=== PATIENT | female | born 1990 | race Caucasian/White ===

== ENCOUNTER 2017-11-30 13:43 | Outpatient (REF) | payer MEDICAID, SELFPAY | END 2017-11-30 14:03 | LOC: LBN 13:43 | PROVIDERS: Visit Provider Nurse Practitioner Family | DX: N76.0 Acute vaginitis (principal) | CPT/HCPCS: 87086 ==

== ENCOUNTER 2017-12-21 07:49 | Emergency (ER) | payer MEDICAID, SELFPAY ==
[2017-12-21 07:58] VITALS: BP 130/82; PULSE 85; RESP 16; TEMP 36.7
[2017-12-21 08:08] LABS: Bilirubin Negative (Negative); Blood Negative (Negative); Clarity Clear; Glucose Negative (Negative); Ketones Negative (Negative); Leukocyte Esterase Negative (Negative); Nitrite Negative (Negative); Urobilinogen 0.2 EU/dL (Up TO 0.2); pH 6.5 (5-8)
--- NOTE | 2017-12-21 08:11 | DI.US_ITS ---
SYMPTOM/DIAGNOSIS: LLQ PAIN, ? OVARIAN CYST, VOMITING PELVIC ULTRASOUND: Pelvic ultrasound was performed transabdominally and transvaginally. Please see the worksheet for measurements of the pelvic structures. Uterus is normal in appearance with a 5 mm. homogeneous endometrial stripe. Ovaries have a normal follicular appearance. Limited scanning of the kidneys is unremarkable. No free fluid identified in the cul-de-sac. CONCLUSION: Unremarkable pelvic ultrasound.
[2017-12-21] MEDS: Ibuprofen 800 MG TAB PO (08:16)
[2017-12-21] MEDS: Acetaminophen 500 MG TAB 1000 MG PO (08:17)
--- NOTE | 2017-12-21 08:51 | W.ED.GENAD ---
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: Pain in joint involving left pelvic region and thigh Primary Care Provider: Daphney Blanco ED Provider: Hasmukh Drake Home Meds and New Rx's Prescriptions: New acetaminophen [Mapap Extra Strength] 500 MG tablet 1,000 mg PO Q6H 5 Days Qty: 60 RF: 0 ibuprofen [Motrin IB] 200 MG tablet 600 mg PO Q6H 5 Days Qty: 60 RF: 0 No Action etonogestrel-ethinyl estradiol [NuvaRing] 1 EACH ring 1 ea VG DIRECTED Qty: 3 RF: 4 sertraline 50 MG tablet 50 mg PO DAILY Qty: 90 RF: 2 albuterol sulfate [Ventolin HFA] 60 PUFF HFA aerosol inhaler 2 puff Inhalation QID PRNRF: 0 Discharge Instructions Instructions: Pelvic Pain in Women (ED) Additional Instructions: Please take Tylenol Motrin for your pain. Please follow-up at your scheduled appointment tomorrow with your woman's clinic. If you notice any worsening of your symptoms, or any new symptoms such as vomiting, diarrhea, fever, chills, shortness of breath, chest pain, numbness, weakness, or fainting , please return immediately to the emergency department for reevaluation. Please follow up with your primary care provider as soon as possible for reassessment and reevaluation. As always, it was a pleasure participating in your medical care today. Referrals: Daphney Blanco, L[employer] HE[employer] ADVOCATE [Primary Care Provider] - Medical Decision Making This is a pleasant 27-year-old female who presents for evaluation of left lower pelvic pain, that is been present for the last month but is worsened in the last few days. She has had associated vaginal discharge which she describes as green. Pain is worse in the night in the morning. Urinary frequency is noted as well. No history of STDs in the past. Physical exam demonstrates left-sided pelvic pain, minimal discharge. And concern for potential ovarian cyst as the source of her symptoms secondary to the duration, however STDs and PID is certainly on the differential. We will get an ultrasound to rule out these acute processes. We will treat prophylactically with Rocephin and azithromycin at this time. 10:46 AM Patient's smears have come back negative for trichomoniasis, yeast, or bacterial vaginosis. No need for additional treatment in regards to these. We are still pending ultrasound evaluation results. 11:19 AM The patient's ultrasound came back and per the radiologist there is no acute process, no signs of torsion, blood flow noted in both ovaries, no free fluid in the pelvis, and small cysts that are presentI did reevaluate the patient and she is feeling much better at this time. Repeat abdominal exam demonstrates no right lower quadrant tenderness. Pain continues to be very mild but localized in the left lower pelvic region. I do not feel that there is any acute abdominal pathology at this point. Her clinical exam would be inconsistent with any acute abdominal process with the current location of her pain. Urinalysis is negative, I feel that her symptoms may be secondary to mittelschmerz, or her periods. We did provide prophylactic Rocephin and azithromycin. She does have follow-up tomorrow morning at her woman's health clinic, we do recommend close follow-up there we discussed red flags which to return the patient understands. I have extensively reviewed the treatment plan and discharge instructions with the patient. I have addressed all patient concerns at this time. The patient was made aware of what symptoms to monitor for that would warrant a return to the emergency department. Discussed the plan with the patient, they demonstrate verbal understanding and agreement with our assessment and plan at this time. HPI General Date/Time Provider Initiated Documentation: 12/21/17 08:11. HPI Narrative: This is a pleasant 27-year-old female with no significant past medical history who presents today for evaluation of left lower quadrant pain for the last month she is notably worsened in the last few days. She states that the pain is gradually been getting worse, she describes it as sharp in nature. It comes and goes in severity. It is worse at night and in the morning. There are no relieving factors. No particular aggravating factors. Associated symptoms include one episode of vomiting that occurred this morning, which to concern her and brought her in. Additionally she has had associated vaginal discharge which she describes as green in color. She denies any history of STDs. She does have increase in urinary frequency but denies any dysuria fever or chills. The patient also states that 1-2 weeks ago she had an episode of intercourse, and had notable dyspareunia and severe pain after this, it is not had intercourse since then. She admits to only having one sexual partner, and denies any other sexual partners or any history of STDs. She denies any hematemesis, hematochezia, melena, or acholic stool. She states the vomiting was secondary to pain rather than nausea. She denies any previous abdominal surgeries. She has no other complaints at this time. She denies any IV or illicit drug use she denies any pertinent family history. Of note she does use the NuvaRing and took this out 2 days ago. Her last menstrual period was 3 weeks ago. Related Data Home Medications Medication Instructions Recorded Confirmed albuterol sulfate [Ventolin HFA] 2 puff INHALATION QID PRN inh 01/01/17 11/30/17 etonogestrel-ethinyl estradiol 1 ea VG DIRECTED #3 vag.ring 03/27/17 11/30/17 [Nuvaring Vaginal Ring] sertraline 50 mg PO DAILY #90 tab-cap 05/23/17 11/30/17 acetaminophen [Mapap Extra 1,000 mg PO Q6H 5 Days #60 tab 12/21/17 Strength] ibuprofen [Motrin Ib] 600 mg PO Q6H 5 Days #60 tab 12/21/17 Previous Rx's Medication Instructions Recorded albuterol sulfate [Ventolin HFA] 2 puff INHALATION QID PRN inh 01/01/17 etonogestrel-ethinyl estradiol 1 ea VG DIRECTED #3 vag.ring 03/27/17 [Nuvaring Vaginal Ring] sertraline 50 mg PO DAILY #90 tab-cap 05/23/17 acetaminophen [Mapap Extra 1,000 mg PO Q6H 5 Days #60 tab 12/21/17 Strength] ibuprofen [Motrin Ib] 600 mg PO Q6H 5 Days #60 tab 12/21/17 Allergies Allergy/AdvReac Type Severity Reaction Status Date / Time gluten Allergy Unverified 12/21/17 08:09 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 Grandfather Essential hypertension Heart disease Grandfather Essential hypertension Neoplasm Grandmother Hyperlipidemia Grandmother Essential hypertension Depression Heart disease Cerebrovascular accident Medical History ADHD (attention deficit hyperactivity disorder), inattentive type Allergic rhinitis Celiac disease GERD (gastroesophageal reflux disease) Migraine Mild obstructive sleep apnea Proteinuria Social History household members: other details: 3 current occupational status: employed current occupation: [employer] pets and animals: Yes pets and animals: cat(s) Smoking/Tobacco Use Status: Former Tobacco Use alcohol intake: never substance use type: does not use special rea needs: No seatbelt use: sometimes helmet use: Yes 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 3.ENT: Atraumatic external nose and ears. Moist MM. Neck: Symmetric, trachea midline, No thyromegaly. 4.CVS: +S1/S2, No murmurs or gallops. Peripheral pulses 2+ and equal in all extremities. Brisk capillary refill in all extremities. 5.RESP: Unlabored respiratory effort. Clear to auscultation bilaterally. No wheezes rales or rhonchi 6.GI: Soft, Nontender/Nondistended, No hepatosplenomegaly. No guarding or rebound. No pain at McBurney's point, negative Munoz sign. Palpation of the pelvis elicited mild left lower pelvic pain. Negative Rovsing sign. No right lower pelvic pain. exam was performed with nurse at bedside, no significant lesions. Minimal whitish discharge was noted. Bimanual demonstrated mild tenderness on left-sided bimanual exam, no cervical motion tenderness. 7.MSK: Normocephalic/Atraumatic, Extremities w/o deformity or ttp No cyanosis or clubbing, Normal movement of all extremities 8.Skin: Warm, Dry. No rashes or lesions. 9.Neuro: orientation & mobility specialist II-XII grossly intact. Sensation grossly intact, no focal neurologic deficits. 10.Psych: (AAO) x3. Appropriate mood and affect Course Vital Signs Temperature 36.7 C 12/21/17 07:58 Pulse 85 12/21/17 07:58 Respiratory Rate 16 10/25/18 07:58 Blood Pressure 130/82 12/21/17 07:58 Temperature 36.7 C 12/21/17 07:58 Temperature Source Temporal Artery Scan 12/21/17 07:58 Pulse 85 12/21/17 07:58 Respiratory Rate 16 12/21/17 07:58 Respiratory Effort Non-Labored 12/21/17 08:07 Blood Pressure 130/82 12/21/17 07:58 Blood Pressure Position Sitting 12/21/17 07:58 Oxygen Delivery Method Room Air 12/21/17 07:58 Oxygen Flow Rate 0 12/21/17 07:58 Pain Level 8 12/21/17 08:17 Lab/Test Results Lab/Test Results: 12/21/17 08:14 Vaginal Vaginitis Screen - Pending Laboratory Tests Range/Units 12/21/17 08:00 Urine Color (Yellow) Yellow Urine Clarity Clear Urine pH (5-8) 6.5 Ur Specific [place] (1.005-1.025) 1.020 Urine Protein (Negative) mg/dL Negative Urine Ketones (Negative) mg/dL Negative Urine Blood (Negative) Negative Urine Nitrite (Negative) Negative Urine Bilirubin (Negative) Negative Urine Urobilinogen (Up TO 0.2) EU/dL 0.2 Ur Leukocyte Esterase (Negative) Negative Urine Glucose (Negative) mg/dL Negative POC- Test(urine) Negative
--- NOTE | 2017-12-21 08:54 | ED.GENADUL_ITS ---
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 Clinical Impression: Pain in joint involving left pelvic region and thigh Primary Care Provider: Daphney Blanco ED Provider: Hasmukh Drake Home Meds and New Rx's Prescriptions: New acetaminophen [Mapap Extra Strength] 500 MG tablet 1,000 mg PO Q6H 5 Days Qty: 60 RF: 0 ibuprofen [Motrin IB] 200 MG tablet 600 mg PO Q6H 5 Days Qty: 60 RF: 0 No Action etonogestrel-ethinyl estradiol [NuvaRing] 1 EACH ring 1 ea VG DIRECTED Qty: 3 RF: 4 sertraline 50 MG tablet 50 mg PO DAILY Qty: 90 RF: 2 albuterol sulfate [Ventolin HFA] 60 PUFF HFA aerosol inhaler 2 puff Inhalation QID PRNRF: 0 Discharge Instructions Instructions: Pelvic Pain in Women (ED) Additional Instructions: Please take Tylenol Motrin for your pain. Please follow-up at your scheduled appointment tomorrow with your woman's clinic. If you notice any worsening of your symptoms, or any new symptoms such as vomiting, diarrhea, fever, chills, shortness of breath, chest pain, numbness, weakness, or fainting , please return immediately to the emergency department for reevaluation. Please follow up with your primary care provider as soon as possible for reassessment and reevaluation. As always, it was a pleasure participating in your medical care today. Referrals: Daphney Blanco, OPEN SOURCE DEVELOPER [Primary Care Provider] - Medical Decision Making This is a pleasant 27-year-old female who presents for evaluation of left lower pelvic pain, that is been present for the last month but is worsened in the last few days. She has had associated vaginal discharge which she describes as green. Pain is worse in the night in the morning. Urinary frequency is noted as well. No history of STDs in the past. Physical exam demonstrates left-sided pelvic pain, minimal discharge. And concern for potential ovarian cyst as the source of her symptoms secondary to the duration, however STDs and PID is certainly on the differential. We will get an ultrasound to rule out these acute processes. We will treat prophylactically with Rocephin and azithromycin at this time. 10:46 AM Patient's smears have come back negative for trichomoniasis, yeast, or bacterial vaginosis. No need for additional treatment in regards to these. We are still pending ultrasound evaluation results. 11:19 AM The patient's ultrasound came back and per the radiologist there is no acute process, no signs of torsion, blood flow noted in both ovaries, no free fluid in the pelvis, and small cysts that are presentI did reevaluate the patient and she is feeling much better at this time. Repeat abdominal exam demonstrates no right lower quadrant tenderness. Pain continues to be very mild but localized in the left lower pelvic region. I do not feel that there is any acute abdominal pathology at this point. Her clinical exam would be inconsistent with any acute abdominal process with the current location of her pain. Urinalysis is negative, I feel that her symptoms may be secondary to mittelschmerz, or her periods. We did provide prophylactic Rocephin and azithromycin. She does have follow-up tomorrow morning at her woman's health clinic, we do recommend close follow-up there we discussed red flags which to return the patient understands. I have extensively reviewed the treatment plan and discharge instructions with the patient. I have addressed all patient concerns at this time. The patient was made aware of what symptoms to monitor for that would warrant a return to the emergency department. Discussed the plan with the patient, they demonstrate verbal understanding and agreement with our assessment and plan at this time. HPI General Date/Time Provider Initiated Documentation: 12/21/17 08:11 . HPI Narrative: This is a pleasant 27-year-old female with no significant past medical history who presents today for evaluation of left lower quadrant pain for the last month she is notably worsened in the last few days. She states that the pain is gradually been getting worse, she describes it as sharp in nature. It comes and goes in severity. It is worse at night and in the morning. There are no relieving factors. No particular aggravating factors. Associated symptoms include one episode of vomiting that occurred this morning, which to concern her and brought her in. Additionally she has had associated vaginal discharge which she describes as green in color. She denies any history of STDs. She does have increase in urinary frequency but denies any dysuria fever or chills. The patient also states that 1-2 weeks ago she had an episode of intercourse, and had notable dyspareunia and severe pain after this, it is not had intercourse since then. She admits to only having one sexual partner, and denies any other sexual partners or any history of STDs. She denies any hematemesis, hematochezia, melena, or acholic stool. She states the vomiting was secondary to pain rather than nausea. She denies any previous abdominal surgeries. She has no other complaints at this time. She denies any IV or illicit drug use she denies any pertinent family history. Of note she does use the NuvaRing and took this out 2 days ago. Her last menstrual period was 3 weeks ago. Related Data Home Medications Medication Instructions Recorded Confirmed albuterol sulfate [Ventolin HFA] 2 puff INHALATION QID PRN inh 01/01/17 etonogestrel-ethinyl estradiol 1 ea VG DIRECTED #3 vag.ring 03/27/17 11/30/17 [Nuvaring Vaginal Ring] sertraline 50 mg PO DAILY #90 tab-cap 05/23/17 11/30/17 acetaminophen [Mapap Extra 1,000 mg PO Q6H 5 Days #60 tab 12/21/17 Strength] ibuprofen [Motrin Ib] 600 mg PO Q6H 5 Days #60 tab 12/21/17 Previous Rx's Medication Instructions Recorded albuterol sulfate [Ventolin HFA] 2 puff INHALATION QID PRN inh 01/01/17 etonogestrel-ethinyl estradiol 1 ea VG DIRECTED #3 vag.ring 03/27/17 [Nuvaring Vaginal Ring] sertraline 50 mg PO DAILY #90 tab-cap 05/23/17 acetaminophen [Mapap Extra 1,000 mg PO Q6H 5 Days #60 tab 12/21/17 Strength] ibuprofen [Motrin Ib] 600 mg PO Q6H 5 Days #60 tab 12/21/17 Allergies Allergy/AdvReac Type Severity Reaction Status Date / Time gluten Allergy Unverified 12/21/17 08:09 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 pets and animals: Yes pets and animals: cat(s) Smoking/Tobacco Use Status: Former Tobacco Use alcohol intake: never substance use type: does not use special rea needs: No seatbelt use: sometimes helmet use: Yes helmet use: always 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 3.ENT: Atraumatic external nose and ears. Moist MM. Neck: Symmetric, trachea midline, No thyromegaly. 4.CVS: +S1/S2, No murmurs or gallops. Peripheral pulses 2+ and equal in all extremities. Brisk capillary refill in all extremities. 5.RESP: Unlabored respiratory effort. Clear to auscultation bilaterally. No wheezes rales or rhonchi 6.GI: Soft, Nontender/Nondistended, No hepatosplenomegaly. No guarding or rebound. No pain at McBurney's point, negative Munoz sign. Palpation of the pelvis elicited mild left lower pelvic pain. Negative Rovsing sign. No right lower pelvic pain. exam was performed with nurse at bedside, no significant lesions. Minimal whitish discharge was noted. Bimanual demonstrated mild tenderness on left-sided bimanual exam, no cervical motion tenderness. 7.MSK: Normocephalic/Atraumatic, Extremities w/o deformity or ttp No cyanosis or clubbing, Normal movement of all extremities 8.Skin: Warm, Dry. No rashes or lesions. 9.Neuro: human intelligence II-XII grossly intact. Sensation grossly intact, no focal neurologic deficits. 10.Psych: (AAO) x3. Appropriate mood and affect Course Vital Signs Temperature 36.7 C 12/21/17 07:58 Pulse 85 12/21/17 07:58 Respiratory Rate 16 10/25/18 07:58 Blood Pressure 130/82 12/21/17 07:58 Temperature 36.7 C 12/21/17 07:58 Temperature Source Temporal Artery Scan 12/21/17 07:58 Pulse 85 12/21/17 07:58 Respiratory Rate 16 12/21/17 07:58 Respiratory Effort Non-Labored 12/21/17 08:07 Blood Pressure 130/82 12/21/17 07:58 Blood Pressure Position Sitting 12/21/17 07:58 Oxygen Delivery Method Room Air 12/21/17 07:58 Oxygen Flow Rate 0 12/21/17 07:58 Pain Level 8 12/21/17 08:17 Lab/Test Results Lab/Test Results: 12/21/17 08:14 Vaginal Vaginitis Screen - Pending Laboratory Tests Range/Units 12/21/17 08:00 Urine Color (Yellow) Yellow Urine Clarity Clear Urine pH (5-8) 6.5 Ur Specific [place] (1.005-1.025) 1.020 Urine Protein (Negative) mg/dL Negative Urine Ketones (Negative) mg/dL Negative Urine Blood (Negative) Negative Urine Nitrite (Negative) Negative Urine Bilirubin (Negative) Negative Urine Urobilinogen (Up TO 0.2) EU/dL 0.2 Ur Leukocyte Esterase (Negative) Negative Urine Glucose (Negative) mg/dL Negative POC- Test(urine) Negative
[2017-12-21] MEDS: cefTRIAXone 250 MG VIAL IM (09:40)
[2017-12-21] MEDS: Azithromycin 250 MG TAB 1000 MG PO (09:40)
[2017-12-21 11:37] VITALS: BP 145/84; PULSE 70; RESP 16; TEMP 36.7; O2SAT 99
[2017-12-22 16:37] LABS: Chlamydia Result Negative; GC Result Negative; Specimen Description CERVIX
== END 2017-12-21 11:34 | disposition home or self-care (01) ==
PROVIDERS: Emergency Provider Student in an Organized Health Care Education/Training Program
DX: R10.2 Pelvic and perineal pain (principal); N89.8 Other specified noninflammatory disorders of vagina
CPT/HCPCS: 81025; 87491; 87591; 96372; 99284; 76830; 76856; 81003; 87480; 87510; 87660; J0696

== ENCOUNTER 2018-05-18 14:29 | Outpatient (REF) | payer MEDICAID, SELFPAY ==
--- NOTE | 2018-05-18 14:15 | PAPFT_PTH ---
PATIENT: Clarissa Yusuf LOC: [facility] U#:[id number] AGE/SX: 28/F ROOM: RE05/18/[address]: CICI Cortez : 1990 BED: DIS: 05/18/2018 SPEC #: [id number] RECD: 05/21/18 17:53 STATUS: ROBINA REDa #: [id number] SEPIDEH: 05/18/18 14:[address]: Erica Mullins DEPT: [facility] Cytology RECD BY: Aleta Thayer ENTERED: 05/21/18 17:54 SP TYPE: PAPFT OTHR DR: Daphney Blanco APRN Tissues: 1 - CX/ENDOCX FOR PAP SMEARS Procedures: PAP THIN PREP/[facility] Screening Comments: [id number] (CHLAMYDIA/GC)
[2018-05-22 14:18] LABS: Chlamydia Result Negative; GC Result Negative; Specimen Description SEE COMMENTS
== END 2018-05-18 14:49 ==
LOC: LBN 14:29
PROVIDERS: Visit Provider Nurse Practitioner Family
DX: Z11.3 Encounter for screening for infections with a predominantly sexual mode of transmission (principal); Z12.4 Encounter for screening for malignant neoplasm of cervix
CPT/HCPCS: 87491; 87591; 88142; 87480; 87510; 87660

== ENCOUNTER 2018-05-24 08:36 | Outpatient (CLI) | payer MEDICAID, SELFPAY ==
[2018-05-25 09:34] LABS: HIV-1/2 Ag & Ab Screen Negative (NEGAT)
[2018-05-25 09:42] LABS: Hepatitis C Ab w Rflx HCV PCR Negative (NEGAT)
[2018-05-25 13:03] LABS: Syphilis Serology (RPR) Negative (Negative)
== END 2018-05-24 08:56 ==
PROVIDERS: Visit Provider Nurse Practitioner Family
DX: Z11.3 Encounter for screening for infections with a predominantly sexual mode of transmission (principal); Z11.4 Encounter for screening for human immunodeficiency virus [HIV]; Z11.59 Encounter for screening for other viral diseases
CPT/HCPCS: 36415; 86803; 87389; 86592

== ENCOUNTER 2018-08-09 19:30 | Outpatient (REF) | payer MEDICAID, SELFPAY ==
[2018-08-09 19:59] LABS: Bilirubin Negative (Negative); Blood Trace-intact (Negative); Glucose Negative (Negative); Ketones Trace mg/dL (Negative); Leukocyte Esterase Small (Negative); Nitrite Negative (Negative); Specific Gravity 1.025 (1.005-1.025); Urobilinogen 0.2 EU/dL (Up TO 0.2)
[2018-08-09 20:20] LABS: Clarity Clear
[2018-08-09 20:32] LABS: Bacteria Moderate HPF (Negative); C & S Indicated? C&S Done As Ordered; Casts Negative LPF (Negative); Crystals Negative HPF (Negative); Epithelial Cells Moderate HPF (Negative); Mucus Negative (Negative); WBC >50 HPF (0-5)
== END 2018-08-09 19:50 ==
LOC: LBN 19:30
PROVIDERS: PCP Nurse Practitioner Family; Visit Provider Family Medicine
DX: R35.0 Frequency of micturition (principal)
CPT/HCPCS: 81003; 81015; 87086

== ENCOUNTER 2018-08-13 17:28 | Emergency (ER) | payer MEDICAID, SELFPAY ==
[2018-08-13 17:31] VITALS: BP 122/81; PULSE 99; RESP 14; TEMP 38.5; O2SAT 97
--- NOTE | 2018-08-13 17:48 | W.ED.GENAD ---
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 Clinical Impression: Pyelonephritis Primary Care Provider: Erica Mullins ED Provider: Pablo Schwartz Home Meds and New Rx's Prescriptions: New ciprofloxacin HCl 500 mg tablet 500 mg PO BID Qty: 14 RF: 0 Continued triamcinolone acetonide 0.05 % ointment 1 applic TP DAILY Qty: 430 RF: 0 metronidazole [MetroCream] 0.75 % cream 1 applic TP BID Qty: 45 RF: 0 nitrofurantoin macrocrystal [Macrodantin] 100 mg capsule 100 mg PO Q12H Qty: 10 RF: 0 triamcinolone acetonide 0.025 % cream 1 applic TP DAILY Qty: 80 RF: 0 NuvaRing 0.12-0.015 mg/24 hr ring 1 vag ring VG DIRECTED Qty: 3 RF: 6 sertraline 50 mg tablet 50 mg PO DAILY Qty: 90 RF: 2 albuterol sulfate [Ventolin HFA] 60 PUFF HFA aerosol inhaler 2 puff Inhalation QID PRNRF: 0 Discontinued doxycycline hyclate 100 mg capsule 100 mg PO BID Qty: 14 RF: 1 Discharge Instructions Instructions: Kidney Infection (ED) Additional Instructions: follow up with your primary care provider within a week if you feel significantly more ill or have severe worsening of pain return to the emergency department for reevaluation Medical Decision Making 28 yo female comes in with burning with urination and lower back pain since starting macrobid for uti last . She contiinues to have these and fevers/body aches so came here from pcp's office. She apparently had a pelvic exam in the office showing copious d/c as she had bleeding on her pad and wasn't sure if it was from her hemorrhoid or vagina. She is speaking in full setntences in no distress and appears well systemically, is noted to havea fever. She has no significant abodminal tenderness on exam. I suspect pyelo, will obtain Ua and also urine gc/chlamydia though she states she has no hx of std's and isn't sexually active. Will also perform pelvic exam ua does have some bacteria in it, culture ordered and will change abx to cipro and have her stop macrobid. her vaginal exam showed a small amount of clearish discharge, no blood, and no cervical motion tenderness so do not feel tx for pid indicated at this time. Will have her f/u with pcp and return precautions given Differential Diagnosis pyelo, pid, Lab Data Lab results reviewed: Yes I reviewed the patient's lab results. HPI General Mode of arrival: ambulatory. Date/Time Provider Initiated Documentation: 08/13/18 17:38. Limitations to Documentation: no limitations. Information obtained by: patient. History of Present Illness 28 year old F presents to the emergency department with the chief complaint of lower back pain, described as moderate, Quality is described as burning, Patient started experiencing this day(s) (3) and it has been constant. No relieving factors improve symptom(s), No exacerbating factors reported . Patient did receive the following treatments prior to arrival, none Related Data Home Medications Medication Instructions Recorded Confirmed albuterol sulfate [Ventolin HFA] 2 puff INHALATION QID PRN inh 01/01/17 08/13/18 triamcinolone acetonide 0.025 % 1 applic TP DAILY #80 gm 05/24/18 08/13/18 topical cream triamcinolone acetonide 0.05 % 1 applic TP DAILY #430 gm 05/24/18 08/13/18 topical ointment etonogestrel-ethinyl estradiol 1 vag ring VG DIRECTED #3 each 06/05/18 08/13/18 0.12 mg -0.015 mg/24 hr vaginal ring sertraline 50 mg tablet 50 mg PO DAILY #90 tab-cap 06/05/18 08/13/18 metronidazole 0.75 % topical cream 1 applic TP BID #45 gm 08/08/18 08/13/18 nitrofurantoin macrocrystal 100 mg 100 mg PO Q12H #10 cap 08/09/18 08/13/18 capsule ciprofloxacin HCl 500 mg PO BID #14 tab 08/13/18 Previous Rx's Medication Instructions Recorded albuterol sulfate [Ventolin HFA] 2 puff INHALATION QID PRN inh 01/01/17 triamcinolone acetonide 0.025 % 1 applic TP DAILY #80 gm 05/24/18 topical cream triamcinolone acetonide 0.05 % 1 applic TP DAILY #430 gm 05/24/18 topical ointment etonogestrel-ethinyl estradiol 1 vag ring VG DIRECTED #3 each 06/05/18 0.12 mg -0.015 mg/24 hr vaginal ring sertraline 50 mg tablet 50 mg PO DAILY #90 tab-cap 06/05/18 metronidazole 0.75 % topical cream 1 applic TP BID #45 gm 08/08/18 nitrofurantoin macrocrystal 100 mg 100 mg PO Q12H #10 cap 08/09/18 capsule ciprofloxacin HCl 500 mg PO BID #14 tab 08/13/18 Allergies Allergy/AdvReac Type Severity Reaction Status Date / Time gluten Allergy Verified 08/13/18 17:38 General Stated Complaint: FOUNDATION COORDINATOR ARIK: 3 Review of Systems Review of Systems All systems reviewed & are unremarkable except as noted in HPI and below Constitutional Denies chills, Denies fever(s) and Denies weakness Cardiovascular Denies chest pain and Denies dyspnea Respiratory Denies dyspnea Gastrointestinal Denies vomiting Musculoskeletal Denies joint swelling Neurologic Denies weakness PFSH Social History Smoking/Tobacco Use Status: Former Tobacco Use Alcohol Intake: never Drug use: Never Substance use type: does not use Household members: other Details: 3 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 Pets and animals: Yes Pets and animals: cat(s) What type of physical activity do you participate in: none Special rea needs: No Seatbelt use: sometimes Helmet use: Yes Helmet use: always Drive intox or ride w/intox bicycle taxi driver: No Water heater temp set <120 deg: No Working smoke detector in home: Yes Fire extinguisher in home: Yes Carbon monox detector in home: Yes Firearms in home: No Do you feel safe at home: Yes Do you feel safe in your relationship?: Yes Victim of physical abuse: No Victim of emotional abuse: No Victim of sexual abuse: No Female Reproductive History Menstrual control method: vaginal ring History History 1 Para 1 Hx # Term Pregnancies Multiple births Hx # Pregnancies Ectopic pregnancies AB induced Hx Number of Living Children AB spontaneous Exam Const General: no acute distress Orientation: alert HENMT Head: normal to inspection Ears: external ears normal General nose exam: external nose normal Mouth: moist mucous membranes Eyes General: appearance normal, both eyes and all related structures Neck Neck: normal visual inspection Resp Effort & Inspection: normal respiratory effort and able to speak in complete sentences Cardio Rate: regular rate Skin General skin exam: no rashes or lesions noted Neuro General: alert and oriented x3 Extrem General: normal to inspection Psych Mental Status: mental status grossly normal Course Vital Signs Temperature 38.5 C H 08/13/18 17:31 Pulse 99 H 08/13/18 17:31 Respiratory Rate 14 08/13/18 17:31 Blood Pressure 122/81 08/13/18 17:31 Pulse Oximetry 97 08/13/18 17:31 Temperature 38.5 C H 08/13/18 17:31 Temperature Source Skin 08/13/18 17:31 Pulse 99 H 08/13/18 17:31 Respiratory Rate 14 08/13/18 17:31 Blood Pressure 122/81 08/13/18 17:31 Blood Pressure Position Sitting 08/13/18 17:31 Pulse Oximetry 97 08/13/18 17:31 Oxygen Delivery Method Room Air 08/13/18 17:31 Oxygen Flow Rate 0 08/13/18 17:31 Pain Level 5 08/13/18 17:31
--- NOTE | 2018-08-13 17:52 | ED.GENADUL_ITS ---
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 Clinical Impression: Pyelonephritis Primary Care Provider: Erica Mullins ED Provider: Pablo Schwartz Home Meds and New Rx's Prescriptions: New ciprofloxacin HCl 500 mg tablet 500 mg PO BID Qty: 14 RF: 0 Continued triamcinolone acetonide 0.05 % ointment 1 applic TP DAILY Qty: 430 RF: 0 metronidazole [MetroCream] 0.75 % cream 1 applic TP BID Qty: 45 RF: 0 nitrofurantoin macrocrystal [Macrodantin] 100 mg capsule 100 mg PO Q12H Qty: 10 RF: 0 triamcinolone acetonide 0.025 % cream 1 applic TP DAILY Qty: 80 RF: 0 NuvaRing 0.12-0.015 mg/24 hr ring 1 vag ring VG DIRECTED Qty: 3 RF: 6 sertraline 50 mg tablet 50 mg PO DAILY Qty: 90 RF: 2 albuterol sulfate [Ventolin HFA] 60 PUFF HFA aerosol inhaler 2 puff Inhalation QID PRNRF: 0 Discontinued doxycycline hyclate 100 mg capsule 100 mg PO BID Qty: 14 RF: 1 Discharge Instructions Instructions: Kidney Infection (ED) Additional Instructions: follow up with your primary care provider within a week if you feel significantly more ill or have severe worsening of pain return to the emergency department for reevaluation Medical Decision Making 28 yo female comes in with burning with urination and lower back pain since starting macrobid for uti last . She contiinues to have these and fevers/body aches so came here from pcp's office. She apparently had a pelvic exam in the office showing copious d/c as she had bleeding on her pad and wasn't sure if it was from her hemorrhoid or vagina. She is speaking in full setntences in no distress and appears well systemically, is noted to havea fever. She has no significant abodminal tenderness on exam. I suspect pyelo, will obtain Ua and also urine gc/chlamydia though she states she has no hx of std's and isn't sexually active. Will also perform pelvic exam ua does have some bacteria in it, culture ordered and will change abx to cipro and have her stop macrobid. her vaginal exam showed a small amount of clearish discharge, no blood, and no cervical motion tenderness so do not feel tx for pid indicated at this time. Will have her f/u with pcp and return precautions given Differential Diagnosis pyelo, pid, Lab Data Lab results reviewed: Yes I reviewed the patient's lab results. HPI General Mode of arrival: ambulatory . Date/Time Provider Initiated Documentation: 08/13/18 17:38 . Limitations to Documentation: no limitations . Information obtained by: patient . History of Present Illness 28 year old F presents to the emergency department with the chief complaint of lower back pain, described as moderate, Quality is described as burning, Patient started experiencing this day(s) (3) and it has been constant. No relieving factors improve symptom(s), No exacerbating factors reported . Patient did receive the following treatments prior to arrival, none Related Data Home Medications Medication Instructions Recorded Confirmed albuterol sulfate [Ventolin HFA] 2 puff INHALATION QID PRN inh 01/01/17 08/13/18 triamcinolone acetonide 0.025 % 1 applic TP DAILY #80 gm 05/24/18 08/13/18 topical cream triamcinolone acetonide 0.05 % 1 applic TP DAILY #430 gm 05/24/18 08/13/18 topical ointment etonogestrel-ethinyl estradiol 1 vag ring VG DIRECTED #3 each 06/05/18 08/13/18 0.12 mg -0.015 mg/24 hr vaginal ring sertraline 50 mg tablet 50 mg PO DAILY #90 tab-cap 06/05/18 08/13/18 metronidazole 0.75 % topical cream 1 applic TP BID #45 gm 08/08/18 08/13/18 nitrofurantoin macrocrystal 100 mg 100 mg PO Q12H #10 cap 08/09/18 08/13/18 capsule ciprofloxacin HCl 500 mg PO BID #14 tab 08/13/18 Previous Rx's Medication Instructions Recorded albuterol sulfate [Ventolin HFA] 2 puff INHALATION QID PRN inh 01/01/17 triamcinolone acetonide 0.025 % 1 applic TP DAILY #80 gm 05/24/18 topical cream triamcinolone acetonide 0.05 % 1 applic TP DAILY #430 gm 05/24/18 topical ointment etonogestrel-ethinyl estradiol 1 vag ring VG DIRECTED #3 each 06/05/18 0.12 mg -0.015 mg/24 hr vaginal ring sertraline 50 mg tablet 50 mg PO DAILY #90 tab-cap 06/05/18 metronidazole 0.75 % topical cream 1 applic TP BID #45 gm 08/08/18 nitrofurantoin macrocrystal 100 mg 100 mg PO Q12H #10 cap 08/09/18 capsule ciprofloxacin HCl 500 mg PO BID #14 tab 08/13/18 Allergies Allergy/AdvReac Type Severity Reaction Status Date / Time gluten Allergy Verified 08/13/18 17:38 General 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 ARIK: 3 Review of Systems Review of Systems All systems reviewed & are unremarkable except as noted in HPI and below Constitutional Denies chills, Denies fever(s) and Denies weakness Cardiovascular Denies chest pain and Denies dyspnea Respiratory Denies dyspnea Gastrointestinal Denies vomiting Musculoskeletal Denies joint swelling Neurologic Denies weakness PFSH Social History Smoking/Tobacco Use Status: Former Tobacco Use Alcohol Intake: never Drug use: Never Substance use type: does not use Household members: other 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: 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 Pets and animals: Yes Pets and animals: cat(s) What type of physical activity do you participate in: none Special rea needs: No Seatbelt use: sometimes Helmet use: Yes Helmet use: always Drive intox or ride w/intox delivery driver/supervisor: No Water heater temp set <120 deg: No Working smoke detector in home: Yes Fire extinguisher in home: Yes Carbon monox detector in home: Yes Firearms in home: No Do you feel safe at home: Yes Do you feel safe in your relationship?: Yes Victim of physical abuse: No Victim of emotional abuse: No Victim of sexual abuse: No Female Reproductive History Menstrual control method: vaginal ring History History 1 Para 1 Hx # Term Pregnancies Multiple births Hx # Pregnancies Ectopic pregnancies AB induced Hx Number of Living Children AB spontaneous Exam Const General: no acute distress Orientation: alert HENMT Head: normal to inspection Ears: external ears normal General nose exam: external nose normal Mouth: moist mucous membranes Eyes General: appearance normal, both eyes and all related structures Neck Neck: normal visual inspection Resp Effort & Inspection: normal respiratory effort and able to speak in complete sentences Cardio Rate: regular rate Skin General skin exam: no rashes or lesions noted Neuro General: alert and oriented x3 Extrem General: normal to inspection Psych Mental Status: mental status grossly normal Course Vital Signs Temperature 38.5 C H 08/13/18 17:31 Pulse 99 H 08/13/18 17:31 Respiratory Rate 14 08/13/18 17:31 Blood Pressure 122/81 08/13/18 17:31 Pulse Oximetry 97 08/13/18 17:31 Temperature 38.5 C H 08/13/18 17:31 Temperature Source Skin 08/13/18 17:31 Pulse 99 H 08/13/18 17:31 Respiratory Rate 14 08/13/18 17:31 Blood Pressure 122/81 08/13/18 17:31 Blood Pressure Position Sitting 08/13/18 17:31 Pulse Oximetry 97 08/13/18 17:31 Oxygen Delivery Method Room Air 08/13/18 17:31 Oxygen Flow Rate 0 08/13/18 17:31 Pain Level 5 08/13/18 17:31
--- NOTE | 2018-08-13 18:16 | NUR.NOTE ---
Nursing Note: Chaperoned Dr. Schwartz during pelvic exam
--- NOTE | 2018-08-13 18:23 | NUR.NOTE ---
urine sample obtained Nursing Note:
[2018-08-13 18:36] LABS: Bilirubin Small (Negative); Blood Trace-intact (Negative); Clarity Clear; Glucose Negative (Negative); Ketones Trace mg/dL (Negative); Leukocyte Esterase Negative (Negative); Nitrite Negative (Negative); Specific Gravity >= 1.030 (1.005-1.025); Urobilinogen 0.2 EU/dL (Up TO 0.2)
[2018-08-13 18:45] LABS: Bacteria Few HPF (Negative); Epithelial Cells Rare HPF (Negative); Other Cells Negative (Negative); WBC 0-2 HPF (0-5)
[2018-08-13 18:46] LABS: C & S Indicated? No; Casts Negative LPF (Negative); Crystals Negative HPF (Negative); Mucus Moderate (Negative)
[2018-08-13] MEDS: Ciprofloxacin 500 MG TAB PO (19:26)
[2018-08-13 19:42] VITALS: BP 124/77; PULSE 92; RESP 18; TEMP 37.9
[2018-08-15 13:59] LABS: Chlamydia Result Negative; GC Result Negative; Specimen Description URINE
== END 2018-08-13 19:48 | disposition home or self-care (01) ==
PROVIDERS: Emergency Provider Emergency Medicine; PCP Nurse Practitioner Family
DX: N10 Acute pyelonephritis (principal)
CPT/HCPCS: 81025; 87491; 87591; 99283; 81003; 81015; 87086; 87480; 87510; 87660

== ENCOUNTER 2018-08-15 12:19 | Emergency (ER) | payer MEDICAID, SELFPAY ==
[2018-08-15 12:26] VITALS: BP 140/83; PULSE 84; RESP 20; TEMP 36.8; O2SAT 98
--- NOTE | 2018-08-15 12:33 | ED.GENADUL_ITS ---
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 Clinical Impression: Abnormal vaginal bleeding Primary Care Provider: Erica Mullins ED Provider: Rima Hughes Home Meds and New Rx's Prescriptions: Continued triamcinolone acetonide 0.05 % ointment 1 applic TP DAILY Qty: 430 RF: 0 metronidazole [MetroCream] 0.75 % cream 1 applic TP BID Qty: 45 RF: 0 triamcinolone acetonide 0.025 % cream 1 applic TP DAILY Qty: 80 RF: 0 NuvaRing 0.12-0.015 mg/24 hr ring 1 vag ring VG DIRECTED Qty: 3 RF: 6 sertraline 50 mg tablet 50 mg PO DAILY Qty: 90 RF: 2 albuterol sulfate [Ventolin HFA] 60 PUFF HFA aerosol inhaler 2 puff Inhalation QID PRNRF: 0 ciprofloxacin HCl 500 mg tablet 500 mg PO BID Qty: 14 RF: 0 Discontinued nitrofurantoin macrocrystal [Macrodantin] 100 mg capsule 100 mg PO Q12H Qty: 10 RF: 0 Discharge Instructions Instructions: Dysfunctional Uterine Bleeding (ED) Additional Instructions: Follow-up with your scheduled appointment with your primary care doctor on Monday. Call your retread mold operator tomorrow to schedule follow-up appointment for reevaluation of your vaginal bleeding. Return immediately to the emergency department if you develop any worsening or concerning symptoms of dizziness, chest pain, shortness of breath or worsening vaginal bleeding. Discharge Data Discharge Date/Time-TO BE ENTERED AT DEPARTURE: 08/15/18 16:37 Discharge Physician: Rima Hughes Medical Decision Making 28-year-old female with history of migraines, obstructive sleep apnea, ADHD who presents with heavy vaginal bleeding since 30 minutes ago. No complaints of fever, nausea, vomiting, abdominal pain, urinary symptoms, chest pain, shortness of breath or dizziness. She is on doxycycline for sinus infection and had been recently treated with Macrobid for UTI which was switched to Cipro in the ER 2 days ago. Her UTI symptoms are near resolved. She is on a nuva ring which was placed 2 weeks ago. She is sexually active denies any known exposure to STDs and recently was tested 2 weeks ago and negative for blood and culture testing for STDs. Patient is hemodynamically stable. She is texting on phone and appears in no acute distress. Differential diagnosis can include dysfunctional uterine bleeding due to hormonal changes, fibroids, will obtain a urinalysis to rule out , check screening labs including CBC, CMP and coagulation studies. 1500 --labs reviewed and unremarkable. test negative. Urinalysis notes large blood but no evidence of infection. Patient reassessed and denies any abdominal pain. She is still admits to some vaginal bleeding but states it is no worse. She is requesting to go home. She is declining pelvic exam. She has a follow-up appointment with her primary care doctor on Monday. She is instructed to discuss with him any further recommendations regarding her NuvaRing. She is also instructed to call her retread mold operator to schedule follow-up appointment for reevaluation and for further discussion of her vaginal bleeding. She is instructed to return here immediately if she has any worsening or new concerning symptoms such as dizziness, chest pain, shortness of breath or any significant worsening of bleeding. Medical Records Medical records reviewed: Yes I reviewed the patient's medical records. Lab Data Lab results reviewed: Yes I reviewed the patient's lab results. Laboratory Tests Range/Units 08/15/18 08/15/18 08/15/18 12:45 12:58 12:58 WBC (4.4-10.8) k/cumm 3.53 L RBC (4.00-5.20) m/cumm 4.54 Hgb (12.0-15.5) g/dL 13.5 Hct (36.0-46.0) % 40.2 MCV (80-95) fL 88.5 MCH (27.0-33.0) pg 29.7 MCHC (32.0-36.0) g/dL 33.6 RDW (11.7-14.6) % 14.6 Plt Count (130-400) x1000/uL 253 MPV (8.0-11.0) fL 9.4 Immature Gran % 0.3 Neutrophils % 40.9 Lymphocytes % 43.9 Monocytes % 11.3 Eosinophils % 2.5 Basophils % 1.1 Absolute Neutrophils (1.2-6.7) k/cumm 1.44 Absolute Lymphocytes (1.2-3.4) k/cumm 1.55 Absolute Monocytes (0.11-0.7) k/cumm 0.40 Absolute Eosinophils (0.0-0.7) k/cumm 0.09 Absolute Basophils (0.0-0.2) k/cumm 0.04 Differential Comment Diff reviewed RBC Morphology Normal PT (9.3-11.0) sec INR (0.9-1.1) APTT (21.0-31.4) sec Sodium (136-145) mmol/L 141 Potassium (3.5-5.1) mmol/L 3.5 Chloride (98-107) mmol/L 106 Carbon Dioxide (21.0-32.0) mmol/L 24.7 Anion Gap (3-11) mmol/L 10.3 BUN (7-18) mg/dL 11 Creatinine (0.55-1.02) mg/dL 0.92 Estimated GFR/1.73 m2 (mL/min/1.73m2) >= 60.00 Glucose (70-100) mg/dL 89 Calcium (8.5-10.1) mg/dL 8.3 L Total Bilirubin (0.2-1.0) mg/dL 0.3 AST (15-37) U/L 25 ALT (12-78) U/L 26 Alkaline Phosphatase (46-116) U/L 76 Total Protein (6.4-8.2) g/dL 7.4 Albumin (3.4-5.0) g/dL 3.1 L Urine Color (Yellow) Brown Urine Clarity Cloudy Urine pH (5-8) 6.0 Ur Specific [place] (1.005-1.025) >= 1.030 H Urine Protein (Negative) mg/dL 100 H Urine Ketones (Negative) mg/dL Negative Urine Blood (Negative) Large H Urine Nitrite (Negative) Negative Urine Bilirubin (Negative) Small H Urine Urobilinogen (Up TO 0.2) EU/dL 0.2 Ur Leukocyte Esterase (Negative) Negative Urine RBC (0-2) >50 H Urine WBC (0-5) HPF 0-2 Ur Epithelial Cells (Negative) HPF Few Urine Crystals (Negative) HPF Negative Urine Bacteria (Negative) HPF Few Urine Mucus (Negative) Negative Ur Culture Indicated? No Urine Glucose (Negative) mg/dL Negative Range/Units 08/15/18 12:58 WBC (4.4-10.8) k/cumm RBC (4.00-5.20) m/cumm Hgb (12.0-15.5) g/dL Hct (36.0-46.0) % MCV (80-95) fL MCH (27.0-33.0) pg MCHC (32.0-36.0) g/dL RDW (11.7-14.6) % Plt Count (130-400) x1000/uL MPV (8.0-11.0) fL Immature Gran % Neutrophils % Lymphocytes % Monocytes % Eosinophils % Basophils % Absolute Neutrophils (1.2-6.7) k/cumm Absolute Lymphocytes (1.2-3.4) k/cumm Absolute Monocytes (0.11-0.7) k/cumm Absolute Eosinophils (0.0-0.7) k/cumm Absolute Basophils (0.0-0.2) k/cumm Differential Comment RBC Morphology PT (9.3-11.0) sec 9.2 L INR (0.9-1.1) 0.9 APTT (21.0-31.4) sec 23.6 Sodium (136-145) mmol/L Potassium (3.5-5.1) mmol/L Chloride (98-107) mmol/L Carbon Dioxide (21.0-32.0) mmol/L Anion Gap (3-11) mmol/L BUN (7-18) mg/dL Creatinine (0.55-1.02) mg/dL Estimated GFR/1.73 m2 (mL/min/1.73m2) Glucose (70-100) mg/dL Calcium (8.5-10.1) mg/dL Total Bilirubin (0.2-1.0) mg/dL AST (15-37) U/L ALT (12-78) U/L Alkaline Phosphatase (46-116) U/L Total Protein (6.4-8.2) g/dL Albumin (3.4-5.0) g/dL Urine Color (Yellow) Urine Clarity Urine pH (5-8) Ur Specific [place] (1.005-1.025) Urine Protein (Negative) mg/dL Urine Ketones (Negative) mg/dL Urine Blood (Negative) Urine Nitrite (Negative) Urine Bilirubin (Negative) Urine Urobilinogen (Up TO 0.2) EU/dL Ur Leukocyte Esterase (Negative) Urine RBC (0-2) Urine WBC (0-5) HPF Ur Epithelial Cells (Negative) HPF Urine Crystals (Negative) HPF Urine Bacteria (Negative) HPF Urine Mucus (Negative) Ur Culture Indicated? Urine Glucose (Negative) mg/dL HPI General Mode of arrival: ambulatory . Date/Time Provider Initiated Documentation: 08/15/18 12:23 . Limitations to Documentation: no limitations . Information obtained by: patient . HPI Narrative: Patient is a 28-year-old female who presents with heavy vaginal bleeding since 30 minutes prior to arrival. Patient states her last menstrual. Was 2 weeks ago and had stopped until bleeding started this morning. She admits to large amount of clots. She states it just started and only changed her pad once. She denies any fever, nausea, vomiting, urinary symptoms or abdominal pain. Patient states she is on doxycycline for a sinus infection since last week. She states that she also saw her primary care doctor for a urinary tract infection last week and was started on Macrobid. She followed up at the PCP office 2 days ago due to urinary symptoms that had not improved and she was sent to the ER for evaluation of pyelonephritis and her antibiotics were switched to Cipro. She states her urinary symptoms are near resolved. Related Data Home Medications Medication Instructions Recorded Confirmed albuterol sulfate [Ventolin HFA] 2 puff INHALATION QID PRN inh 01/01/17 08/16/18 triamcinolone acetonide 0.025 % 1 applic TP DAILY #80 gm 05/24/18 08/16/18 topical cream triamcinolone acetonide 0.05 % 1 applic TP DAILY #430 gm 05/24/18 08/16/18 topical ointment etonogestrel-ethinyl estradiol 1 vag ring VG DIRECTED #3 each 06/05/18 08/16/18 0.12 mg -0.015 mg/24 hr vaginal ring sertraline 50 mg tablet 50 mg PO DAILY #90 tab-cap 06/05/18 08/16/18 metronidazole 0.75 % topical cream 1 applic TP BID #45 gm 08/08/18 08/16/18 ciprofloxacin HCl 500 mg PO BID #14 tab 08/13/18 08/16/18 Previous Rx's Medication Instructions Recorded albuterol sulfate [Ventolin HFA] 2 puff INHALATION QID PRN inh 01/01/17 triamcinolone acetonide 0.025 % 1 applic TP DAILY #80 gm 05/24/18 topical cream triamcinolone acetonide 0.05 % 1 applic TP DAILY #430 gm 05/24/18 topical ointment etonogestrel-ethinyl estradiol 1 vag ring VG DIRECTED #3 each 06/05/18 0.12 mg -0.015 mg/24 hr vaginal ring sertraline 50 mg tablet 50 mg PO DAILY #90 tab-cap 06/05/18 metronidazole 0.75 % topical cream 1 applic TP BID #45 gm 08/08/18 ciprofloxacin HCl 500 mg PO BID #14 tab 08/13/18 Allergies Allergy/AdvReac Type Severity Reaction Status Date / Time gluten Allergy Verified 08/16/18 10:12 General Stated 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 ARIK: 3 Review of Systems Review of Systems All systems reviewed & are unremarkable except as noted in HPI and below Constitutional Reports as per HPI, Denies chills and Denies fever(s) Eyes Denies blurry vision ENT Denies dizziness, Denies sore throat and Denies throat swelling Cardiovascular Denies chest pain and Denies dyspnea Respiratory Denies cough and Denies dyspnea Gastrointestinal Denies abdominal pain, Denies diarrhea and Denies vomiting Genitourinary Denies hematuria, Denies dysuria and Reports other (vaginal bleeding) Musculoskeletal Denies back pain and Denies numbness Integumentary/Breasts Denies lesions and Denies rash Neurologic Denies dizziness, Denies focal weakness and Denies numbness Allergic/Immunologic Denies throat swelling PFSH Surgical History No significant past surgical history (Acute) Family History Mother H/O lumpectomy Asthma Father Essential hypertension Sister No problems noted. Grandfather Essential hypertension Heart disease Grandfather Essential hypertension Neoplasm Grandmother Hyperlipidemia Grandmother Essential hypertension Depression Heart disease Stroke Social History Smoking/Tobacco Use Status: Former Tobacco Use Alcohol Intake: never Drug use: Never Substance use type: does not use Household members: other Details: 3 current occupation: [employer], [employer] Pets and animals: Yes Pets and animals: cat(s) What type of physical activity do you participate in: none Special rea needs: No Seatbelt use: sometimes Helmet use: Yes Helmet use: always Drive intox or ride w/intox wedding transportation driver: No Water heater temp set <120 deg: No Working smoke detector in home: Yes Fire extinguisher in home: Yes Carbon monox detector in home: Yes Firearms in home: No Do you feel safe at home: Yes Do you feel safe in your relationship?: Yes Victim of physical abuse: No Victim of emotional abuse: No Victim of sexual abuse: No Female Reproductive History Menstrual control method: vaginal ring History History 1 Para 1 Hx # Term Pregnancies Multiple births Hx # Pregnancies Ectopic pregnancies AB induced Hx Number of Living Children AB spontaneous Exam Const General: cooperative, healthy appearing and no acute distress HENMT Head: normal to inspection Face and sinus: normal facial exam Eyes General: appearance normal, both eyes and all related structures EOM: EOM intact bilaterally Neck Neck: normal visual inspection and No submandibular swelling Lymphatic: no lymphadenopathy noted Chest Chest: normal inspection of the chest and no tenderness Resp Effort & Inspection: normal respiratory effort and able to speak in complete sentences Auscultation: clear to auscultation bilaterally Cardio Rate: regular rate Rhythm: regular rhythm GI Inspection: normal to inspection Palpation: soft, not firm, not rigid and nontender Auscultation: normal bowel sounds Back/Spine/Pelvis Back: no CVA tenderness Skin General skin exam: no rashes or lesions noted Neuro General: alert, awake and oriented x3 Cognition: normal cognition Speech: speech normal Motor: muscle tone normal throughout Sensory Exam: no sensory deficits noted Extrem General: normal to inspection, full ROM, normal capillary refill, no calf tenderness bilaterally and no edema Psych Appearance: grossly normal Mental Status: mental status grossly normal Speech and Movement: speech and movement normal Affect: normal affect Course Vital Signs Temperature 98.2 F 08/15/18 12:26 Pulse 84 08/15/18 12:26 Respiratory Rate 20 08/15/18 12:26 Blood Pressure 140/83 08/15/18 12:26 Pulse Oximetry 98 08/15/18 12:26 Temperature 98.2 F 08/15/18 12:26 Temperature Source Temporal Artery Scan 08/15/18 12:26 Pulse 84 08/15/18 12:26 Respiratory Rate 20 08/15/18 12:26 Respiratory Effort Non-Labored 08/15/18 12:26 Blood Pressure 140/83 08/15/18 12:26 Pulse Oximetry 98 08/15/18 12:26 Pain Level 0 08/15/18 12:26
[2018-08-15 13:07] LABS: Bilirubin Small (Negative); Blood Large (Negative); Clarity Cloudy; Glucose Negative (Negative); Ketones Negative (Negative); Leukocyte Esterase Negative (Negative); Nitrite Negative (Negative); Specific Gravity >= 1.030 (1.005-1.025); Urobilinogen 0.2 EU/dL (Up TO 0.2)
[2018-08-15 13:09] LABS: Abs Immature Grans 0.01 k/cumm (0.0-0.09); Absolute Basophil Count 0.04 k/cumm (0.0-0.2); Absolute Eosinophil Count 0.09 k/cumm (0.0-0.7); Absolute Lymphocyte Count 1.55 k/cumm (1.2-3.4); Absolute Neutrophil Count 1.44 k/cumm (1.2-6.7); Basophils % 1.1; Eosinophils % 2.5; HCT 40.2 % (36.0-46.0); HGB 13.5 g/dL (12.0-15.5); Immature Grans % 0.3; Lymphocytes % 43.9; Mean Corp. HGB Concentration 33.6 g/dL (32.0-36.0); Mean Corpuscular Hemoglobin 29.7 pg (27.0-33.0); Mean Corpuscular Volume 88.5 fL (80-95); Mean Platelet Volume 9.4 fL (8.0-11.0); Monocytes % 11.3; Neutrophils % 40.9; Platelet Count 253 x1000/uL (130-400); RBC 4.54 m/cumm (4.00-5.20); RBC Distribution Width 14.6 % (11.7-14.6); White Blood Cell Count 3.53 k/cumm (4.4-10.8)
[2018-08-15 13:17] LABS: WBC 0-2 HPF (0-5)
[2018-08-15 13:18] LABS: Bacteria Few HPF (Negative); C & S Indicated? No; Crystals Negative HPF (Negative); Epithelial Cells Few HPF (Negative); Mucus Negative (Negative); RBC >50 (0-2)
[2018-08-15 13:20] LABS: INR 0.9 (0.9-1.1); PTT Activated 23.6 sec (21.0-31.4); Prothrombin Time 9.2 sec (9.3-11.0)
[2018-08-15 13:23] LABS: ALT 26 U/L (12-78); AST 25 U/L (15-37); Albumin 3.1 g/dL (3.4-5.0); Alkaline Phosphatase 76 U/L (46-116); Anion Gap 10.3 mmol/L (3-11); BUN 11 mg/dL (7-18); Bilirubin, Total 0.3 mg/dL (0.2-1.0); CO2 24.7 mmol/L (21.0-32.0); CREATININE 0.92 mg/dL (0.55-1.02); Calcium 8.3 mg/dL (8.5-10.1); Chloride 106 mmol/L (98-107); Glucose 89 mg/dL (70-100); Potassium 3.5 mmol/L (3.5-5.1); Sodium 141 mmol/L (136-145); Total Protein 7.4 g/dL (6.4-8.2)
[2018-08-15 13:24] LABS: Diff Comment Diff Reviewed; RBC Morphology Normal
[2018-08-15 16:36] VITALS: BP 141/82; PULSE 86; RESP 16; TEMP 37; O2SAT 99
== END 2018-08-15 16:37 | disposition home or self-care (01) ==
PROVIDERS: Emergency Provider Physician Assistant; PCP Nurse Practitioner Family
DX: N93.9 Abnormal uterine and vaginal bleeding, unspecified (principal)
CPT/HCPCS: 36415; 80053; 99283; 81003; 81015; 85025; 85610; 85730

== ENCOUNTER 2019-07-08 19:59 | Outpatient (REF) | payer BC, SELFPAY ==
[2019-07-08 21:02] LABS: ALT 29 U/L (14-59); AST 18 U/L (15-37); Albumin 3.8 g/dL (3.4-5.0); Alkaline Phosphatase 79 U/L (46-116); Anion Gap 8.7 mmol/L (3-11); BUN 19 mg/dL (7-18); Bilirubin, Total 0.4 mg/dL (0.2-1.0); CO2 25.3 mmol/L (21.0-32.0); CREATININE 0.93 mg/dL (0.55-1.02); Calcium 8.8 mg/dL (8.5-10.1); Chloride 100 mmol/L (98-107); Glucose 102 mg/dL (74-106); Lipase 115 U/L (73-393); Magnesium 2.1 mg/dL (1.8-2.4); Potassium 4.2 mmol/L (3.5-5.1); Sodium 134 mmol/L (136-145); Total Protein 7.4 g/dL (6.4-8.2)
[2019-07-08 21:05] LABS: Abs Immature Grans 0.03 k/cumm (0.0-0.09); Absolute Basophil Count 0.02 k/cumm (0.0-0.2); Absolute Eosinophil Count 0.21 k/cumm (0.0-0.7); Absolute Lymphocyte Count 1.52 k/cumm (1.2-3.4); Absolute Monocyte Count 0.48 k/cumm (0.11-0.7); Absolute Neutrophil Count 4.72 k/cumm (1.2-6.7); Basophils % 0.3; HCT 41.4 % (36.0-46.0); HGB 13.9 g/dL (12.0-15.5); Immature Grans % 0.4 %; Lymphocytes % 21.8; Mean Corp. HGB Concentration 33.6 g/dL (32.0-36.0); Mean Corpuscular Hemoglobin 31.7 pg (27.0-33.0); Mean Corpuscular Volume 94.5 fL (80-95); Monocytes % 6.9; Neutrophils % 67.6; Platelet Count 336 x1000/uL (130-400); RBC 4.38 m/cumm (4.00-5.20); RBC Distribution Width 15.6 % (11.7-14.6); White Blood Cell Count 6.98 k/cumm (4.4-10.8)
== END 2019-07-08 20:19 ==
LOC: LBN 19:59
PROVIDERS: PCP Nurse Practitioner Family; Visit Provider Nurse Practitioner Family
DX: R10.9 Unspecified abdominal pain (principal)
CPT/HCPCS: 80053; 83690; 83735; 85025

== ENCOUNTER 2019-11-07 22:03 | Outpatient (REF) | payer BC, SELFPAY | END 2019-11-07 22:23 | LOC: LBN 22:03 | PROVIDERS: PCP Nurse Practitioner Family; Visit Provider Nurse Practitioner Family | DX: N76.0 Acute vaginitis (principal); N39.0 Urinary tract infection, site not specified | CPT/HCPCS: 87086; 87480; 87510; 87660 ==

== ENCOUNTER 2019-12-25 22:23 | Outpatient (REF) | payer BC, SELFPAY ==
[2019-12-25 22:31] LABS: Bilirubin Negative (Negative); Blood Negative (Negative); Clarity Cloudy (Clear); Glucose Negative (Negative); Ketones Negative (Negative); Leukocyte Esterase Negative (Negative); Nitrite Negative (Negative); Specific Gravity >= 1.030 (1.005-1.025); Urobilinogen 0.2 EU/dL (Up TO 0.2); pH 6.5 (5-8)
[2019-12-25 22:52] LABS: C & S Indicated? C&S Done As Ordered; Crystals Many Amorphous HPF (Negative)
== END 2019-12-25 22:43 ==
LOC: LBN 22:23
PROVIDERS: PCP Nurse Practitioner Family; Visit Provider Physician Assistant
DX: R30.0 Dysuria (principal)
CPT/HCPCS: 81003; 81015; 87086

== ENCOUNTER 2020-03-13 09:06 | Outpatient (CLI) | payer OTHER, SELFPAY ==
[2020-03-14 16:39] LABS: COVID-19 RT-PCR Result NEGATIVE (Negative)
== END 2020-03-13 09:26 ==
PROVIDERS: PCP Nurse Practitioner Family; Visit Provider Nurse Practitioner Family
DX: R51.9 Headache, unspecified (principal); J34.89 Other specified disorders of nose and nasal sinuses
CPT/HCPCS: U0003

== ENCOUNTER 2020-05-19 10:06 | Outpatient (CLI) | payer OTHER, SELFPAY ==
[2020-05-20 14:01] LABS: COVID-19 RT-PCR UVMMC Result Negative (Negative)
== END 2020-05-19 10:07 | disposition home or self-care (01) ==
LOC: LBO 10:06
PROVIDERS: PCP Nurse Practitioner Family; Visit Provider Nurse Practitioner Family
DX: Z20.822 Contact with and (suspected) exposure to COVID-19 (principal)
CPT/HCPCS: U0003

== ENCOUNTER 2020-06-24 13:16 | Outpatient (REF) | payer OTHER, SELFPAY ==
[2020-06-25 10:59] LABS: Campylobacter PCR Negative (Negative); Salmonella PCR Negative (Negative); Shiga Toxin PCR Negative (Negative); Shigella/Enteroinvasive Ecoli Negative (Negative)
== END 2020-06-24 13:17 | disposition home or self-care (01) ==
LOC: LBN 13:16
PROVIDERS: Physician Assistant; PCP Nurse Practitioner Family; Visit Provider Family Medicine
DX: R19.7 Diarrhea, unspecified (principal)
CPT/HCPCS: 87505

== ENCOUNTER 2020-09-24 16:03 | Outpatient (REF) | payer OTHER, SELFPAY ==
[2020-09-24 17:00] LABS: Hemoglobin A1C 5.4 % (<5.7)
[2020-09-24 17:02] LABS: Anion Gap 12.3 mmol/L (3-11); BUN 10 mg/dL (7-18); CO2 23.7 mmol/L (21.0-32.0); CREATININE 0.9 mg/dL (0.55-1.02); Calcium 8.7 mg/dL (8.5-10.1); Calculated LDL 95 mg/dL (<100); Chloride 105 mmol/L (98-107); Cholesterol 166 mg/dL (<200); Glucose 92 mg/dL (74-106); HDL Cholesterol 52 mg/dL (40-60); Potassium 4.2 mmol/L (3.5-5.1); Sodium 141 mmol/L (136-145); Triglyceride 99 mg/dL (<150)
== END 2020-09-24 16:04 | disposition home or self-care (01) ==
LOC: LBN 16:03
PROVIDERS: PCP Nurse Practitioner Family; Visit Provider Nurse Practitioner Family
DX: Z00.00 Encounter for general adult medical examination without abnormal findings (principal); Z13.220 Encounter for screening for lipoid disorders; Z13.228 Encounter for screening for other metabolic disorders; Z13.1 Encounter for screening for diabetes mellitus
CPT/HCPCS: 80048; 80061; 83036

== ENCOUNTER 2021-01-05 08:03 | Emergency (ER) | payer OTHER, SELFPAY ==
[2021-01-05 08:08] VITALS: BP 157/99; PULSE 102; RESP 16; TEMP 36.7; O2SAT 98
--- NOTE | 2021-01-05 08:10 | ED.GENADUL_ITS ---
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 Details Clinical Impression: Pruritus, Edema Primary Care Provider: Erica Mullins ED Provider: Ady Calvin Home Meds and New Rx's Prescriptions: New hydroxyzine HCl 25 mg tablet 25 mg PO QID PRN (Reason: itching) Qty: 14 RF: 0 Continued omeprazole 20 mg capsule,delayed release(DR/EC) 20 mg PO DAILY PRN (Reason: heartburn) Qty: 90 RF: 4 albuterol sulfate [Ventolin HFA] 90 mcg/actuation HFA aerosol inhaler 2 puff Inhalation Q6H PRN (Reason: shortness of breath or wheezing) Qty: 18 RF: 4 sertraline 50 mg tablet 50 mg PO DAILY Qty: 90 RF: 4 levonorgestrel-ethinyl estrad [[place]] 0.15-0.03 mg tablet 1 tab PO DAILY Qty: 84 RF: 4 Discontinued minocycline 100 mg capsule 100 mg PO DAILY RF: 0 Discharge Instructions Instructions: Itchy Skin (ED), Edema (ED) Additional Instructions: Your laboratory values reveal elevated inflammatory markers but otherwise unremarkable for obvious emergent process. Both your RINKU and tick panel are pending. Discontinue minocycline and add on hydroxyzine for symptomatic control as directed. [id number] Tylenol and/or Motrin as directed for discomfort as well. Please watch for new or worsening symptoms and return to the ER for any concerns. I have spoken with your primary care office, they are aware of your ER visit today and work-up including pending lab. They should be reaching out to you in the next 36 hours up an outpatient appointment but if you do not hear from them and please call them. As we discussed, I do have some concern this could be an autoimmune disorder you may need further evaluation and/or testing for more definitive answers. Medical Decision Making This is a 30-year-old female who reports itching, swelling, rash that began yesterday, rash has resolved completely although the itching and swelling seem to be worse. She feels swollen and tight and body wide. Denies recent illness, fell yesterday but denies any obvious trauma. Patient has never had any symptoms like this prior. Has not had any medication for her symptoms. Clinically I cannot appreciate any mild swelling to bilateral hands but otherwise her exam is quite unremarkable, I cannot appreciate any other obvious subtle edema or rash. After looking up the side effects of minocycline, it certainly sounds as though her symptoms could be secondary to this. However, question infectious process, inflammatory process, lupus, autoimmune, etc. Given her swelling, I will obtain a BNP although clinically low suspicion for CHF. No signs of angioedema Laboratory values reveal an ESR of 38, CRP of 2.37, BNP 48, otherwise unremarkable. Both tick and Lyme panel as well as RINKU are pending. I was able to discuss the case with the patient's primary care office, Dr. Todd, covering for her PCP. Plan is to discontinue the minocycline, they will follow the tickborne panel as well as the RINKU, and reach out to her in the next couple of days of her outpatient appointment. Patient understands that she may need further assessment through rheumatology, hematology, etc. if her symptoms were to persist. In the meantime she will continue her minocycline. I will also give her a short-term prescription of Atarax. Standard discharge and return precautions provided. Patient comfortable this plan and has no additional questions or concerns This documentation was generated using [employer] system, please disregard any oddities of phrase or misspellings. Medical Records Medical records reviewed: Yes I reviewed the patient's medical records. Lab Data Lab results reviewed: Yes I reviewed the patient's lab results. Labs: Laboratory Tests Range/Units 01/05/21 01/05/21 01/05/21 09:00 09:00 09:00 WBC (4.4-10.8) 10^3/uL 7.13 RBC (3.93-5.22) 10^6/uL 4.75 Hgb (11.2-15.7) g/dL 14.3 Hct (36.0-46.0) % 42.6 MCV (80-95) fL 89.7 MCH (27.0-33.0) pg 30.1 MCHC (32.0-36.0) % 33.6 RDW (11.7-14.6) % 13.7 Plt Count (130-400) 10^3/uL 319 MPV (8.0-11.0) fL 9.5 Immature Gran % 0.3 Neutrophils % 78.5 Lymphocytes % 11.4 Monocytes % 5.9 Eosinophils % 3.2 Basophils % 0.7 Nucleated RBC % % 0 Absolute Neutrophils (1.2-6.7) 10^3/uL 5.60 Absolute Lymphocytes (1.2-3.4) 10^3/uL 0.81 L Absolute Monocytes (0.1-0.8) 10^3/uL 0.42 Absolute Eosinophils (0.0-0.7) 10^3/uL 0.23 Absolute Basophils (0.0-0.2) 10^3/uL 0.05 ESR (0-20) mm/hr 38 H PT (9.3-11.0) sec INR (0.9-1.1) APTT (21.0-27.5) sec Sodium (136-145) mmol/L 140 Potassium (3.5-5.1) mmol/L 3.9 Chloride (98-107) mmol/L 106 Carbon Dioxide (21.0-32.0) mmol/L 22.9 Anion Gap (3-11) mmol/L 11.1 H BUN (7-18) mg/dL 12 Creatinine (0.55-1.02) mg/dL 0.8 Estimated GFR/1.73 m2 (mL/min/1.73m2) >= 60.00 Glucose (74-106) mg/dL 92 Calcium (8.5-10.1) mg/dL 8.6 Total Bilirubin (0.2-1.0) mg/dL 0.6 AST (15-37) U/L 22 ALT (14-59) U/L 26 Alkaline Phosphatase (46-116) U/L 67 C-Reactive Protein (0.0-0.3) mg/dL 2.37 H NT-Pro-B Natriuret Pep (<300) pg/mL 48 Total Protein (6.4-8.2) g/dL 7.9 Albumin (3.4-5.0) g/dL 3.6 Lipase (73-393) U/L 87 Urine Color (Yellow) Urine Clarity (Clear) Urine pH (5-8) Ur Specific [place] (1.005-1.025) Urine Protein (Negative) mg/dL Urine Ketones (Negative) mg/dL Urine Blood (Negative) Urine Nitrite (Negative) Urine Bilirubin (Negative) Urine Urobilinogen (Up TO 0.2) EU/dL Ur Leukocyte Esterase (Negative) Urine RBC (0-2) HPF Urine WBC (0-5) HPF Ur Epithelial Cells (Negative) HPF Urine Crystals (Negative) HPF Urine Bacteria (Negative) HPF Urine Casts (Negative) LPF Urine Mucus (Negative) Ur Culture Indicated? Urine Glucose (Negative) mg/dL Range/Units 01/05/21 01/05/21 09:00 09:15 WBC (4.4-10.8) 10^3/uL RBC (3.93-5.22) 10^6/uL Hgb (11.2-15.7) g/dL Hct (36.0-46.0) % MCV (80-95) fL MCH (27.0-33.0) pg MCHC (32.0-36.0) % RDW (11.7-14.6) % Plt Count (130-400) 10^3/uL MPV (8.0-11.0) fL Immature Gran % Neutrophils % Lymphocytes % Monocytes % Eosinophils % Basophils % Nucleated RBC % % Absolute Neutrophils (1.2-6.7) 10^3/uL Absolute Lymphocytes (1.2-3.4) 10^3/uL Absolute Monocytes (0.1-0.8) 10^3/uL Absolute Eosinophils (0.0-0.7) 10^3/uL Absolute Basophils (0.0-0.2) 10^3/uL ESR (0-20) mm/hr PT (9.3-11.0) sec 10.1 INR (0.9-1.1) 1.0 APTT (21.0-27.5) sec 23.5 Sodium (136-145) mmol/L Potassium (3.5-5.1) mmol/L Chloride (98-107) mmol/L Carbon Dioxide (21.0-32.0) mmol/L Anion Gap (3-11) mmol/L BUN (7-18) mg/dL Creatinine (0.55-1.02) mg/dL Estimated GFR/1.73 m2 (mL/min/1.73m2) Glucose (74-106) mg/dL Calcium (8.5-10.1) mg/dL Total Bilirubin (0.2-1.0) mg/dL AST (15-37) U/L ALT (14-59) U/L Alkaline Phosphatase (46-116) U/L C-Reactive Protein (0.0-0.3) mg/dL NT-Pro-B Natriuret Pep (<300) pg/mL Total Protein (6.4-8.2) g/dL Albumin (3.4-5.0) g/dL Lipase (73-393) U/L Urine Color (Yellow) Yellow Urine Clarity (Clear) Clear Urine pH (5-8) 6.0 Ur Specific [place] (1.005-1.025) >= 1.030 H Urine Protein (Negative) mg/dL Negative Urine Ketones (Negative) mg/dL Negative Urine Blood (Negative) Trace-intact H Urine Nitrite (Negative) Negative Urine Bilirubin (Negative) Negative Urine Urobilinogen (Up TO 0.2) EU/dL 0.2 Ur Leukocyte Esterase (Negative) Negative Urine RBC (0-2) HPF 0-2 Urine WBC (0-5) HPF Negative Ur Epithelial Cells (Negative) HPF Moderate Urine Crystals (Negative) HPF Negative Urine Bacteria (Negative) HPF Few Urine Casts (Negative) LPF Negative Urine Mucus (Negative) Negative Ur Culture Indicated? No/Sq. Contamination Urine Glucose (Negative) mg/dL Negative HPI General Mode of arrival: ambulatory . Date/Time Provider Initiated Documentation: 01/05/21 08:08 . Limitations to Documentation: no limitations . Information obtained by: patient . HPI Narrative: This is a 30-year-old female, past medical history that includes ADHD, depression, anxiety, GERD, migraines, presenting to the ER today for evaluation of body wide itching and feeling as though her body is swollen and tight. Patient states that the symptoms began primarily yesterday, but she did trip over her cat and thought that her finger swelling was secondary to an injury, seen by her primary care office and the ring was removed. She states that yesterday her arms looked more red but today she does not notice any rash whatsoever. Today upon awaking she felt as though her entire body felt swollen, all of her fingers were noticeably swollen but she was able to remove her other ring. She reports all of her joints feel tight, especially her knees. Patient denies recent illness or trauma. No recent sick exposures. Denies headache, fever, visual changes, sore throat, chest pain, shortness of breath abdominal pain, nausea or vomiting, change in bowel or brian dder function, numbness, tingling, weakness. Patient states that she began minocycline 1 month ago and this is the only change that she is aware of. She has not taken any medication [id number] for her symptoms. Patient denies any presentation of this prior. She denies any known autoimmune disorders that run in her family. Related Data Home Medications Medication Instructions Recorded Confirmed omeprazole 20 mg capsule,delayed 20 mg PO DAILY PRN #90 cap 10/16/19 01/05/21 release albuterol sulfate 90 mcg/actuation 2 puff INHALATION Q6H PRN #18 g 01/13/20 01/05/21 aerosol inhaler sertraline 50 mg tablet 50 mg PO DAILY #90 tab-cap 06/09/20 01/05/21 levonorgestrel 0.15 mg-ethinyl 1 tab PO DAILY #84 tab 12/09/20 01/05/21 estradiol 0.03 mg tablet hydroxyzine HCl 25 mg PO QID PRN #14 tab 01/05/21 Previous Rx's Medication Instructions Recorded omeprazole 20 mg capsule,delayed 20 mg PO DAILY PRN #90 cap 10/16/19 release albuterol sulfate 90 mcg/actuation 2 puff INHALATION Q6H PRN #18 g 01/13/20 aerosol inhaler sertraline 50 mg tablet 50 mg PO DAILY #90 tab-cap 06/09/20 levonorgestrel 0.15 mg-ethinyl 1 tab PO DAILY #84 tab 12/09/20 estradiol 0.03 mg tablet hydroxyzine HCl 25 mg PO QID PRN #14 tab 01/05/21 Allergies Allergy/AdvReac Type Severity Reaction Status Date / Time gluten Allergy Verified 01/05/21 08:13 oxybutynin AdvReac Verified 01/05/21 08:13 General ARIK: 3 Review of Systems Constitutional Constitutional: Denies fever(s), Denies headache(s) and Denies weakness ENT Ears, Nose, Mouth, and Throat: Denies headache(s), Denies neck pain and Denies throat swelling Cardiovascular Cardiovascular: Denies chest pain and Denies dyspnea Respiratory Respiratory: Denies cough and Denies dyspnea Gastrointestinal Gastrointestinal: Denies abdominal pain, Denies nausea and Denies vomiting Musculoskeletal Musculoskeletal: Reports myalgias, Denies neck pain, Denies numbness and Denies tingling Integumentary/Breasts Skin/Breast: Reports rash (Yesterday, resolved now) Neurologic Neurologic: Denies headache(s), Denies numbness, Denies tingling and Denies weakness Allergic/Immunologic Allergic/Immunologic: Denies urticaria and Denies throat swelling FOR[facility]LY [facility] Medical History ADHD (attention deficit hyperactivity disorder), inattentive type Allergic rhinitis Axillary hidradenitis suppurativa Celiac disease Depressive disorder External hemorrhoids Generalized anxiety disorder GERD (gastroesophageal reflux disease) Interstitial cystitis Migraine headache without aura Mild obstructive sleep apnea PSG 10/07/14. Managing with position changes and wt loss Swollen finger (~01/04/21) Surgical History Hx of esophagogastroduodenoscopy (08/09/11) S/P colonoscopy (08/09/11) Family History Mother Asthma Father Hypertension Sister No problems noted. Daughter No problems noted. Maternal Grandfather Heart disease Hypertension Maternal Grandmother Hyperlipidemia Paternal Grandfather , at 85 Prostate cancer Paternal Grandmother Heart disease Hypertension Stroke Depression Social History Smoking/Tobacco Use Status: Former Tobacco Use Quit Date: 02/26/17 Quit status: has quit before Smoking risk assessment performed?: Yes Alcohol Intake: current Alcohol Intake frequency: a few times a month Alcohol type: beer Drug use: Never Substance use type: does not use Caregiver/Support person: No Household members: children Housing: house Communication Needs: None Do you need help understanding health information?: Always current occupation: [employer] Pets and animals: Yes Pets and animals: cat(s) Sexually active: Yes Do you think of yourself as: straight/heterosexual Current gender identity: female What is your relationship status?: never How often do you talk on the phone with friends or family?: three or more times per week How often do you get together with friends or relatives?: three or more times per week How often do you attend lutheran or spiritism services?: decline to answer Do you belong to any clubs or organized social groups?: no Panel score (0-1 are the most socially isolated patients): 1 Duration: < 15 minutes/day Frequency: 3-4 times per week Katie/Baptist: No preference Special katie needs: No Seatbelt use: always Helmet use: Yes Helmet use: always Drive intox or ride w/intox furniture mover driver: No Water heater temp set <120 deg: No Working smoke detector in home: Yes Fire extinguisher in home: Yes Carbon monox detector in home: Yes Firearms in home: No Do you feel safe at home: Yes Do you feel safe in your relationship?: Yes Victim of physical abuse: No Victim of emotional abuse: No Victim of sexual abuse: No Female Reproductive History Menstrual control method: pills History History 1 Para 1 Hx # Term Pregnancies Multiple births Hx # Pregnancies Ectopic pregnancies AB induced Hx Number of Living Children AB spontaneous Exam Const General: cooperative, healthy appearing, comfortable and no acute distress Orientation: alert, awake and oriented x3 HENMT Head: normal to inspection, normocephalic and atraumatic Face and sinus: normal facial exam Mouth: moist mucous membranes Throat: posterior oropharynx normal Eyes General: appearance normal, both eyes and all related structures Conjunctivae: conjunctivae normal Neck Neck: normal visual inspection, full ROM, trachea midline and supple Chest Chest: normal inspection of the chest and normal palpation of entire chest wall Resp Effort & Inspection: normal respiratory effort and able to speak in complete sentences Auscultation: clear to auscultation bilaterally Cardio Rate: regular rate Rhythm: regular rhythm GI Inspection: normal to inspection and obesity Palpation: soft, not firm, no guarding, no pulsatile masses and nontender Back/Spine/Pelvis Back: No back tenderness Skin General skin exam: no rashes or lesions noted Neuro General: patient alert, patient awake, moves all extremities and no focal motor deficits Cognition: normal cognition Speech: speech normal Gait: normal gait Motor: muscle tone normal throughout Sensory Exam: no sensory deficits noted Extrem General: full ROM, capillary refill normal and no calf tenderness Other: Patient has subtle edema over her hands and 10 digits. There is no erythema or warmth. Full range of motion. No evidence of trismus. Patient specifically states that her knees are bothering her the most although on exam they are unremarkable, no obvious swelling, erythema, warmth, point tenderness. Patient is able to bear weight. Neuro, vascular, tendon intact. Normal pedal pulse and capillary refill. Psych Appearance: grossly normal Mental Status: mental status grossly normal
[2021-01-05 09:20] LABS: Abs Immature Grans 0.02 10^3/uL (0.0-0.06); Absolute Basophil Count 0.05 10^3/uL (0.0-0.2); Absolute Eosinophil Count 0.23 10^3/uL (0.0-0.7); Absolute Lymphocyte Count 0.81 10^3/uL (1.2-3.4); Absolute Monocyte Count 0.42 10^3/uL (0.1-0.8); Basophils % 0.7; Eosinophils % 3.2; HCT 42.6 % (36.0-46.0); HGB 14.3 g/dL (11.2-15.7); Immature Grans % 0.3; Lymphocytes % 11.4; MCH 30.1 pg (27.0-33.0); MCHC 33.6 % (32.0-36.0); MCV 89.7 fL (80-95); MPV 9.5 fL (8.0-11.0); Monocytes % 5.9; Neutrophils % 78.5; Nucleated RBC 0 %; Platelet Count 319 10^3/uL (130-400); RBC 4.75 10^6/uL (3.93-5.22); RDW 13.7 % (11.7-14.6); RDW-SD 45.1 fL; WBC 7.13 10^3/uL (4.4-10.8)
[2021-01-05 09:23] VITALS: RESP 16
[2021-01-05 09:31] LABS: Clarity Clear (Clear); Specific Gravity >= 1.030 (1.005-1.025)
[2021-01-05 09:32] LABS: Bilirubin Negative (Negative); Blood Trace-intact (Negative); Glucose Negative (Negative); Ketones Negative (Negative); Leukocyte Esterase Negative (Negative); Nitrite Negative (Negative); Urobilinogen 0.2 EU/dL (Up TO 0.2)
[2021-01-05 09:37] LABS: Bacteria Few HPF (Negative); C & S Indicated? No/Sq. Contamination; Casts Negative LPF (Negative); Crystals Negative HPF (Negative); Epithelial Cells Moderate HPF (Negative); Mucus Negative (Negative); RBC 0-2 HPF (0-2); WBC Negative HPF (0-5)
[2021-01-05 09:41] LABS: PTT Activated 23.5 sec (21.0-27.5); Prothrombin Time 10.1 sec (9.3-11.0)
[2021-01-05 09:42] LABS: BUN 12 mg/dL (7-18); CREATININE 0.8 mg/dL (0.55-1.02); Calcium 8.6 mg/dL (8.5-10.1); Glucose 92 mg/dL (74-106)
[2021-01-05 09:43] LABS: ALT 26 U/L (14-59); AST 22 U/L (15-37); Albumin 3.6 g/dL (3.4-5.0); Alkaline Phosphatase 67 U/L (46-116); Anion Gap 11.1 mmol/L (3-11); Bilirubin, Total 0.6 mg/dL (0.2-1.0); C-Reactive Protein 2.37 mg/dL (0.0-0.3); CO2 22.9 mmol/L (21.0-32.0); Chloride 106 mmol/L (98-107); Potassium 3.9 mmol/L (3.5-5.1); Sodium 140 mmol/L (136-145); Total Protein 7.9 g/dL (6.4-8.2)
[2021-01-05 09:44] LABS: Lipase 87 U/L (73-393); NT-proBNP 48 pg/mL (<300)
[2021-01-05 10:08] LABS: ESR 38 mm/hr (0-20)
[2021-01-05 10:12] VITALS: BP 161/93; PULSE 79; RESP 14; TEMP 36.7; O2SAT 98
[2021-01-06 11:08] LABS: Lyme Ab w Rflx to Lyme Confirm Negative (Negative)
[2021-01-06 14:53] LABS: ANA Interpretation Positive (Negative); ANA Titer Pattern 1:640 Nucleolar
[2021-01-07 14:25] LABS: Anaplasma phagocytophilum Negative (Negative); B. miyamotoi PCR Negative (Negative); Babesia divergens/MO-1 Negative (Negative); Babesia duncani Negative (Negative); Babesia microti Negative (Negative); Ehrlichia chaffeensis Negative (Negative); Ehrlichia ewingii/canis Negative (Negative); Ehrlichia muris eauclairensis Negative (Negative)
== END 2021-01-05 10:53 | disposition home or self-care (01) ==
PROVIDERS: Emergency Provider Physician Assistant; PCP Nurse Practitioner Family
DX: L29.9 Pruritus, unspecified (principal); R60.9 Edema, unspecified
CPT/HCPCS: 36415; 80053; 81025; 83690; 85652; 87798; 99283; 81003; 81015; 83880; 85025; 85610; 85730; 86038; 86140; 86618

== ENCOUNTER 2021-01-07 17:46 | Outpatient (REF) | payer OTHER, SELFPAY ==
[2021-01-08 17:23] LABS: Rheumatoid Factor <8.6 IU/mL (<12.0)
== END 2021-01-07 17:47 | disposition home or self-care (01) ==
LOC: LBN 17:46
PROVIDERS: PCP Nurse Practitioner Family; Visit Provider Nurse Practitioner Family
DX: M25.562 Pain in left knee (principal); M25.511 Pain in right shoulder; M25.59 Pain in other specified joint; F41.1 Generalized anxiety disorder
CPT/HCPCS: 84443; 86431

== ENCOUNTER 2021-02-15 21:40 | Outpatient (REF) | payer OTHER, SELFPAY ==
[2021-02-15 22:14] LABS: ESR 46 mm/hr (0-20)
[2021-02-16 20:03] LABS: CRP, High Sensitivity >15.00 mg/L (See Note)
[2021-02-18 13:13] LABS: dsDNA Ab, IgG <12.3 IU/mL (<30.0)
== END 2021-02-15 21:41 | disposition home or self-care (01) ==
LOC: NCHCN 21:40
PROVIDERS: PCP Nurse Practitioner Family; Visit Provider Nurse Practitioner Family
DX: M25.512 Pain in left shoulder (principal); M25.542 Pain in joints of left hand
CPT/HCPCS: 85652; 86141; 86225

== ENCOUNTER 2021-10-08 11:15 | Outpatient (REF) | payer OTHER, SELFPAY ==
--- NOTE | 2021-10-08 09:45 | PAPFT_PTH ---
PATIENT: Clarissa Yusuf LOC: [facility] U#:[id number] AGE/SX: 31/F ROOM: RE10/08/[address]: Rancho Barry DNP : 1990 BED: DIS: 10/08/2021 SPEC #: [id number] RECD: 10/08/21 13:01 STATUS: ROBINA REDa #: [id number] SEPIDEH: 10/08/21 09:[address]: Rancho Fischer DEPT: [facility] Cytology RECD BY: Aleta Thayer ENTERED: 10/08/21 13:01 SP TYPE: PAPFT BERNARD DR: Erica Mullins, ASSISTANT TO THE VICE PRESIDENT Tissues: 1 - CX/ENDOCX FOR PAP SMEARS Procedures: PAP THIN PREP/UVM Screening HPV DNA PROBE Comments: [id number]
== END 2021-10-08 11:16 | disposition home or self-care (01) ==
LOC: LBN 11:15
PROVIDERS: PCP Nurse Practitioner Family; Visit Provider Nurse Practitioner Family
DX: Z12.4 Encounter for screening for malignant neoplasm of cervix (principal); Z11.51 Encounter for screening for human papillomavirus (HPV)
CPT/HCPCS: 88142; 87624

== ENCOUNTER 2022-01-03 11:59 | Outpatient (CLI) | payer OTHER, SELFPAY ==
--- NOTE | 2022-01-03 11:45 | RT.EKG_ITS ---
APPROVED REPORT Exam: Resting ECG Reason for Exam: chest discomfort Patient Location: O HR:86 bpm ECG Measurements Heart Rate 86 AXIS CA 141 P 62 QRSd 88 QRS 45 QT 367 T 22 QTc 439 Conclusion Sinus rhythm...normal P axis, V-rate 50- 99 Right atrial abnormality
== END 2022-01-03 12:00 | disposition home or self-care (01) ==
LOC: DI.CM 12:00
PROVIDERS: PCP Nurse Practitioner Family; Visit Provider Physician Assistant
DX: R07.89 Other chest pain (principal)
CPT/HCPCS: 93010

== ENCOUNTER → 2022-01-03 13:33 | Outpatient (CLI) | payer OTHER, SELFPAY ==
--- NOTE | 2022-01-03 13:15 | DI.RAD_ITS ---
Exam(s) XR CHEST 2V PA LATERAL EXAM: XR CHEST 2V PA LATERAL CLINICAL HISTORY: CHEST PRESSURE OTHER CHEST PAIN--R07.89 TECHNIQUE: 2D digital imaging was performed of the chest. Two images were obtained. PA and lateral views were obtained. COMPARISON: No priors for comparison. FINDINGS: MEDIASTINUM: Normal. HEART: Normal. PULMONARY VASCULATURE: Normal. LUNGS: Clear. PLEURAL SPACE: No pleural effusion or pneumothorax. BONE:Within normal limits for the patient's age. OTHER FINDINGS:Normal. IMPRESSION: No acute pulmonary findings. DATA REPOSITORY: RADIATION DOSE DELIVERED:
== END ==
PROVIDERS: PCP Nurse Practitioner Family; Visit Provider Physician Assistant
DX: R07.89 Other chest pain (principal)
CPT/HCPCS: 71046

== ENCOUNTER 2022-01-03 14:48 | Outpatient (CLI) | payer OTHER, SELFPAY ==
[2022-01-03 13:39] LABS: Abs Immature Grans 0.01 10^3/uL (0.0-0.06); Absolute Basophil Count 0.05 10^3/uL (0.0-0.2); Absolute Eosinophil Count 0.18 10^3/uL (0.0-0.7); Absolute Lymphocyte Count 1.75 10^3/uL (1.2-3.4); Absolute Monocyte Count 0.42 10^3/uL (0.1-0.8); Absolute Neutrophil Count 5.66 10^3/uL (1.2-6.7); Basophils % 0.6; Eosinophils % 2.2; HGB 14.3 g/dL (11.2-15.7); Immature Grans % 0.1; Lymphocytes % 21.7; MCH 30.2 pg (27.0-33.0); MCHC 33.3 % (32.0-36.0); MCV 91 fL (80-95); MPV 9.2 fL (8.0-11.0); Monocytes % 5.2; Neutrophils % 70.2; Platelet Count 361 10^3/uL (130-400); RBC 4.73 10^6/uL (3.93-5.22); RDW 14.6 % (11.7-14.6); RDW-SD 49.1 fL; WBC 8.07 10^3/uL (4.4-10.8)
[2022-01-03 14:15] LABS: ALT 29 U/L (14-59); AST 24 U/L (15-37); Albumin 3.8 g/dL (3.4-5.0); Alkaline Phosphatase 65 U/L (46-116); Anion Gap 11.9 mmol/L (3-11); BUN 17 mg/dL (7-18); Bilirubin, Total 0.4 mg/dL (0.2-1.0); CO2 23.1 mmol/L (21.0-32.0); CREATININE 0.9 mg/dL (0.55-1.02); Calcium 8.9 mg/dL (8.5-10.1); Chloride 104 mmol/L (98-107); Estimated GFR 87.11 (mL/min/1.73m2); Glucose 84 mg/dL (74-106); Potassium 3.7 mmol/L (3.5-5.1); Sodium 139 mmol/L (136-145); TSH (W/Ref FT4) 2.14 uIU/mL (0.36-3.74); Total Protein 8.2 g/dL (6.4-8.2)
[2022-01-03 14:41] LABS: D-Dimer 431 ng/mlFEU (<500)
== END 2022-01-03 14:49 | disposition home or self-care (01) ==
LOC: LBO 14:49
PROVIDERS: PCP Nurse Practitioner Family; Visit Provider Physician Assistant
DX: R07.89 Other chest pain (principal)
CPT/HCPCS: 36415; 80053; 84443; 85025; 85379

== ENCOUNTER 2022-02-14 14:48 | Outpatient (REF) | payer OTHER, SELFPAY | END 2022-02-14 14:49 | disposition home or self-care (01) | LOC: LBN 14:48 | PROVIDERS: PCP Nurse Practitioner Family; Visit Provider Nurse Practitioner Family | DX: J02.9 Acute pharyngitis, unspecified (principal) | CPT/HCPCS: 87077; 87070 ==

== ENCOUNTER 2022-03-31 01:14 | Outpatient (CLI) | payer OTHER, SELFPAY ==
--- NOTE | 2022-03-31 13:50 | DI.US_ITS ---
APPROVED REPORT EXAM: Comprehensive 2D, Doppler, and color-flow Echocardiogram Patient Location: Out-Patient Audiologist: Shania Smalls RDCS (AE) Indications: EKG abnormality, Fatigue Other Information Study Quality: Adequate Conclusion Normal left ventricular wall thickness and chamber size. Estimated ejection fraction is 60%. Wall m otion is normal Normal right ventricular size and systolic function Both atria are normal in size There is no structural or hemodynamically significant valvular disease Mildly dilated ascending aorta measuring 3.44 cm Wall motion Left Ventricle The left ventricle is normal size. The left ventricular systolic function is normal. The left ventric ular ejection fraction is within the normal range. There is normal left ventricular wall thickness. T here is normal LV segmental wall motion. There is no ventricular septal defect visualized. LVEF is 60 %. Right Ventricle The right ventricle is normal size. The right ventricular systolic function is normal. Atria The left atrium size is normal. The right atrium size is normal. The interatrial septum is intact wit h no evidence for an atrial septal defect. Aortic Valve The aortic valve is normal in structure. Aortic valve is probably trileaflet. There is no aortic valv ular stenosis. No aortic regurgitation is present. Mitral Valve The mitral valve is normal in structure. No evidence of mitral valve stenosis. Trace mitral regurgita tion. Tricuspid Valve The tricuspid valve is normal in structure. There is no tricuspid valve stenosis. Trace tricuspid reg urgitation. Unable to assess PA pressure. Pulmonic Valve The pulmonary valve is normal in structure. There is no pulmonic valvular stenosis. Trace pulmonic re gurgitation. Great Vessels The aortic root is normal in size. The ascending aorta is mildly dilated. Aortic arch is normal in ca liber. IVC is normal in size and collapses >50% with inspiration. Pericardium There is no pericardial effusion. 2D Dimensions IVSD d PLAX 0.81 cm F: 0.6-1.0 LV Vol A2C d MOD 121.2 mL LVPW d PLAX 0.81 cm F: 0.6 - 1.0 LV Vol A4C d MOD 115.0 mL LVID d PLAX 4.90 cm F: 3.8 - 5.2 LA vol/ BSA A2C s A-L 31.1 mL/m2 LVDs 3.05 cm F: 2.2 - 3.5 LA vol/ BSA A4C s A-L 24.6 mL/m2 Ao Root d 2.80 cm F: 2.7 - 3.3 LA Vol/ BSA Biplane s A-L 27.8 mL/m2 RA Area A4C 11.02 cm2 LA Area A4C s MOD 18.96 cm2 RA Vol/ BSA A4C s A-L 11.2 mL/m2 LA Area A2C s MOD 21.18 cm2 Ao Asc Diam d 3.44 cm F: 2.3 - 3.1 LV EF A4C MOD 60.6 % LV EF Teichholz 66.8 % LV EF A2C MOD 59.1 % LVEF (Marte's) 58.82 % F: 54 - 74 LV EF Biplane MOD 58.8 % LV Volume 85.91 mL F: 46 - 106 SV 69.70 mL LV Volume Index 38.69 mL/m2 F: 29 - 61 SV Index 31.37 mL/m2 LV Vol Biplane MOD 118.5 mL FS 37.00 % M-Mode TAPSE 2.98 cm (M/F) >1.7 LV Diastology MV E' medial 0.117 (>0.07 m/s) E/A Ratio 1.2 LV E/e MED 8.25 (<14) MV E Vmax 0.97 (0.4-1.3 m/s) MV E' lateral 0.155 (>0.1 m/s) MV A Vmax 0.80 (0.4-1.3 m/s) LV E/e LAT 6.20 (<14) MV E/A Ratio 1.19 MV E/E' medial 8.26 MV E/E' lateral 6.24 Aortic Valve LVOT Area 3.18 cm2 AoV Area Vmax 2.63 cm2 LVOT Vmax 1.36 m/s AoV Area/ BSA (Vmax) 1.18 cm2/m2 LVOT Mean Vahid. 0.89 m/s ALEYDA Mean Vahid. 2.61 cm2 LVOT Peak Grad 7.4 mmHg ALEYDA Mean Vahid. Index 1.18 cm2/m2 LVOT Mean Grad 3.8 mmHg LVOT VTI 0.291 m LVOT Diam s 2.00 cm AoV Vmax 1.65 m/s Velocity Ratio 0.82 AoV Mean Vahid. 1.09 m/s AoV Peak Grad 10.9 mmHg LVOT SV 92.66 mL AoV Mean Grad 5.5 mmHg AoV VTI 0.329 m AoV Area VTI 2.81 cm2 AoV Area/ BSA (VTI) 1.27 cm/m2 Mitral Valve MV DT 218 (160-240 msec) MV PHT 63 msec MV Area PHT 3.48 cm2 MV VTI 0.250 m MV Area VTI 3.70 (4.0-6.0 cm2) Pulmonary Valve PV Vmax 1.21 (0.5-1.5 m/s) RVOT Peak Gr. 3.21 mmHg PV Peak Grad 5.9 mmHg RVOT Mean Gr. 1.50 mmHg PV Mean Grad 3.2 mmHg RVOT VTI 0.198 m PV VTI 0.265 m RVOT Vmax 0.90 m/s
== END 2022-03-31 01:34 ==
LOC: DI 01:16
PROVIDERS: PCP Nurse Practitioner Family; Visit Provider Nurse Practitioner Family
DX: R94.31 Abnormal electrocardiogram [ECG] [EKG] (principal)
CPT/HCPCS: 93306

== ENCOUNTER 2022-05-02 15:14 | Outpatient (REF) | payer OTHER, SELFPAY | END 2022-05-02 15:15 | disposition home or self-care (01) | LOC: LBN 15:14 | PROVIDERS: PCP Nurse Practitioner Family; Visit Provider Nurse Practitioner Family | DX: J02.9 Acute pharyngitis, unspecified (principal) | CPT/HCPCS: 87070 ==

== ENCOUNTER 2022-07-21 16:16 | Emergency (ER) | payer OTHER, SELFPAY ==
[2022-07-21 16:28] VITALS: BP 118/94; PULSE 109; RESP 18; TEMP 36.7; O2SAT 99
[2022-07-21] MEDS: Normal Saline 1,000 ML 1000 ML IV (18:25)
[2022-07-21 18:26] LABS: Abs Immature Grans 0.02 10^3/uL (0.0-0.06); Absolute Basophil Count 0.03 10^3/uL (0.0-0.2); Absolute Eosinophil Count 0.07 10^3/uL (0.0-0.7); Absolute Lymphocyte Count 1.34 10^3/uL (1.2-3.4); Absolute Monocyte Count 0.48 10^3/uL (0.1-0.8); Basophils % 0.5; Eosinophils % 1.1; HCT 46.2 % (36.0-46.0); HGB 15.6 g/dL (11.2-15.7); Immature Grans % 0.3; Lymphocytes % 20.5; MCHC 33.8 % (32.0-36.0); MCV 89 fL (80-95); MPV 8.8 fL (8.0-11.0); Monocytes % 7.3; Neutrophils % 70.3; Platelet Count 377 10^3/uL (130-400); RDW 14.7 % (11.7-14.6); RDW-SD 48.1 fL; WBC 6.54 10^3/uL (4.4-10.8)
[2022-07-21] MEDS: Pantoprazole 40 MG VIAL IVP (18:33)
[2022-07-21 18:34] LABS: Bilirubin Moderate (Negative); Blood Large (Negative); Clarity Sl Cloudy (Clear); Glucose Negative (Negative); Ketones Trace mg/dL (Negative); Leukocyte Esterase Negative (Negative); Nitrite Negative (Negative); Specific Gravity 1.025 (1.005-1.025); Urobilinogen 0.2 mg/dL (Up to 0.2)
[2022-07-21] MEDS: Ondansetron 4 MG/2 ML VIAL IVP (18:35)
[2022-07-21 18:41] LABS: Bacteria Moderate HPF (Negative); C & S Indicated? Yes; Casts Negative LPF (Negative); Crystals Negative HPF (Negative); Epithelial Cells Few HPF (Negative); Mucus Moderate (Negative)
[2022-07-21 18:53] LABS: Lactate 0.8 mmol/L (0.6-1.4)
[2022-07-21 19:10] LABS: ALT 36 U/L (14-59); AST 29 U/L (15-37); Albumin 3.6 g/dL (3.4-5.0); Alkaline Phosphatase 73 U/L (46-116); Anion Gap 9.5 mmol/L (3-11); BUN 12 mg/dL (7-18); Bilirubin, Total 0.6 mg/dL (0.2-1.0); CO2 24.5 mmol/L (21.0-32.0); Calcium 8.8 mg/dL (8.5-10.1); Chloride 104 mmol/L (98-107); Estimated GFR 76.29 (mL/min/1.73m2); Glucose 89 mg/dL (74-106); Lipase 29 U/L (16-77); Magnesium 2.1 mg/dL (1.8-2.4); Potassium 3.4 mmol/L (3.5-5.1); Sodium 138 mmol/L (136-145); Total Protein 8.1 g/dL (6.4-8.2)
--- NOTE | 2022-07-21 19:23 | ED.GENADUL_ITS ---
Discharge Plan Disposition Patient Disposition: Home Condition: Stable Discharge Details Clinical Impression: Right upper quadrant abdominal mass Primary Care Provider: Erica Mullins ED Provider: Noa Rooney Home Meds and New Rx's Prescriptions: Continued amlodipine 10 mg tablet 10 mg PO DAILY Qty: 90 3RF ondansetron 4 mg tablet,disintegrating 4 mg PO Q6H PRN (Reason: nausea and vomiting) Qty: 7 0RF albuterol sulfate [Ventolin HFA] 90 mcg/actuation HFA aerosol inhaler 2 puff Inhalation Q6H PRN (Reason: shortness of breath or wheezing) Qty: 18 4RF sertraline 50 mg tablet 50 mg PO DAILY Qty: 90 3RF omeprazole 20 mg capsule,delayed release(DR/EC) 20 mg PO DAILY PRN (Reason: heartburn) Qty: 90 3RF levonorgestrel-ethinyl estrad [Saira 28] 0.15-0.03 mg tablet 1 tab PO DAILY Qty: 84 3RF No Action ondansetron 4 mg tablet,disintegrating 4 mg PO DAILY 30 Days Qty: 20 0RF Discharge Instructions Instructions: Abdominal Pain (ED) Additional Instructions: Clear liquids, advance as tolerated to a low fat diet The radiology department will call you for your appointment to have an abdominal ultrasound tomorrow. Referrals: Erica Mullins NP [Primary Care Provider] - Discharge Data Discharge Date/Time-TO BE ENTERED AT DEPARTURE: 07/21/22 19:47 Medical Decision Making <Noa Rooney NP - Last Filed: 07/22/22 11:59> This is a 32-year-old female with no past medical history presents with right upper quadrant pain worse after eating most consistent with biliary colic. Will check routine labs including CMP CBC lipase. Give a liter of normal saline give Zofran for nausea. symptoms improved and labs reviewed and unremarkable. abdominal exam remains unremarkable and vitals stable. no ultrasound available tonight, is stable to discharge to home and schedule abdominal ultrasound for tomorrow morning. Medical Records Medical records reviewed: Yes I reviewed the patient's medical records. Lab Data Lab results reviewed: Yes I reviewed the patient's lab results. Lab results narrative: 07/21/22 18:12 Urine - Reflex from Ua Urine Culture - Pending Laboratory Tests Range/Units 05/07/21/22 07/21/22 18:12 18:20 18:20 WBC (4.4-10.8) 10^3/uL 6.54 RBC (3.93-5.22) 10^6/uL 5.20 Hgb (11.2-15.7) g/dL 15.6 Hct (36.0-46.0) % 46.2 H MCV (80-95) fL 89 MCH (27.0-33.0) pg 30.0 MCHC (32.0-36.0) % 33.8 RDW (11.7-14.6) % 14.7 H Plt Count (130-400) 10^3/uL 377 MPV (8.0-11.0) fL 8.8 Immature Gran % 0.3 Neutrophils % 70.3 Lymphocytes % 20.5 Monocytes % 7.3 Eosinophils % 1.1 Basophils % 0.5 Nucleated RBC % (0.0-0.3) % 0.0 Absolute Neutrophils (1.2-6.7) 10^3/uL 4.60 Absolute Lymphocytes (1.2-3.4) 10^3/uL 1.34 Absolute Monocytes (0.1-0.8) 10^3/uL 0.48 Absolute Eosinophils (0.0-0.7) 10^3/uL 0.07 Absolute Basophils (0.0-0.2) 10^3/uL 0.03 VBG Lactate (0.6-1.4) mmol/L Sodium (136-145) mmol/L 138 Potassium (3.5-5.1) mmol/L 3.4 L Chloride (98-107) mmol/L 104 Carbon Dioxide (21.0-32.0) mmol/L 24.5 Anion Gap (3-11) mmol/L 9.5 BUN (7-18) mg/dL 12 Creatinine (0.55-1.02) mg/dL 1.0 Est GFR (CKD-EPI 2020) (mL/min/1.73m2) 76.29 Glucose (74-106) mg/dL 89 Calcium (8.5-10.1) mg/dL 8.8 Magnesium (1.8-2.4) mg/dL 2.1 Total Bilirubin (0.2-1.0) mg/dL 0.6 AST (15-37) U/L 29 ALT (14-59) U/L 36 Alkaline Phosphatase (46-116) U/L 73 Total Protein (6.4-8.2) g/dL 8.1 Albumin (3.4-5.0) g/dL 3.6 Lipase (16-77) U/L 29 Urine Color (Yellow) Yellow Urine Clarity (Clear) Sl Cloudy Urine pH (5-8) 6.0 Ur Specific [place] (1.005-1.025) 1.025 Urine Protein (Negative) mg/dL 100 H Urine Ketones (Negative) mg/dL Trace H Urine Blood (Negative) Large H Urine Nitrite (Negative) Negative Urine Bilirubin (Negative) Moderate H Urine Urobilinogen (Up to 0.2) mg/dL 0.2 Ur Leukocyte Esterase (Negative) Negative Urine RBC (0-2) HPF 10-20 H Urine WBC (0-5) HPF 5-10 Ur Epithelial Cells (Negative) HPF Few Urine Crystals (Negative) HPF Negative Urine Bacteria (Negative) HPF Moderate Urine Casts (Negative) LPF Negative Urine Mucus (Negative) Moderate Ur Culture Indicated? Yes Urine Glucose (Negative) mg/dL Negative Range/Units 07/21/22 18:48 WBC (4.4-10.8) 10^3/uL RBC (3.93-5.22) 10^6/uL Hgb (11.2-15.7) g/dL Hct (36.0-46.0) % MCV (80-95) fL MCH (27.0-33.0) pg MCHC (32.0-36.0) % RDW (11.7-14.6) % Plt Count (130-400) 10^3/uL MPV (8.0-11.0) fL Immature Gran % Neutrophils % Lymphocytes % Monocytes % Eosinophils % Basophils % Nucleated RBC % (0.0-0.3) % Absolute Neutrophils (1.2-6.7) 10^3/uL Absolute Lymphocytes (1.2-3.4) 10^3/uL Absolute Monocytes (0.1-0.8) 10^3/uL Absolute Eosinophils (0.0-0.7) 10^3/uL Absolute Basophils (0.0-0.2) 10^3/uL VBG Lactate (0.6-1.4) mmol/L 0.8 Sodium (136-145) mmol/L Potassium (3.5-5.1) mmol/L Chloride (98-107) mmol/L Carbon Dioxide (21.0-32.0) mmol/L Anion Gap (3-11) mmol/L BUN (7-18) mg/dL Creatinine (0.55-1.02) mg/dL Est GFR (CKD-EPI 2020) (mL/min/1.73m2) Glucose (74-106) mg/dL Calcium (8.5-10.1) mg/dL Magnesium (1.8-2.4) mg/dL Total Bilirubin (0.2-1.0) mg/dL AST (15-37) U/L ALT (14-59) U/L Alkaline Phosphatase (46-116) U/L Total Protein (6.4-8.2) g/dL Albumin (3.4-5.0) g/dL Lipase (16-77) U/L Urine Color (Yellow) Urine Clarity (Clear) Urine pH (5-8) Ur Specific [place] (1.005-1.025) Urine Protein (Negative) mg/dL Urine Ketones (Negative) mg/dL Urine Blood (Negative) Urine Nitrite (Negative) Urine Bilirubin (Negative) Urine Urobilinogen (Up to 0.2) mg/dL Ur Leukocyte Esterase (Negative) Urine RBC (0-2) HPF Urine WBC (0-5) HPF Ur Epithelial Cells (Negative) HPF Urine Crystals (Negative) HPF Urine Bacteria (Negative) HPF Urine Casts (Negative) LPF Urine Mucus (Negative) Ur Culture Indicated? Urine Glucose (Negative) mg/dL <Alpesh Leyva MD - Last Filed: 08/03/22 17:28> Note: I did not evaluate this patient. The patient was seen, evaluated, treated and dispositioned independently by CALLIE Rooney. HPI <Noa Rooney NP - Last Filed: 07/22/22 11:59> General Mode of arrival: ambulatory . Date/Time Provider Initiated Documentation: 07/21/22 17:48 . Limitations to Documentation: no limitations . Information obtained by: patient . HPI Narrative: This is a 32-year-old female patient with history of right upper quadrant pain nausea vomiting. She reports her symptoms are worse after eating. She presented to her primary care provider's office and was referred here for further evaluation. She has had no fevers no chills she has had no diarrhea or bloody stool or vomitus. Related Data Home Medications Medication Instructions Recorded Confirmed albuterol sulfate 90 mcg/actuation 2 puff inhalation Q6H PRN 01/13/20 08/03/22 aerosol inhaler (Ventolin HFA) shortness of breath or wheezing #18 grams amlodipine 10 mg tablet 10 mg PO DAILY #90 tabs 01/05/22 08/03/22 ondansetron 4 mg disintegrating 4 mg PO Q6H PRN nausea and 05/02/22 08/03/22 tablet vomiting #7 tabs omeprazole 20 mg capsule,delayed 20 mg PO DAILY PRN heartburn #90 05/25/22 08/03/22 release caps sertraline 50 mg tablet 50 mg PO DAILY #90 tab-caps 05/25/22 08/03/22 levonorgestrel 0.15 mg-ethinyl 1 tab PO DAILY #84 tabs 06/27/22 08/03/22 estradiol 0.03 mg tablet ([place] 28) ondansetron 4 mg disintegrating 4 mg PO DAILY 30 days #20 tabs 07/22/22 08/03/22 tablet Previous Rx's Medication Instructions Recorded albuterol sulfate 90 mcg/actuation 2 puff inhalation Q6H PRN 01/13/20 aerosol inhaler (Ventolin HFA) shortness of breath or wheezing #18 grams amlodipine 10 mg tablet 10 mg PO DAILY #90 tabs 01/05/22 ondansetron 4 mg disintegrating 4 mg PO Q6H PRN nausea and 05/02/22 tablet vomiting #7 tabs omeprazole 20 mg capsule,delayed 20 mg PO DAILY PRN heartburn #90 05/25/22 release caps sertraline 50 mg tablet 50 mg PO DAILY #90 tab-caps 05/25/22 levonorgestrel 0.15 mg-ethinyl 1 tab PO DAILY #84 tabs 06/27/22 estradiol 0.03 mg tablet (Saira 28) ondansetron 4 mg disintegrating 4 mg PO DAILY 30 days #20 tabs 07/22/22 tablet Allergies Allergy/AdvReac Type Severity Reaction Status Date / Time gluten Allergy Verified 08/03/22 08:38 oxybutynin AdvReac Verified 08/03/22 08:38 General Stated Complaint: Abd Prob ARIK: 3 Review of Systems <Noa Rooney NP - Last Filed: 07/22/22 11:59> All systems reviewed & are unremarkable except as noted in HPI and below Constitutional Constitutional: Reports system reviewed and no additional complaints, except as documented PFSH <Noa Rooney NP - Last Filed: 07/22/22 11:59> All Active Problems (Updated 07/22/22 @ 12:10 by SAROJ Stone) Right upper quadrant abdominal mass (Acute) Nausea vomiting and diarrhea (Acute) Pharyngitis (Acute) EKG abnormality (Acute) Essential hypertension (Chronic) BMI 45.0-49.9, adult (Chronic) Depressive disorder (Chronic) Generalized anxiety disorder (Chronic) Interstitial cystitis (Chronic) Mild obstructive sleep apnea (Chronic) PSG 10/07/14. Managing with position changes and wt loss Contraceptive surveillance (Chronic) Celiac disease (Chronic) External hemorrhoids (Chronic) Axillary hidradenitis suppurativa (Chronic) Medical History ADHD (attention deficit hyperactivity disorder), inattentive type Allergic rhinitis Arthralgia [facility] [place] consulted 2021, secondary to minocycline they suspect. GERD (gastroesophageal reflux disease) Migraine headache without aura Surgical History Hx of esophagogastroduodenoscopy (08/09/11) S/P colonoscopy (08/09/11) Family History Mother Asthma Father Hypertension Sister No problems noted. Daughter No problems noted. Maternal Grandfather Heart disease Hypertension Maternal Grandmother Hyperlipidemia Paternal Grandfather , at 85 Prostate cancer Paternal Grandmother Heart disease Hypertension Stroke Depression Social History Smoking/Tobacco Use Status: Former Tobacco Use tobacco type: cigarettes Quit Date: 10/28/20 Second Hand Exposure: Yes Smoking risk assessment performed?: Yes Alcohol Intake: current Alcohol Intake frequency: a few times a month Alcohol type: beer and wine Drug use: Never Substance use type: does not use Caregiver/Support person: No Household members: children Housing: house Communication Needs: None Do you need help understanding health information?: Rarely current occupation: [employer] Pets and animals: Yes Pets and animals: cat(s) Sexually active: Yes Do you think of yourself as: straight/heterosexual Current gender identity: female What is your relationship status?: never How often do you talk on the phone with friends or family?: twice per week How often do you get together with friends or relatives?: once per week Do you belong to any clubs or organized social groups?: no Panel score (0-1 are the most socially isolated patients): 1 What type of physical activity do you participate in: yoga Duration: < 15 minutes/day Frequency: 1-2 times per week Katie/Uatsdin: No preference Special katie needs: No Seatbelt use: always Helmet use: Yes Helmet use: always 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 Water heater temp set <120 deg: No Working smoke detector in home: Yes Fire extinguisher in home: Yes Carbon monox detector in home: Yes Firearms in home: No Do you feel safe at home: Yes Do you feel safe in your relationship?: Yes Victim of physical abuse: No Victim of emotional abuse: No Victim of sexual abuse: No Female Reproductive History Menstrual control method: pills History History 1 Para 1 Hx # Term Pregnancies Multiple births Hx # Pregnancies Ectopic pregnancies AB induced Hx Number of Living Children AB spontaneous Exam <Noa Rooney NP - Last Filed: 07/22/22 11:59> Const General: cooperative, comfortable and no acute distress Nutritional Appearance: obese Orientation: alert, awake and oriented x3 HENMT Head: normal to inspection, normocephalic and atraumatic Mouth: oral mucosae normal Chest Chest: normal inspection of the chest Resp Effort & Inspection: normal respiratory effort Auscultation: clear to auscultation bilaterally Cardio Rate: regular rate Rhythm: regular rhythm GI Inspection: normal to inspection Palpation: soft, not firm, no guarding and not rigid Auscultation: normal bowel sounds Skin General skin exam: no rashes or lesions noted Neuro General: patient alert, patient awake and patient oriented x3 Cranial Nerves: CN's II-XI intact bilaterally Cognition: normal cognition Speech: speech normal Extrem General: normal to inspection and full ROM Course <Noa Rooney, TONE REGULATOR - Last Filed: 07/22/22 11:59> Vital Signs Vital signs: Vital Signs Temperature 36.7 C 07/21/22 16:28 Pulse 109 H 07/21/22 16:28 Respiratory Rate 18 07/21/22 16:28 Blood Pressure 118/94 H 07/21/22 16:28 Pulse Oximetry 99 07/21/22 16:28 Temperature 36.7 C 07/21/22 16:28 Pulse 109 H 07/21/22 16:28 Respiratory Rate 18 07/21/22 16:28 Respiratory Effort Normal 07/21/22 18:38 Blood Pressure 118/94 H 07/21/22 16:28 Blood Pressure Position Sitting 07/21/22 16:28 Pulse Oximetry 99 07/21/22 16:28 Oxygen Delivery Method Room Air 07/21/22 16:28 Oxygen Flow Rate 0 07/21/22 16:28 Pain Level 4 07/21/22 16:28 Lab/Test Results Lab/Test Results: 07/21/22 18:12 Urine - Reflex from Ua Urine Culture - Pending Laboratory Tests Range/Units 07/21/22 07/21/22 07/21/22 18:12 18:20 18:20 WBC (4.4-10.8) 10^3/uL 6.54 RBC (3.93-5.22) 10^6/uL 5.20 Hgb (11.2-15.7) g/dL 15.6 Hct (36.0-46.0) % 46.2 H MCV (80-95) fL 89 MCH (27.0-33.0) pg 30.0 MCHC (32.0-36.0) % 33.8 RDW (11.7-14.6) % 14.7 H Plt Count (130-400) 10^3/uL 377 MPV (8.0-11.0) fL 8.8 Immature Gran % 0.3 Neutrophils % 70.3 Lymphocytes % 20.5 Monocytes % 7.3 Eosinophils % 1.1 Basophils % 0.5 Nucleated RBC % (0.0-0.3) % 0.0 Absolute Neutrophils (1.2-6.7) 10^3/uL 4.60 Absolute Lymphocytes (1.2-3.4) 10^3/uL 1.34 Absolute Monocytes (0.1-0.8) 10^3/uL 0.48 Absolute Eosinophils (0.0-0.7) 10^3/uL 0.07 Absolute Basophils (0.0-0.2) 10^3/uL 0.03 VBG Lactate (0.6-1.4) mmol/L Sodium (136-145) mmol/L 138 Potassium (3.5-5.1) mmol/L 3.4 L Chloride (98-107) mmol/L 104 Carbon Dioxide (21.0-32.0) mmol/L 24.5 Anion Gap (3-11) mmol/L 9.5 BUN (7-18) mg/dL 12 Creatinine (0.55-1.02) mg/dL 1.0 Est GFR (CKD-EPI 2020) (mL/min/1.73m2) 76.29 Glucose (74-106) mg/dL 89 Calcium (8.5-10.1) mg/dL 8.8 Magnesium (1.8-2.4) mg/dL 2.1 Total Bilirubin (0.2-1.0) mg/dL 0.6 AST (15-37) U/L 29 ALT (14-59) U/L 36 Alkaline Phosphatase (46-116) U/L 73 Total Protein (6.4-8.2) g/dL 8.1 Albumin (3.4-5.0) g/dL 3.6 Lipase (16-77) U/L 29 Urine Color (Yellow) Yellow Urine Clarity (Clear) Sl Cloudy Urine pH (5-8) 6.0 Ur Specific [place] (1.005-1.025) 1.025 Urine Protein (Negative) mg/dL 100 H Urine Ketones (Negative) mg/dL Trace H Urine Blood (Negative) Large H Urine Nitrite (Negative) Negative Urine Bilirubin (Negative) Moderate H Urine Urobilinogen (Up to 0.2) mg/dL 0.2 Ur Leukocyte Esterase (Negative) Negative Urine RBC (0-2) HPF 10-20 H Urine WBC (0-5) HPF 5-10 Ur Epithelial Cells (Negative) HPF Few Urine Crystals (Negative) HPF Negative Urine Bacteria (Negative) HPF Moderate Urine Casts (Negative) LPF Negative Urine Mucus (Negative) Moderate Ur Culture Indicated? Yes Urine Glucose (Negative) mg/dL Negative Range/Units 07/21/22 18:48 WBC (4.4-10.8) 10^3/uL RBC (3.93-5.22) 10^6/uL Hgb (11.2-15.7) g/dL Hct (36.0-46.0) % MCV (80-95) fL MCH (27.0-33.0) pg MCHC (32.0-36.0) % RDW (11.7-14.6) % Plt Count (130-400) 10^3/uL MPV (8.0-11.0) fL Immature Gran % Neutrophils % Lymphocytes % Monocytes % Eosinophils % Basophils % Nucleated RBC % (0.0-0.3) % Absolute Neutrophils (1.2-6.7) 10^3/uL Absolute Lymphocytes (1.2-3.4) 10^3/uL Absolute Monocytes (0.1-0.8) 10^3/uL Absolute Eosinophils (0.0-0.7) 10^3/uL Absolute Basophils (0.0-0.2) 10^3/uL VBG Lactate (0.6-1.4) mmol/L 0.8 Sodium (136-145) mmol/L Potassium (3.5-5.1) mmol/L Chloride (98-107) mmol/L Carbon Dioxide (21.0-32.0) mmol/L Anion Gap (3-11) mmol/L BUN (7-18) mg/dL Creatinine (0.55-1.02) mg/dL Est GFR (CKD-EPI 2020) (mL/min/1.73m2) Glucose (74-106) mg/dL Calcium (8.5-10.1) mg/dL Magnesium (1.8-2.4) mg/dL Total Bilirubin (0.2-1.0) mg/dL AST (15-37) U/L ALT (14-59) U/L Alkaline Phosphatase (46-116) U/L Total Protein (6.4-8.2) g/dL Albumin (3.4-5.0) g/dL Lipase (16-77) U/L Urine Color (Yellow) Urine Clarity (Clear) Urine pH (5-8) Ur Specific [place] (1.005-1.025) Urine Protein (Negative) mg/dL Urine Ketones (Negative) mg/dL Urine Blood (Negative) Urine Nitrite (Negative) Urine Bilirubin (Negative) Urine Urobilinogen (Up to 0.2) mg/dL Ur Leukocyte Esterase (Negative) Urine RBC (0-2) HPF Urine WBC (0-5) HPF Ur Epithelial Cells (Negative) HPF Urine Crystals (Negative) HPF Urine Bacteria (Negative) HPF Urine Casts (Negative) LPF Urine Mucus (Negative) Ur Culture Indicated? Urine Glucose (Negative) mg/dL POC- Test(urine) Negative PAWSS <Noa Rooney NP - Last Filed: 07/22/22 11:59> Have you Been Recently Intoxicated or Drunk Within the Last 30 days?: No Have you Ever Experienced Previous Episodes of Alcohol Withdrawal?: No Have you ever Experienced Withdrawal Seizures?: No Have you ever Experienced Delirium Tremens(DT)s?: No Have you ever undergone Alcohol Rehabilitation Treatment (i.e, inpt ot outpatient treatment programs)?: No Have you ever Experienced Blackouts?: No Have you ever Combined Alcohol with other Downers within the last 90 days?: No Have you ever Combined Alcohol with any other Substance of Abuse during the last 90 days?: No Positive Blood Alcohol level on Presentation? [PCS.BAL]: No Evidence of Increased Autonomic Activity (i.e. HR>120, tremor, sweating, agitation, nausea)?: No Result: 0 <Alpesh Leyva MD - Last Filed: 08/03/22 17:28> Result: 0
[2022-07-21 19:46] VITALS: BP 120/72; PULSE 92; RESP 16; TEMP 36.6; O2SAT 99
--- NOTE | 2022-07-21 19:53 | NUR.NOTE ---
Requisition faxed to [facility] for RUQ ultrasound for 07/22/22.Nursing Note:
== END 2022-07-21 19:47 | disposition home or self-care (01) ==
PROVIDERS: Emergency Provider Nurse Practitioner Acute Care; PCP Nurse Practitioner Family
DX: R10.11 Right upper quadrant pain (principal); R19.7 Diarrhea, unspecified; R11.2 Nausea with vomiting, unspecified; R19.01 Right upper quadrant abdominal swelling, mass and lump
CPT/HCPCS: 36415; 80053; 81025; 83690; 96361; 96374; 96375; 99284; 81003; 81015; 83605; 83735; 85025; 87086; J2405

== ENCOUNTER 2022-07-22 11:39 | Emergency (ER) | payer OTHER, SELFPAY ==
[2022-07-22 11:43] VITALS: BP 126/93; PULSE 78; RESP 15; TEMP 37.2; O2SAT 99
--- NOTE | 2022-07-22 12:04 | ED.GENADUL_ITS ---
Discharge Plan Disposition Patient Disposition: Home Discharge Details Clinical Impression: Nausea vomiting and diarrhea Primary Care Provider: Erica Mullins ED Provider: Aleta Cuadra Home Meds and New Rx's Prescriptions: New ondansetron 4 mg tablet,disintegrating 4 mg PO DAILY 30 Days Qty: 20 0RF Continued amlodipine 10 mg tablet 10 mg PO DAILY Qty: 90 3RF ondansetron 4 mg tablet,disintegrating 4 mg PO Q6H PRN (Reason: nausea and vomiting) Qty: 7 0RF albuterol sulfate [Ventolin HFA] 90 mcg/actuation HFA aerosol inhaler 2 puff Inhalation Q6H PRN (Reason: shortness of breath or wheezing) Qty: 18 4RF sertraline 50 mg tablet 50 mg PO DAILY Qty: 90 3RF omeprazole 20 mg capsule,delayed release(DR/EC) 20 mg PO DAILY PRN (Reason: heartburn) Qty: 90 3RF levonorgestrel-ethinyl estrad [Eldred 28] 0.15-0.03 mg tablet 1 tab PO DAILY Qty: 84 3RF Discharge Instructions Instructions: Acute Nausea and Vomiting (ED) Additional Instructions: take zofran as needed for nausea and vomiting follow-up with your pcp take a multivitamin daily return earlier with new or worsening complaints Stand Alone Forms: Work Release Discharge Data Discharge Date/Time-TO BE ENTERED AT DEPARTURE: 07/22/22 12:14 Medical Decision Making This 32-year-old female presents with report of abdominal pain and nausea I reviewed patient's labs and discharge summary from yesterday's visit Denies any new symptoms and feels improved currently. Ultrasound report was negative for acute abnormality per radiology interpretation my review, given antiemetics for home Encouraged to follow-up with primary care physician this week HPI General Date/Time Provider Initiated Documentation: 07/22/22 11:47 . HPI Narrative: This 32-year-old female presents with report of nausea and vomiting had ultrasound this morning, here for interpretation, states she feels slightly better than yesterday's presentation. Denies any chance of . Related Data Home Medications Medication Instructions Recorded Confirmed albuterol sulfate 90 mcg/actuation 2 puff inhalation Q6H PRN 01/13/20 07/21/22 aerosol inhaler (Ventolin HFA) shortness of breath or wheezing #18 grams amlodipine 10 mg tablet 10 mg PO DAILY #90 tabs 01/05/22 07/21/22 ondansetron 4 mg disintegrating 4 mg PO Q6H PRN nausea and 05/02/22 07/21/22 tablet vomiting #7 tabs omeprazole 20 mg capsule,delayed 20 mg PO DAILY PRN heartburn #90 05/25/22 07/21/22 release caps sertraline 50 mg tablet 50 mg PO DAILY #90 tab-caps 05/25/22 07/21/22 levonorgestrel 0.15 mg-ethinyl 1 tab PO DAILY #84 tabs 06/27/22 07/21/22 estradiol 0.03 mg tablet (Saira 28) ondansetron 4 mg disintegrating 4 mg PO DAILY 30 days #20 tabs 07/22/22 tablet Previous Rx's Medication Instructions Recorded albuterol sulfate 90 mcg/actuation 2 puff inhalation Q6H PRN 01/13/20 aerosol inhaler (Ventolin HFA) shortness of breath or wheezing #18 grams amlodipine 10 mg tablet 10 mg PO DAILY #90 tabs 01/05/22 ondansetron 4 mg disintegrating 4 mg PO Q6H PRN nausea and 05/02/22 tablet vomiting #7 tabs omeprazole 20 mg capsule,delayed 20 mg PO DAILY PRN heartburn #90 05/25/22 release caps sertraline 50 mg tablet 50 mg PO DAILY #90 tab-caps 05/25/22 levonorgestrel 0.15 mg-ethinyl 1 tab PO DAILY #84 tabs 06/27/22 estradiol 0.03 mg tablet (Eldred 28) ondansetron 4 mg disintegrating 4 mg PO DAILY 30 days #20 tabs 07/22/22 tablet Allergies Allergy/AdvReac Type Severity Reaction Status Date / Time gluten Allergy Verified 07/21/22 15:26 oxybutynin AdvReac Verified 07/21/22 15:26 General Stated Complaint: Recheck ARIK: 4 PFSH All Active Problems (Updated 07/22/22 @ 12:10 by SAROJ Stone) Right upper quadrant abdominal mass (Acute) Nausea vomiting and diarrhea (Acute) Pharyngitis (Acute) EKG abnormality (Acute) Essential hypertension (Chronic) BMI 45.0-49.9, adult (Chronic) Depressive disorder (Chronic) Generalized anxiety disorder (Chronic) Interstitial cystitis (Chronic) Mild obstructive sleep apnea (Chronic) PSG 10/07/14. Managing with position changes and wt loss Contraceptive surveillance (Chronic) Celiac disease (Chronic) External hemorrhoids (Chronic) Axillary hidradenitis suppurativa (Chronic) Medical History ADHD (attention deficit hyperactivity disorder), inattentive type Allergic rhinitis Arthralgia [facility] [place] Rheumatology consulted 2021, secondary to minocycline they suspect. GERD (gastroesophageal reflux disease) Migraine headache without aura Surgical History Hx of esophagogastroduodenoscopy (08/09/11) S/P colonoscopy (08/09/11) Family History Mother Asthma Father Hypertension Sister No problems noted. Daughter No problems noted. Maternal Grandfather Heart disease Hypertension Maternal Grandmother Hyperlipidemia Paternal Grandfather , at 85 Prostate cancer Paternal Grandmother Heart disease Hypertension Stroke Depression Social History Smoking/Tobacco Use Status: Former Tobacco Use tobacco type: cigarettes Quit Date: 10/28/20 Second Hand Exposure: Yes Smoking risk assessment performed?: Yes Alcohol Intake: current Alcohol Intake frequency: a few times a month Alcohol type: beer and wine Drug use: Never Substance use type: does not use Caregiver/Support person: No Household members: children Housing: house Communication Needs: None Do you need help understanding health information?: Rarely current occupation: [employer] Pets and animals: Yes Pets and animals: cat(s) Sexually active: Yes Do you think of yourself as: straight/heterosexual Current gender identity: female What is your relationship status?: never How often do you talk on the phone with friends or family?: twice per week How often do you get together with friends or relatives?: once per week Do you belong to any clubs or organized social groups?: no Panel score (0-1 are the most socially isolated patients): 1 What type of physical activity do you participate in: yoga Duration: < 15 minutes/day Frequency: 1-2 times per week Katie/Restorationist: No preference Special katie needs: No Seatbelt use: always Helmet use: Yes Helmet use: always Drive intox or ride w/intox recycling collections driver: No Water heater temp set <120 deg: No Working smoke detector in home: Yes Fire extinguisher in home: Yes Carbon monox detector in home: Yes Firearms in home: No Do you feel safe at home: Yes Do you feel safe in your relationship?: Yes Victim of physical abuse: No Victim of emotional abuse: No Victim of sexual abuse: No Female Reproductive History Menstrual control method: pills History History 1 Para 1 Hx # Term Pregnancies Multiple births Hx # Pregnancies Ectopic pregnancies AB induced Hx Number of Living Children AB spontaneous Exam Narrative Exam Narrative: Patient is calm and cooperative, no acute distress, no active vomiting, no significant abdominal tenderness Course Vital Signs Vital signs: Vital Signs Temperature 37.2 C 07/22/22 11:43 Pulse 78 07/22/22 11:43 Respiratory Rate 15 07/22/22 11:43 Blood Pressure 126/93 H 07/22/22 11:43 Pulse Oximetry 99 07/22/22 11:43 Temperature 37.2 C 07/22/22 11:43 Temperature Source Temporal Artery Scan 07/22/22 11:43 Pulse 78 07/22/22 11:43 Respiratory Rate 15 07/22/22 11:43 Respiratory Effort Normal 07/22/22 11:46 Blood Pressure 126/93 H 07/22/22 11:43 Blood Pressure Position Sitting 07/22/22 11:43 Pulse Oximetry 99 07/22/22 11:43 Oxygen Delivery Method Room Air 07/22/22 11:43 Oxygen Flow Rate 0 07/22/22 11:43 Pain Level 0 07/22/22 11:43 PAWSS Have you Been Recently Intoxicated or Drunk Within the Last 30 days?: No Have you Ever Experienced Previous Episodes of Alcohol Withdrawal?: No Have you ever Experienced Withdrawal Seizures?: No Have you ever Experienced Delirium Tremens(DT)s?: No Have you ever undergone Alcohol Rehabilitation Treatment (i.e, inpt ot outpatient treatment programs)?: No Have you ever Experienced Blackouts?: No Have you ever Combined Alcohol with other Downers within the last 90 days?: No Have you ever Combined Alcohol with any other Substance of Abuse during the last 90 days?: No Result: 0
== END 2022-07-22 12:14 | disposition home or self-care (01) ==
PROVIDERS: Emergency Provider Physician Assistant; PCP Nurse Practitioner Family
DX: R11.2 Nausea with vomiting, unspecified (principal); Z71.2 Person consulting for explanation of examination or test findings; I10 Essential (primary) hypertension; R19.7 Diarrhea, unspecified
CPT/HCPCS: 99283

== ENCOUNTER 2022-08-12 01:13 | Outpatient (CLI) | payer OTHER, SELFPAY ==
--- NOTE | 2022-08-12 07:00 | DI.NM_ITS ---
Exam(s) NM HEPATOBILIARY CCK GRP EXAM: MD HEPATOBILIARY CCK GRP CLINICAL HISTORY: recurrent pain,NAUSEA,VOMITING,RUQ ABD MASS,R19.01,R19.7,R11.2. TECHNIQUE: Injected dose: 5 mCi Tc-99 mebrofenin Initial dynamic images: 60 minutes Post-Gallbladder fillin.02 mcg/kg CCK intravenously over a 15min infusion. Addition images: 20 minute dynamic during CCK administration. COMPARISON: MD GB Fill from 07/29/2011 FINDINGS: There is normal uptake and excretion of radiopharmaceutical by the liver and activity seen within the gallbladder lumen approximately 6 minute post injection. In response to CCK infusion there is a normal gallbladder ejection fraction of 91 percent demonstrate d. IMPRESSION: Normal study. There is no obstruction of the cystic duct to suggest acute cholecystitis. Also no ev idence of gallbladder dysfunction. The gallbladder ejection fraction is 91 percent which is well wit hin normal limits.
[2022-08-12] MEDS: Sincalide 5 MCG VIAL 2 MCG IJ (11:19)
== END 2022-08-12 01:33 ==
LOC: DI 01:13
PROVIDERS: PCP Nurse Practitioner Family; Visit Provider Nurse Practitioner Family
DX: R11.2 Nausea with vomiting, unspecified (principal); R19.01 Right upper quadrant abdominal swelling, mass and lump; R19.7 Diarrhea, unspecified
CPT/HCPCS: 78227; J2805

== ENCOUNTER 2024-01-24 09:36 | Outpatient (CLI) | payer OTHER, SELFPAY ==
[2024-01-24 12:36] LABS: Hemoglobin A1C 5.2 % (<5.7)
[2024-01-24 12:52] LABS: Anion Gap 9.3 mmol/L (3-11); BUN 10 mg/dL (7-18); CO2 23.7 mmol/L (21.0-32.0); Calcium 8.7 mg/dL (8.5-10.1); Chloride 104 mmol/L (98-107); Estimated GFR 75.81 (mL/min/1.73m2); Glucose 114 mg/dL (74-106); Potassium 3.8 mmol/L (3.5-5.1); Sodium 137 mmol/L (136-145)
[2024-01-24 13:18] LABS: Calculated LDL 116 mg/dL (<100); Cholesterol 203 mg/dL (<200); HDL Cholesterol 59 mg/dL (40-60); Triglyceride 143 mg/dL (<150)
== END 2024-01-24 09:37 | disposition home or self-care (01) ==
LOC: LOS 09:36
PROVIDERS: Nurse Practitioner Family; PCP Nurse Practitioner Family; Referring Provider Nurse Practitioner Family; Visit Provider Nurse Practitioner Family
DX: I10 Essential (primary) hypertension (principal); Z00.00 Encounter for general adult medical examination without abnormal findings; E66.01 Morbid (severe) obesity due to excess calories
CPT/HCPCS: 36415; 80048; 80061; 83036

== ENCOUNTER 2024-04-16 08:17 | Emergency (ER) | payer OTHER, SELFPAY ==
[2024-04-16] VITALS (30 sets, daily range): BP systolic 106–142; BP diastolic 70–104; PULSE 66–100; RESP 15–22; TEMP 37.3; O2SAT 94–100
--- NOTE | 2024-04-16 08:31 | W.ED.GENAD ---
Discharge Plan Disposition Patient Disposition: Home Condition: Stable Discharge Details Clinical Impression: Gastroenteritis Primary Care Provider: Erica Mullins ED Provider: Hasmukh Iverson Home Meds and New Rx's Prescriptions: New ondansetron 4 mg tablet,disintegrating 4 mg PO Q8H PRNQty: 30 0RF Continued Liletta 20.4 mcg/24 hr (8 yrs) 52 mg intrauterine device 1 device intrauterine ONCE Rx Instructions: as a single dose sertraline 50 mg tablet 75 mg PO DAILY Qty: 135 3RF omeprazole 20 mg capsule,delayed release(DR/EC) 20 mg PO DAILY PRN (Reason: heartburn) Qty: 90 3RF albuterol sulfate [Ventolin HFA] 90 mcg/actuation HFA aerosol inhaler 2 puff Inhalation Q6H PRN (Reason: shortness of breath or wheezing) Qty: 18 4RF tirzepatide (weight loss) 5 mg/0.5 mL pen injector 5 mg subcut QWEEK Qty: 2 0RF Discharge Instructions Instructions: Viral gastroenteritis in adults, Ondansetron, Diarrhea, Adult ED Additional Instructions: You were seen in the emergency department for your likely gastroenteritis. Please use the provided Zofran for nausea vomiting as needed, take [id number] Imodium for diarrhea, please use therapeutic dosing of Tylenol (acetamenophen) & Advil (ibuprofen) in an alternating fashion as follows: Take 1000mg of Tylenol every 6 hours without missing doses- that is 4 times per day. Holden in between the Tylenol dosings, take 400-600mg of Advil also on a 6 hour schedule, that is also 4 times per day. The daily maximum dosing of Tylenol is 4000mg, and the daily maximum dosing of Advil is 2400mg. This is safe to do for weeks. Please note that some common cold medications & prescription pain medications may contain acetamenophen and you need to read OTC drug labels and factor that in to maximum daily dosings. Your labs show no significant worrying signs of severe infection and your CT scan is negative for any severe infection it does show an isolated pulmonary nodule which needs a repeat image in 6 to 12 months via your primary care provider is a low risk pulmonary nodule. Please return for any acute emergent concerns including intractable nausea or vomiting, severe increase in right lower quadrant abdominal pain, intractable fevers Stand Alone Forms: Work Release Referrals: Adjovu,Erica, STAIN DIPPER [Primary Care Provider] - Discharge Data Discharge Date/Time-TO BE ENTERED AT DEPARTURE: 04/16/24 11:57 HPI General Date/Time Provider Initiated Documentation: 04/16/24 08:31. HPI Narrative: 33 year-old female presents to ED today by POV/ambulating with a chief complaint of nausea/vomiting, diarrhea with onset for the past few days, she states it was more nausea/vomiting, now more focal diarrhea. Quality described as chills, body aches, RLQ abdominal pain, no radiation to fever, chest pain, shortness of breath, black/bloody diarrhea. Severity is described as moderate. Palliating factors include nothing attempted. Provoking factors include nothing specific. Events leading up to the incident/Associated Symptoms: Patient is able to keep some things down today. Patient not anticoagulated. Related Data Home Medications ?Medication ?Instructions ?Recorded ?Confirmed omeprazole 20 mg capsule,delayed 20 mg PO DAILY PRN heartburn #90 03/09/23 04/16/24 release caps albuterol sulfate 90 mcg/actuation 2 puff inhalation Q6H PRN 06/15/23 04/16/24 aerosol inhaler (Ventolin HFA) shortness of breath or wheezing #18 grams sertraline 50 mg tablet 75 mg (1.5 x 50 mg) PO DAILY #135 01/24/24 04/16/24 tabs levonorgestrel 20.4 mcg/24 hr (up 1 device intrauterine ONCE 02/22/24 04/16/24 to 8 yrs) 52 mg intrauterine device (Liletta) tirzepatide (weight loss) 5 mg/0.5 5 mg (0.5 mL) subcut QWEEK #2 mL 02/26/24 04/16/24 mL subcutaneous pen injector ondansetron 4 mg disintegrating 4 mg PO Q8H PRN #30 tabs 04/16/24 tablet Previous Rx's ?Medication ?Instructions ?Recorded omeprazole 20 mg capsule,delayed 20 mg PO DAILY PRN heartburn #90 03/09/23 release caps albuterol sulfate 90 mcg/actuation 2 puff inhalation Q6H PRN 06/15/23 aerosol inhaler (Ventolin HFA) shortness of breath or wheezing #18 grams sertraline 50 mg tablet 75 mg (1.5 x 50 mg) PO DAILY #135 01/24/24 tabs tirzepatide (weight loss) 5 mg/0.5 5 mg (0.5 mL) subcut QWEEK #2 mL 02/25/ mL subcutaneous pen injector ondansetron 4 mg disintegrating 4 mg PO Q8H PRN #30 tabs 04/16/24 tablet Allergies Allergy/AdvReac Type Severity Reaction Status Date / Time gluten Allergy Nausea Verified 04/16/24 08:29 lactose AdvReac GI Verified 04/16/24 08:29 oxybutynin AdvReac Other (See Verified 04/16/24 08:29 Comment) General Stated Complaint: Abd Prob ARIK: 3 Review of Systems All systems reviewed & are unremarkable except as noted in HPI and below Exam Narrative Exam Narrative: GENERAL APPEARANCE: Well-nourished, non-toxic, awake and alert, atraumatic, no acute distress. SKIN: Warm, pink, dry, intact, without rashes/lesions/ulcerations. HEAD: Normocephalic, atraumatic, normal hair distribution for gender/age. EYES: Normal conjunctiva, no exudates on lids/lashes. ENT: Nares patent, no circumoral cyanosis, no facial swelling NECK: Supple, trachea midline, painless cervical ROM. LUNGS/CHEST: Lungs CTA bilaterally, non-labored respirations, normal A/P diameter, symmetrical expansion, no chest wall deformity HEART (CV/PV): Regular rate and rhythm without murmur, no peripheral edema, no JVD. ABDOMEN: Soft, non-distended, no guarding, RLQ tenderness without Rovsing's, rebound tenderness. MSK: Normal ROM, no swelling/deformity to bilateral UEs or LEs, moving all extremities without weakness, no cyanosis, spine midline without tenderness, normal curvature. NEURO: Mental Status AAOx4 - alert to person, place, time, events No facial droop, no forehead involvement. Motor: No focal weakness - strength 5/5 in bilateral UEs and LEs, proximal and distal, symmetric. Sensory: sensation intact to light touch globally. Gait normal: patient ambulated without ataxia into ED room. PSYCH: euthymic, cooperative, pleasant, appropriate speech Course Vital Signs Vital signs: Vital Signs Temperature 37.3 C 04/16/24 08:24 Pulse 93 H 04/16/24 08:24 Respiratory Rate 22 04/16/24 08:24 Blood Pressure 142/92 H 04/16/24 08:24 Pulse Oximetry 99 04/16/24 08:24 Temperature 37.3 C 04/16/24 08:30 Temperature Source Tympanic 04/16/24 08:30 Pulse 93 H 04/16/24 08:30 Respiratory Rate 22 04/16/24 08:30 Blood Pressure 142/92 H 04/16/24 08:30 Pulse Oximetry 99 04/16/24 08:30 Pain Level 8 04/16/24 08:30 Medical Decision Making This dictation utilizes [id number] dictation software and may contain unedited grammatical errors. 33 year-old female presents to ED today by POV/ambulating with a chief complaint of nausea/vomiting, diarrhea with onset for the past few days, she states it was more nausea/vomiting, now more focal diarrhea. Quality described as chills, body aches, RLQ abdominal pain, no radiation to fever, chest pain, shortness of breath, black/bloody diarrhea. Severity is described as moderate. Palliating factors include nothing attempted. Provoking factors include nothing specific. Events leading up to the incident/Associated Symptoms: Patient is able to keep some things down today. Patients' medical history: GERD, celiac disease, obesity. Family and social history: Noncontributory. Pertinent exam findings / vital signs include right lower quadrant abdominal tenderness without rebound tenderness, negative Munoz sign, benign cardiopulmonary exam, tolerating p.o. intake. Differential / pathologies of concern include gastroenteritis, less likely appendicitis, unlikely sepsis, possible renal colic, UTI. Diagnostic studies of: -CBC, CMP, lactate, magnesium, CRP, lipase, CT ABD/pelvis with contrast. -CBC shows no leukocytosis, no left shift -CMP shows no actionable abnormality, mildly low potassium which would replete with normal intake -CRP mildly elevated -Lipase negative -Magnesium within normal limits -Lactate negative -UA not provided -CT shows no acute process, informed patient of incidental finding of pulmonary nodule Interventions of: -IV ketorolac, Zofran, Tylenol. ED Course/Assessment/Plan: 33-year-old female presents with right lower quadrant abdominal pain and syndrome of likely gastroenteritis, workup is negative for any acute processes, do not suspect sepsis or acute emergent abdominal surgical pathology, do not suspect renal colic, normal appendix visualized. Symptomatic improvement with antiemetic & OTC analgesics, counseled the patient on continuing Zofran at home with likely resolution, strict return criteria for intractable nausea vomiting, severe worsening of abdominal pain, high fever with abdominal pain Findings not consistent with appendicitis, renal stone, ureteral stone, abdominal surgical pathology. Disposition of gastroenteritis. Patient verbalized understanding of the plan and return to ED criteria and engaged in shared decision making. Medical Records Medical records reviewed: Yes I reviewed the patient's medical records. Imaging Data Radiologic Study: Attestation: I personally reviewed and interpreted this imaging study as follows: Imaging: CT Scan Radiologist's impression: EXAM: CT ABDOMEN PELVIS W CLINICAL HISTORY: RLQ tenderness TECHNIQUE: Imaging Protocol: Axial computed tomography images with coronal and sagittal reformatted images were created and reviewed. CONTRAST MATERIAL: Intravenous: Omnipaque 350 Contrast volume:100 mL Oral: No COMPARISON: US US ABDOMEN LIMITED from 07/22/2022 FINDINGS: ABDOMEN: Lung Bases: There is a 6 mm nodule in the right lower lobe. The lungs are otherwise clear. Liver: Normal density. No measurable mass. Portal, Superior Mesenteric, and Splenic Veins: Unremarkable. Gallbladder and Biliary Tract: There are few tiny density seen in the dependent portion of the gallbladder suspicious for cholelithiasis. No biliary ductal dilatation. Pancreas: Normal density, no abnormal calcifications or inflammatory process. Spleen: Normal. Adrenals: No masses seen. Kidneys: Normal size, contour and axis. No radiodense stones or obstructive uropathy. No masses seen. Abdominal Aorta: Abdominal portion non-dilated. Bowel: No obstruction or bowel wall thickening. The proximal appendix measures 7 mm in diameter. The appendix is fluid-filled and tapers to 4 mm distally. No Alice appendiceal inflammation or appendicoliths is present. Peritoneal Cavity: No ascites, collection or mesenteric inflammatory response. No free air. Lymph Nodes: Within normal limits. Bones: Within normal limits for the patient's age. Soft Tissues: Unremarkable. PELVIS: Bladder: Symmetric distention, no gross wall thickening. Reproductive Organs: There is an IUD which appears in good position. There is a 2.1 cm right ovarian follicular cyst. Lymph Nodes: Within normal limits. Bones: Within normal limits for the patient's age. IMPRESSION: 1. The appendix measures 7 mm proximally. No Alice appendiceal inflammation, appendicolith or abscess is seen. No definite evidence to suggest acute appendicitis is seen at this time. Follow-up as clinically appropriate. 2. 6 mm right lower lobe pulmonary nodule. For solitary solid noncalcified nodules measuring 6???8 mm in patients at high risk, an initial follow-up examination is recommended at 6???12 months and again at 18???24 months (grade 1B: strong recommendation, moderate quality evidence). Lab Data Lab results reviewed: Yes I reviewed the patient's lab results. Labs: Laboratory Tests Range/Units 04/16/24 10:10 WBC (4.4-10.8) 10^3/uL 3.29 L RBC (3.93-5.22) 10^6/uL 4.72 Hgb (11.2-15.7) g/dL 14.1 Hct (36.0-46.0) % 42.6 MCV (80-95) fL 90 MCH (27.0-33.0) pg 29.9 MCHC (32.0-36.0) % 33.1 RDW (11.7-14.6) % 15.9 H Plt Count (130-400) 10^3/uL 319 MPV (8.0-11.0) fL 9.0 Immature Gran % % 0.3 Neutrophils % % 68.4 Lymphocytes % % 21.3 Monocytes % % 7.3 Eosinophils % % 2.1 Basophils % % 0.6 Nucleated RBC % (0.0-0.3) % 0.0 Absolute Neutrophils (1.2-6.7) 10^3/uL 2.25 Absolute Lymphocytes (1.2-3.4) 10^3/uL 0.70 L Absolute Monocytes (0.1-0.8) 10^3/uL 0.24 Absolute Eosinophils (0.0-0.7) 10^3/uL 0.07 Absolute Basophils (0.0-0.2) 10^3/uL 0.02 VBG Lactate (<or=2.0) mmol/L 0.7 Sodium (136-145) mmol/L 139 Potassium (3.5-5.1) mmol/L 3.4 L Chloride (98-107) mmol/L 106 Carbon Dioxide (21.0-32.0) mmol/L 23.9 Anion Gap (3-11) mmol/L 9.1 BUN (7-18) mg/dL 6 L Creatinine (0.55-1.02) mg/dL 0.9 Est GFR (CKD-EPI 2020) (mL/min/1.73m2) 86.03 Glucose (74-106) mg/dL 88 Calcium (8.5-10.1) mg/dL 8.5 Magnesium (1.8-2.4) mg/dL 1.9 Total Bilirubin (0.2-1.0) mg/dL 0.70 AST (15-37) U/L 27 ALT (14-59) U/L 37 Alkaline Phosphatase (46-116) U/L 85 C-Reactive Protein (<or=0.5) mg/dL 5.09 H Total Protein (6.4-8.2) g/dL 7.7 Albumin (3.4-5.0) g/dL 3.7 Lipase (<78) U/L 28 Quality:SDOH Health Related Social Needs: No Data to Display PFSH All Active Problems (Updated 04/16/24 @ 11:35 by SAROJ Aquino) Gastroenteritis (Acute) Essential hypertension (Chronic) Depressive disorder (Chronic) Generalized anxiety disorder (Chronic) Interstitial cystitis (Chronic) Mild obstructive sleep apnea (Chronic) PSG 10/07/14. Managing with position changes and wt loss Celiac disease (Chronic) External hemorrhoids (Chronic) Axillary hidradenitis suppurativa (Chronic) Severe obesity (BMI >= 40) (Chronic) Rosacea (Chronic) Allergic rhinitis (Chronic) Medical History (Updated 04/16/24 @ 11:35 by SAROJ Aquino) Presence of Liletta IUD Liletta IUD placed 02/22/24 Arthralgia [facility] [place] consulted 2021, secondary to minocycline they suspect. Migraine headache without aura GERD (gastroesophageal reflux disease) ADHD (attention deficit hyperactivity disorder), inattentive type Surgical History S/P colonoscopy (08/09/11) Hx of esophagogastroduodenoscopy (08/09/11) Family History Mother Asthma Father Hypertension Sister No problems noted. Daughter No problems noted. Maternal Grandfather Heart disease Hypertension Maternal Grandmother Hyperlipidemia Paternal Grandfather , at 85 Prostate cancer Paternal Grandmother Heart disease Hypertension Stroke Depression Social History Smoking/Tobacco Use Status: Former Tobacco Use tobacco type: cigarettes Quit Date: 11/27/20 Tobacco: How many years used: 16 Quit status: has quit before Second Hand Exposure: Yes Smoking risk assessment performed?: Yes Alcohol Intake: current Alcohol Intake frequency: a few times a month Alcohol type: beer Drug use: Never Substance use type: does not use Caregiver/Support person: No Household members: children Housing: house Communication Needs: None Do you need help understanding health information?: Rarely current occupation: [employer], [employer] Pets and animals: Yes Pets and animals: cat(s) Sexually active: Yes Do you think of yourself as: straight/heterosexual Current gender identity: female What is your relationship status?: never How often do you talk on the phone with friends or family?: twice per week How often do you get together with friends or relatives?: once per week Do you belong to any clubs or organized social groups?: no Panel score (0-1 are the most socially isolated patients): 1 What type of physical activity do you participate in: yoga Duration: < 15 minutes/day Frequency: 1-2 times per week Katie/Denominational: No preference Special katie needs: No Seatbelt use: always Helmet use: Yes Helmet use: always Drive intox or ride w/intox package delivery driver: No Water heater temp set <120 deg: No Working smoke detector in home: Yes Fire extinguisher in home: Yes Carbon monox detector in home: Yes Firearms in home: No Do you feel safe at home: Yes Do you feel safe in your relationship?: Yes Victim of physical abuse: No Victim of emotional abuse: No Victim of sexual abuse: No Female Reproductive History Menstrual control method: pills History History 1 Para 1 Hx # Term Pregnancies Multiple births Hx # Pregnancies Ectopic pregnancies AB induced Hx Number of Living Children AB spontaneous
[2024-04-16] MEDS: ACETAMINOPHEN 1,000 MG/100 ML BAG 400 MG IVPB (10:03)
[2024-04-16] MEDS: Ketorolac 15 MG/ML VIAL IVP (10:03)
[2024-04-16] MEDS: Ondansetron 4 MG/2 ML VIAL IVP (10:03)
[2024-04-16 10:15] LABS: Abs Immature Grans 0.01 10^3/uL (0.0-0.06); Absolute Basophil Count 0.02 10^3/uL (0.0-0.2); Absolute Eosinophil Count 0.07 10^3/uL (0.0-0.7); Absolute Monocyte Count 0.24 10^3/uL (0.1-0.8); Absolute Neutrophil Count 2.25 10^3/uL (1.2-6.7); Basophils % 0.6 %; Eosinophils % 2.1 %; HCT 42.6 % (36.0-46.0); HGB 14.1 g/dL (11.2-15.7); Immature Grans % 0.3 %; Lactate 0.7 mmol/L (<or=2.0); Lymphocytes % 21.3 %; MCH 29.9 pg (27.0-33.0); MCHC 33.1 % (32.0-36.0); MCV 90 fL (80-95); Monocytes % 7.3 %; Neutrophils % 68.4 %; Platelet Count 319 10^3/uL (130-400); RBC 4.72 10^6/uL (3.93-5.22); RDW 15.9 % (11.7-14.6); RDW-SD 52.9 fL; WBC 3.29 10^3/uL (4.4-10.8)
--- NOTE | 2024-04-16 10:30 | DI.CT_ITS ---
Exam(s) CT ABDOMEN PELVIS W EXAM: CT ABDOMEN PELVIS W CLINICAL HISTORY: RLQ tenderness TECHNIQUE: Imaging Protocol: Axial computed tomography images with coronal and sagittal reformatted images were created and reviewed. CONTRAST MATERIAL: Intravenous: Omnipaque 350 Contrast volume:100 mL Oral: No COMPARISON: US US ABDOMEN LIMITED from 07/22/2022 FINDINGS: ABDOMEN: Lung Bases: There is a 6 mm nodule in the right lower lobe. The lungs are otherwise clear. Liver: Normal density. No measurable mass. Portal, Superior Mesenteric, and Splenic Veins: Unremarkable. Gallbladder and Biliary Tract: There are few tiny density seen in the dependent portion of the gallbl adder suspicious for cholelithiasis. No biliary ductal dilatation. Pancreas: Normal density, no abnormal calcifications or inflammatory process. Spleen: Normal. Adrenals: No masses seen. Kidneys: Normal size, contour and axis. No radiodense stones or obstructive uropathy. No masses seen. Abdominal Aorta: Abdominal portion non-dilated. Bowel: No obstruction or bowel wall thickening. The proximal appendix measures 7 mm in diameter. The appendix is fluid-filled and tapers to 4 mm distally. No Alice appendiceal inflammation or appendico liths is present. Peritoneal Cavity: No ascites, collection or mesenteric inflammatory response. No free air. Lymph Nodes: Within normal limits. Bones: Within normal limits for the patient's age. Soft Tissues: Unremarkable. PELVIS: Bladder: Symmetric distention, no gross wall thickening. Reproductive Organs: There is an IUD which appears in good position. There is a 2.1 cm right ovarian follicular cyst. Lymph Nodes: Within normal limits. Bones: Within normal limits for the patient's age. IMPRESSION: 1. The appendix measures 7 mm proximally. No Alice appendiceal inflammation, appendicolith or abscess is seen. No definite evidence to suggest acute appendicitis is seen at this time. Follow-up as cli nically appropriate. 2. 6 mm right lower lobe pulmonary nodule. For solitary solid noncalcified nodules measuring 6???8 mm in patients at high risk, an initial follo w-up examination is recommended at 6???12 months and again at 18???24 months (grade 1B: strong recomm endation, moderate quality evidence). (Enrique et al., 2017) Solitary noncalcified solid nodules measuring 6???8 mm in patients with low clinical risk are recomme nded to undergo initial follow-up at 6???12 months depending on size, morphology, and patient prefere nce (grade 1C: strong recommendation, low- or [id number] evidence). (Enrique et al., 2017) RADIATION DOSE DELIVERED: 870.07mGy.cm Total DLP DATA REPOSITORY: All CT scans at this facility are submitted to the National Radiology Data Registry (NRDR) Dose Index Registry (DIR) with the [employer] (A[employer]). RADIATION OPTIMIZATION: All CT scans at this facility use at least one of these dose optimization te chniques: automated exposure control; mA and/or kV adjustment per patient size (includes targeted exa ms where dose is matched to clinical indication); or iterative reconstruction.
[2024-04-16 10:36] LABS: ALT 37 U/L (14-59); AST 27 U/L (15-37); Albumin 3.7 g/dL (3.4-5.0); Alkaline Phosphatase 85 U/L (46-116); Anion Gap 9.1 mmol/L (3-11); BUN 6 mg/dL (7-18); C-Reactive Protein 5.09 mg/dL (<or=0.5); CO2 23.9 mmol/L (21.0-32.0); CREATININE 0.9 mg/dL (0.55-1.02); Calcium 8.5 mg/dL (8.5-10.1); Chloride 106 mmol/L (98-107); Estimated GFR 86.03 (mL/min/1.73m2); Glucose 88 mg/dL (74-106); Lipase 28 U/L (<78); Magnesium 1.9 mg/dL (1.8-2.4); Potassium 3.4 mmol/L (3.5-5.1); Sodium 139 mmol/L (136-145); Total Protein 7.7 g/dL (6.4-8.2)
[2024-04-16] MEDS: Omnipaque 350 MG/ML 100 ML BTL IJ (10:57)
[2024-04-16] MEDS: Normal Saline - Diluent 50 ML VIAL IJ (10:58)
== END 2024-04-16 11:57 | disposition home or self-care (01) ==
PROVIDERS: Emergency Provider Physician Assistant; PCP Nurse Practitioner Family
DX: K52.9 Noninfective gastroenteritis and colitis, unspecified (principal)
CPT/HCPCS: 80053; 83690; 96374; 96375; 99285; 74177; 83605; 83735; 85025; 86140; 99284; J0131; J1885; J2405; J3490

== ENCOUNTER 2024-09-11 09:33 | Observation (INO) | payer OTHER, SELFPAY ==
[2024-09-11] VITALS (7 sets, daily range): BP systolic 108–136; BP diastolic 74–92; PULSE 65–96; RESP 12–18; TEMP 36.2–37; O2SAT 97–100
--- NOTE | 2024-09-11 09:55 | ED.GENADUL_ITS ---
Discharge Plan Disposition Patient Disposition: Admit to [facility] Condition: Good Discharge Details Clinical Impression: Cholelithiasis Admit Date/Time: 09/11/24 13:00 Admit Provider: Eduarda Akers Attending Provider: Eduarda Akers Primary Care Provider: Erica Mullins ED Provider: Lena Jennings Discharge Data Discharge Date/Time-TO BE ENTERED AT DEPARTURE: 09/11/24 17:44 HPI <Lena Alston - Last Filed: 09/11/24 15:34> General Date/Time Provider Initiated Documentation: 09/11/24 09:35 . HPI Narrative: Clarissa is a 34-year-old female who presents to the emergency department today for evaluation of severe intermittent right upper quadrant pain since last night. She was sent over by [facility] for further evaluation. Patient reports abrupt onset of upper abdominal pain that woke her up at 2130 hours last night, initially thought to be related to diarrhea but persisted for 3 hours. Describes pain as aching and stabbing, preventing lying down, bending over, or breathing comfortably. Pain subsided but returned the following morning while taking her daughter to daycare. Pain is intermittent, with periods of relief followed by full-blown episodes (at worst 10/10). Currently rates pain as 6-7/10, is accompanied by constant right flank pain. States that episodes of pain are accompanied by nausea and vomiting, as well as shortness of breath; the symptoms resolved when pain has subsided. She has not had anything to eat or drink since onset of symptoms. Denies associated fever/chills, recent illness such as congestion/sore throat/cough, chest pain, difficulty breathing, change in bowel or bladder function, dysuria. Did not take any medication for pain last night. Past medical history significant for: HTN. She does report a history of gastrointestinal problems, no abdominal surgical history Related Data Home Medications ?Medication ?Instructions ?Recorded ?Confirmed omeprazole 20 mg capsule,delayed 20 mg PO DAILY PRN he artburn #90 03/09/23 09/11/24 release caps albuterol sulfate 90 mcg/actuation 2 puff inhalation Q 6H PRN 06/15/23 09/11/24 aerosol inhaler (Ventolin HFA) shortness of breath or wheezing #18 grams sertraline 50 mg tablet 75 mg (1.5 x 50 mg) PO DAILY #135 01/24/24 09/11/24 tabs levonorgestrel 20.4 mcg/24 hr (up 1 device intrauterin e ONCE 02/22/24 09/11/24 to 8 yrs) 52 mg intrauterine device (Liletta) ondansetron 4 mg disintegrating 4 mg PO Q8H PRN #30 ta bs 04/16/24 09/11/24 tablet tirzepatide (weight loss) 12.5 12.5 mg (0.5 mL) subcut QWEEK #2 mL 08/16/24 09/11/24 mg/0.5 mL subcutaneous pen injector hydrocodone 5 mg-acetaminophen 325 1 tab PO Q6H PRN #1 0 tabs 17/25 mg tablet Previous Rx's ?Medication ?Instructions ?Recorded omeprazole 20 mg capsule,delayed 20 mg PO DAILY PRN he artburn #90 03/09/23 release caps albuterol sulfate 90 mcg/actuation 2 puff inhalation Q 6H PRN 06/15/23 aerosol inhaler (Ventolin HFA) shortness of breath or wheezing #18 grams sertraline 50 mg tablet 75 mg (1.5 x 50 mg) PO DAILY #135 01/24/24 tabs ondansetron 4 mg disintegrating 4 mg PO Q8H PRN #30 ta bs 04/16/24 tablet tirzepatide (weight loss) 12.5 12.5 mg (0.5 mL) subcut QWEEK #2 mL 08/16/24 mg/0.5 mL subcutaneous pen injector hydrocodone 5 mg-acetaminophen 325 1 tab PO Q6H PRN #1 0 tabs 17/25 mg tablet Allergies Allergy/AdvReac Type Severity Reaction Status Date / Time gluten Allergy Nausea Verified 09/11/24 09:39 lactose AdvReac GI Verified 09/11/24 09:39 oxybutynin AdvReac Other (See Verified 09/11/24 09:39 Comment) semaglutide (From Barbara) AdvReac Suicidal Verified 09/11/24 09:39 thoughts General Stated Complaint: Abd Prob ARIK: 3 Exam <Lena Alston - Last Filed: 09/11/24 15:34> Narrative Exam Narrative: General Appearance: Alert and oriented, in no acute distress. Vital signs: Within normal limits. HEENT: Moist mucous membranes. Respiratory: Easy work of breathing, clear lung sounds bilaterally. Cardiovascular: Normal heart sounds. Gastrointestinal: Abdomen soft, nondistended, nontender to palpation, normoactive bowel sounds, no CVA tenderness. No rigidity or guarding. No abdominal or flank ecchymosis. Skin: No rashes or skin lesions. Psychiatric: Normal. Course <Lena Feliz [facility] Filed: 09/11/24 15:34> Vital Signs Vital signs: Vital Signs Temperature 37.0 C 09/11/24 09:37 Pulse 91 H 09/11/24 09:37 Respiratory Rate 18 09/11/24 09:37 Blood Pressure 136/86 09/11/24 09:37 Pulse Oximetry 98 09/11/24 09:37 Temperature 37.0 C 09/11/24 09:37 Temperature Source Oral 09/11/24 09:37 Pulse 91 H 09/11/24 09:37 Respiratory Rate 18 09/11/24 09:37 Blood Pressure 136/86 09/11/24 09:37 Blood Pressure Position Sitting 09/11/24 09:37 Pulse Oximetry 98 09/11/24 09:37 Oxygen Delivery Method Room Air 09/11/24 09:37 Oxygen Flow Rate 0 09/11/24 09:37 Pain Level 7 09/11/24 09:37 Medical Decision Making <Lena Feliz [facility] Filed: 09/11/24 15:34> Initial Assessment: Upper abdominal pain with nausea and vomiting, pain wrapping around to the back, current pain level 6-7/10, escalating to 10/10 at its worst. Physical exam and vital signs reassuring. Differential Diagnosis includes but is not limited to: Cholecystitis, nephr olithiasis, gastritis, pancreatitis, hepatitis. No red flags in history or physical exam concerning for acute surgical abdomen at this time. I independently interpreted the following tests: CBC reassuring. CMP notable for very elevated LFTs, including bilirubin 2.9, AST 612, ALT 451, and alk phos 157. Lipase negative. UA not consistent with UTI. Bedside POCUS ultrasound performed, +gallstones noted, no obvious GB wall thickening, + sonographic Olivas's sign. These findings were confirmed by formal US. Discussed case with Dr. Akers, general surgeon. Patient to be admitted for overnight monitoring, as she may have already passed obstructing stone. Plan for likely OR in morning. ED Course: - Labs ordered. - Toradol and Zofran administered intravenously. - Consult general surgery While in the ED patient remained n.p.o. Clinical Impression: - Cholelithiasis without cholecystitis or complications Disposition: - Admit to [facility] under surgical service Patient consented to the use of JAYESH Imaging Data Radiologic Study: Radiologist's impression: Exam(s) US ABDOMEN LIMITED EXAM: US ABDOMEN LIMITED CLINICAL HISTORY: RUQ pain, + sonographic murphys on pocus TECHNIQUE: Ultrasound abdomen performed using standard protocol. COMPARISON: US US ABDOMEN LIMITED from 07/22/[address] ABDOMEN PELVIS W from 04/16/2024 FINDINGS: PANCREAS: Normal where visualized. LIVER: There is mild fatty infiltration of the liver. Hepatopetal flow in the Portal Vein. The liver measures in 19.0 cm length. No evidence of a hepatic mass. GALLBLADDER:There are multiple small gallstones present. No evidence of wall thickening. No pericholecystic fluid identified. BILIARY SYSTEM: Common bile duct measures < 7 mm. No intrahepatic biliary ductal dilation. OLIVAS'S SIGN: Positive RIGHT KIDNEY: Kidney is normal in size. No evidence of renal calculi. No evidence of hydronephrosis. No renal mass or cyst identified. ASCITES: None seen. IMPRESSION: Cholelithiasis and a positive sonographic Olivas sign suspicious for acute cholecystitis. Quality:SDOH Health Related Social Needs: Health related social needs risk of homeless <Alpesh Leyva MD - Last Filed: 09/12/24 16:22> Date: 09/11/24 Time: 11:36 Note: Patient was seen with PMO PROJECT MANAGER Aanm Alston. I agree with assessment and treatment plan as discussed and documented. POCUS exam was performed with nurse practitioner. POCUS consistent with cholelithiasis, positive sonographic Olivas sign. PFSH <Lena Alston - Last Filed: 09/11/24 15:34> All Active Problems Elevated liver enzymes (Acute) Acute cholecystitis due to biliary calculus (Acute) Cholelithiasis (Acute) Pulmonary nodule (Acute) Essential hypertension (Chronic) Depressive disorder (Chronic) Generalized anxiety disorder (Chronic) Interstitial cystitis (Chronic) Mild obstructive sleep apnea (Chronic) PSG 10/07/14. Managing with position changes and wt loss Presence of Liletta IUD (Chronic) Liletta IUD placed 02/22/24 Celiac disease (Chronic) External hemorrhoids (Chronic) Axillary hidradenitis suppurativa (Chronic) Rosacea (Chronic) Allergic rhinitis (Chronic) Obesity (Chronic) Medical History Arthralgia [facility] [place] [facility] consulted 2021, secondary to minocycline they suspect. Migraine headache without aura GERD (gastroesophageal reflux disease) ADHD (attention deficit hyperactivity disorder), inattentive type Surgical History S/P colonoscopy (08/09/11) Hx of esophagogastroduodenoscopy (08/09/11) Family History Mother Asthma Father Hypertension Sister No problems noted. Daughter No problems noted. Maternal Grandfather Heart disease Hypertension Maternal Grandmother Hyperlipidemia Paternal Grandfather , at 85 Prostate cancer Paternal Grandmother Heart disease Hypertension Stroke Depression Social History Smoking/Tobacco Use Status: Former Tobacco Use tobacco type: cigarettes Quit Date: 11/27/20 Tobacco: How many years used: 16 Quit status: has quit before Second Hand Exposure: Yes Smoking risk assessment performed?: Yes Alcohol Intake: current Alcohol Intake frequency: a few times a month Alcohol type: beer Drug use: Never Substance use type: does not use Caregiver/Support person: No Household members: children Housing: house Communication Needs: None Do you need help understanding health information?: Rarely current occupation: [employer] Pets and animals: Yes Pets and animals: cat(s) Sexually active: Yes Do you think of yourself as: straight/heterosexual Current gender identity: female What is your relationship status?: never How often do you talk on the phone with friends or family?: twice per week How often do you get together with friends or relatives?: once per week Do you belong to any clubs or organized social groups?: no Panel score (0-1 are the most socially isolated patients): 1 What type of physical activity do you participate in: yoga Duration: < 15 minutes/day Frequency: 1-2 times per week Katie/Sabianist: No preference Special katie needs: No Seatbelt use: always Helmet use: Yes Helmet use: always Drive intox or ride w/intox milk tanker driver: No Water heater temp set <120 deg: No Working smoke detector in home: Yes Fire extinguisher in home: Yes Carbon monox detector in home: Yes Firearms in home: No Do you feel safe at home: Yes Do you feel safe in your relationship?: Yes Victim of physical abuse: No Victim of emotional abuse: No Victim of sexual abuse: No Female Reproductive History Menstrual control method: progestin IUCD History History 1 Para 1 Hx # Term Pregnancies Multiple births Hx # Pregnancies Ectopic pregnancies AB induced Hx Number of Living Children AB spontaneous POCUS Exam (ED) <Alpesh Leyva MD - Last Filed: 09/12/24 16:22> Limited Gallbladder Exam DATE OF EXAM: 09/11/24 TIME OF EXAM: 11:37 PROVIDER THAT PERFORMED THE STUDY: Alpesh Leyva IS THIS A REPEAT EXAM DURING THIS ENCOUNTER: No REASON FOR VISIT: Abdominal pain VISUALIZED STRUCTURES: Gallbladder PERTINENT FINDINGS/IMPRESSION: Cholecystitis and Cholelithiasis; No Pericholecystic fluid DIFFERENTIAL DIAGNOSIS: Cholelithiasis versus cholecystitis Exam complete
[2024-09-11 10:15] LABS: Abs Immature Grans 0.02 10^3/uL (0.0-0.06); HCT 41.4 % (36.0-46.0); HGB 14.2 g/dL (11.2-15.7); Immature Grans % 0.3 %; MCH 31.1 pg (27.0-33.0); MCHC 34.3 % (32.0-36.0); MCV 91 fL (80-95); MPV 9.4 fL (8.0-11.0); Platelet Count 334 10^3/uL (130-400); RBC 4.57 10^6/uL (3.93-5.22); RDW 13.9 % (11.7-14.6); RDW-SD 45.5 fL; WBC 7.04 10^3/uL (4.4-10.8)
[2024-09-11] MEDS: Ondansetron 4 MG/2 ML VIAL IVP (10:15)
[2024-09-11] MEDS: Ketorolac 15 MG/ML VIAL IVP (10:15)
[2024-09-11 10:18] LABS: Glucose Negative (Negative)
[2024-09-11 10:39] LABS: ALT 451 U/L (14-59); AST 612 U/L (15-37); Albumin 4.0 g/dL (3.4-5.0); Alkaline Phosphatase 157 U/L (46-116); Anion Gap 13.2 mmol/L (3-11); BUN 10 mg/dL (7-18); Bilirubin, Total 2.9 mg/dL (0.2-1.0); CO2 23.8 mmol/L (21.0-32.0); Calcium 9.3 mg/dL (8.5-10.1); Chloride 102 mmol/L (98-107); Estimated GFR 115.59 (mL/min/1.73m2); Glucose 86 mg/dL (74-106); Lipase 35 U/L (<78); Magnesium 1.9 mg/dL (1.8-2.4); Potassium 3.4 mmol/L (3.5-5.1); Sodium 139 mmol/L (136-145); Total Protein 7.8 g/dL (6.4-8.2)
[2024-09-11 10:41] LABS: C & S Indicated? No; RBC 0-2 HPF (0-2); WBC 0-2 HPF (0-5)
--- NOTE | 2024-09-11 11:15 | DI.US_ITS ---
Exam(s) US ABDOMEN LIMITED EXAM: US ABDOMEN LIMITED CLINICAL HISTORY: RUQ pain, + sonographic murphys on pocus TECHNIQUE: Ultrasound abdomen performed using standard protocol. COMPARISON: US US ABDOMEN LIMITED from 07/22/[address] ABDOMEN PELVIS W from 04/16/2024 FINDINGS: PANCREAS: Normal where visualized. LIVER: There is mild fatty infiltration of the liver. Hepatopetal flow in the Portal Vein. The liver measures in 19.0 cm length. No evidence of a hepatic mass. GALLBLADDER:There are multiple small gallstones present. No evidence of wall thickening. No pericholecystic fluid identified. BILIARY SYSTEM: Common bile duct measures < 7 mm. No intrahepatic biliary ductal dilation. MUNOZ'S SIGN: Positive RIGHT KIDNEY: Kidney is normal in size. No evidence of renal calculi. No evidence of hydronephrosis. No renal mass or cyst identified. ASCITES: None seen. IMPRESSION: Cholelithiasis and a positive sonographic Munoz sign suspicious for acute cholecystitis. DATA REPOSITORY:
[2024-09-11] MEDS: Lactated Ringers 1,000 ML 125 ML IV ×2 (12:11→23:06)
--- NOTE | 2024-09-11 19:14 | W.PC.ACHO ---
Registration Status: ADM IN Primary Language: Preferred Language: Hungarian ED Information & Data Chief Complaint Abd Prob 09/11/24 10:02 Triage Note sent from urgent care for 09/11/24 09:37 work up for RUQ pain that started suddenly last night around 11pm. Unable to move/ sleep/bend- has never felt this pain before. Pain radiating into back. Tenderness in abdomen, nausea and vomited last night. Has not taken anything for pain today. Medical / Surgical History (Last Reviewed 04/19/24 @ 08:48 by Erica Mullins NP) Arthralgia Migraine headache without aura GERD (gastroesophageal reflux disease) ADHD (attention deficit hyperactivity disorder), inattentive type (Last Reviewed 04/19/24 @ 08:48 by Erica Mullins NP) S/P colonoscopy (08/09/11) Hx of esophagogastroduodenoscopy (08/09/11) Most Recent Vital Signs Temperature 36.7 C 09/11/24 18:43 Temperature Source Temporal Artery Scan 09/11/24 18:43 Pulse 72 09/11/24 18:43 Respiratory Rate 16 09/11/24 18:43 Blood Pressure 108/92 H 09/11/24 18:43 Blood Pressure Mean 97 09/11/24 18:43 Blood Pressure Position Supine 09/11/24 17:57 Pulse Oximetry 100 09/11/24 18:43 Oxygen Delivery Method Room Air 09/11/24 18:43 Oxygen Flow Rate 0 09/11/24 18:43 Pain Level 2 09/11/24 16:16 Allergies gluten Allergy (Verified 09/11/24 09:39) Nausea lactose Adverse Reaction (Verified 09/11/24 09:39) GI oxybutynin Adverse Reaction (Verified 09/11/24 09:39) Other (See Comment) GI upset semaglutide (From [employer]) Adverse Reaction (Verified 09/11/24 09:39) Suicidal thoughts Precautions Isolation Standard precaution 09/11/24 09:40 Active Medications Generic Name Dose Route Start Last Admin Trade Name Freq PRN Reason Stop Dose Admin Ringer's Solution 1,000 mls @ 125 mls/hr 09/11/24 11:30 09/11/24 12:11 IV 09/11/24 19:29 125 mls/hr INFUSION STA Administration IV IV Catheter Type [Right Saline Lock Antecubital] IV Catheter Gauge [Right 18 Antecubital] Diet Orders Category Date Time Status DIET [Regular/Normal] [DIET] Nutrition 09/11/24 Dinner Active Diagnostics 09/11/24 09/11/24 Range/Units 10:09 09:45 WBC 7.04 (4.4-10.8) 10^3/uL RBC 4.57 (3.93-5.22) 10^6/uL Hgb 14.2 (11.2-15.7) g/dL Hct 41.4 (36.0-46.0) % MCV 91 (80-95) fL MCH 31.1 (27.0-33.0) pg MCHC 34.3 (32.0-36.0) % RDW 13.9 (11.7-14.6) % Plt Count 334 (130-400) 10^3/uL MPV 9.4 (8.0-11.0) fL Immature Gran % 0.3 % Neutrophils % 79.8 % Lymphocytes % 12.2 % Monocytes % 5.8 % Eosinophils % 1.3 % Basophils % 0.6 % Nucleated RBC % 0.0 (0.0-0.3) % Absolute Neutrophils 5.62 (1.2-6.7) 10^3/uL Absolute Lymphocytes 0.86 L (1.2-3.4) 10^3/uL Absolute Monocytes 0.41 (0.1-0.8) 10^3/uL Absolute Eosinophils 0.09 (0.0-0.7) 10^3/uL Absolute Basophils 0.04 (0.0-0.2) 10^3/uL Sodium 139 (136-145) mmol/L Potassium 3.4 L (3.5-5.1) mmol/L Chloride 102 (98-107) mmol/L Carbon Dioxide 23.8 (21.0-32.0) mmol/L Anion Gap 13.2 H (3-11) mmol/L BUN 10 (7-18) mg/dL Creatinine 0.7 (0.55-1.02) mg/dL Est GFR (CKD-EPI 2020) 115.59 (mL/min/1.73m2) Glucose 86 (74-106) mg/dL Calcium 9.3 (8.5-10.1) mg/dL Magnesium 1.9 (1.8-2.4) mg/dL Total Bilirubin 2.9 H (0.2-1.0) mg/dL AST 612 H (15-37) U/L ALT 451 H (14-59) U/L Alkaline Phosphatase 157 H (46-116) U/L Total Protein 7.8 (6.4-8.2) g/dL Albumin 4.0 (3.4-5.0) g/dL Lipase 35 (<78) U/L Urine Color Norma (Yellow) Urine Clarity Clear (Clear) Urine pH 7.0 (5-8) Ur Specific [place] 1.015 (1.005-1.025) Urine Protein Negative (Neg-Trace) mg/dL Urine Ketones Negative (Negative) mg/dL Urine Blood Trace-intact H (Negative) Urine Nitrite Negative (Negative) Urine Bilirubin Small H (Negative) Urine Urobilinogen 1.0 H (Up to 0.2) mg/dL Ur Leukocyte Esterase Negative (Negative) Urine RBC 0-2 (0-2) HPF Urine WBC 0-2 (0-5) HPF Ur Epithelial Cells Few (Negative) HPF Urine Crystals Negative (Negative) HPF Urine Bacteria Few (Negative) HPF Urine Casts Negative (Negative) LPF Urine Mucus Negative (Negative) Ur Culture Indicated? No Urine Glucose Negative (Negative) mg/dL [id number] Documentation POC Urine Test Start: 09/11/24 09:36 Freq: .Urine Test Status: Active Protocol: Activity Type Activity Date Activity User E-sign Co-sign Detail Recorded Client Recorded Date Recorded By Document 09/11/24 11:44 ARINA [id number] 09/11/24 11:44 ARINA Intake and Output - 24 Hour Total 09/11/24 09:33 thru 09/11/24 09:37 Weight 125.645 kg Falls Risk Assessment History of Falls No History 09/11/24 10:13 Contributing Factors No Factors 09/11/24 10:13 Ambulatory Aids Independent 09/11/24 10:13 Tubes/Lines W/no contributing factors 09/11/24 10:13 Fall Total Score 10 09/11/24 10:13 Level of Risk Standard/Low Risk 09/11/24 10:13 Problems (Last Reviewed 04/19/24 @ 08:48 by Erica Mullins NP) Cholelithiasis (Acute) v v v v v v v v v Sending and/or Receiving Nurses: Please use comment section below to note any information pertinent to the patient hand-off not included above. Information / Comments: Report called at 18:18. Pt reported as walky-talky, pending OR Report received from: Lena Arteaga ED RN
--- NOTE | 2024-09-11 20:32 | HPE_ITS ---
Date of service: 09/11/24 Time of Service: 12:30 Assessment and Plan Assessment and plan (1) Acute cholecystitis due to biliary calculus: Status: Acute Assessment and plan: acute cholecystitis with possible choledocholithiasis vs a passed stone. US images reviewed, CBD is >5mm in 34yo F, which counts as dilated to me. No clear stones in duct, and dilation appears diffuse rather than acutely or abrptly tapering. Will treat chlecystitis w abx while awaiting rest of evaluation of the elevated liver enzymes and dilated common bile duct as noted below. Zosyn ordered. GB rest with clear and NPO at midnight for lap darci or possbly ercp tomorrow if choledocholithiasis is found. (2) Elevated liver enzymes: Status: Acute Assessment and plan: suggestive of a passed stone. will plan recheck in AM. If worsening, will plan MRCP vs ERCP depending on severity of change. CBD is nildly dilated at greater than 5mm without visualized stone. Decreasing labs on recheck suggest passed stone and cholecystectomy can be done. recheck ordered for AM labs. History of Present Illness History of Present Illness Chief Complaint: stomach hurts Narrative: 34yo F with acute cholecystitis and elevated liver enzymes. she developed severe RUQ pain last night at 1145pm. Has never had pain like this before. It started suddenly and increased to become severe very quickly. She had nausea and emesis of nonbloody material multiple times since onset. Pain radiates to her right flank/back. has not gone away, is constant. Review of Systems All systems reviewed & are unremarkable except as noted in HPI and below PFSH All Active Problems (Updated 09/11/24 @ 21:14 by Eduarda Akers MD) Elevated liver enzymes (Acute) Acute cholecystitis due to biliary calculus (Acute) Cholelithiasis (Acute) Pulmonary nodule (Acute) Essential hypertension (Chronic) Depressive disorder (Chronic) Generalized anxiety disorder (Chronic) Interstitial cystitis (Chronic) Mild obstructive sleep apnea (Chronic) PSG 10/07/14. Managing with position changes and wt loss Presence of Liletta IUD (Chronic) Liletta IUD placed 02/22/24 Celiac disease (Chronic) External hemorrhoids (Chronic) Axillary hidradenitis suppurativa (Chronic) Rosacea (Chronic) Allergic rhinitis (Chronic) Obesity (Chronic) Medical History Arthralgia [facility] [place] Rheumatology consulted 2021, secondary to minocycline they suspect. Migraine headache without aura GERD (gastroesophageal reflux disease) ADHD (attention deficit hyperactivity disorder), inattentive type Surgical History S/P colonoscopy (08/09/11) Hx of esophagogastroduodenoscopy (08/09/11) Family History Mother Asthma Father Hypertension Sister No problems noted. Daughter No problems noted. Maternal Grandfather Heart disease Hypertension Maternal Grandmother Hyperlipidemia Paternal Grandfather , at 85 Prostate cancer Paternal Grandmother Heart disease Hypertension Stroke Depression Social History Smoking/Tobacco Use Status: Former Tobacco Use tobacco type: cigarettes Quit Date: 11/27/20 Tobacco: How many years used: 16 Quit status: has quit before Second Hand Exposure: Yes Smoking risk assessment performed?: Yes Alcohol Intake: current Alcohol Intake frequency: a few times a month Alcohol type: beer Drug use: Never Substance use type: does not use Caregiver/Support person: No Household members: children Housing: house Communication Needs: None Do you need help understanding health information?: Rarely current occupation: [employer] Pets and animals: Yes Pets and animals: cat(s) Sexually active: Yes Do you think of yourself as: straight/heterosexual Current gender identity: female What is your relationship status?: never How often do you talk on the phone with friends or family?: twice per week How often do you get together with friends or relatives?: once per week Do you belong to any clubs or organized social groups?: no Panel score (0-1 are the most socially isolated patients): 1 What type of physical activity do you participate in: yoga Duration: < 15 minutes/day Frequency: 1-2 times per week Katie/Anabaptism: No preference Special katie needs: No Seatbelt use: always Helmet use: Yes Helmet use: always Drive 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 or 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 w/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 Water heater temp set <120 deg: No Working smoke detector in home: Yes Fire extinguisher in home: Yes Carbon monox detector in home: Yes Firearms in home: No Do you feel safe at home: Yes Do you feel safe in your relationship?: Yes Victim of physical abuse: No Victim of emotional abuse: No Victim of sexual abuse: No Female Reproductive History Menstrual control method: progestin IUCD History History 2 1 Para 1 Hx # Term Pregnancies Multiple births Hx # Pregnancies Ectopic pregnancies AB induced Hx Number of Living Children AB spontaneous Meds Allergies and Home Medications Allergies Allergy/AdvReac Type Severity Reaction Status Date / Time gluten Allergy Nausea Verified 09/11/24 09:39 lactose AdvReac GI Verified 09/11/24 09:39 oxybutynin AdvReac Other (See Verified 09/11/24 09:39 Comment) [facility] AdvReac Suicidal Verified 09/11/24 09:39 thoughts Home Medications ?Medication ?Instructions ?Recorded ?Confirmed ?Type omeprazole 20 mg capsule,delayed 20 mg PO DAILY PRN he artburn #90 03/09/23 09/11/24 Rx release caps albuterol sulfate 90 mcg/actuation 2 puff inhalation Q 6H PRN 06/15/23 09/11/24 Rx aerosol inhaler (Ventolin HFA) shortness of breath or wheezing #18 grams sertraline 50 mg tablet 75 mg (1.5 x 50 mg) PO DAILY #135 01/24/24 09/11/24 Rx tabs levonorgestrel 20.4 mcg/24 hr (up 1 device intrauterin e ONCE 02/22/24 09/11/24 History to 8 yrs) 52 mg intrauterine device (Liletta) ondansetron 4 mg disintegrating 4 mg PO Q8H PRN #30 ta bs 04/16/24 09/11/24 Rx tablet tirzepatide (weight loss) 12.5 12.5 mg (0.5 mL) subcut QWEEK #2 mL 08/16/24 09/11/24 Rx mg/0.5 mL subcutaneous pen injector Exam Narrative Exam Narrative: awake, NAD eomi, MMM midline trachea, neck is symmetric PULM: normal resp effort, equal chest rise with respiration, no wheezing audible CARDIAC: normal PMI, no jvd, regular rate, normal perfusion abdomen is nondistended. Neg murpheys sign, recent medication given for pain. no peritonitis. TTP RUQ extremities are without deformity, normal movement of all four extremities speech is clear and coherent mood and affect are congruent, no focal neurological deficits skin without rash Results Imaging Abdominal ultrasound report/results: report reviewed and image reviewed Labs 09/11/24 10:09 09/11/24 10:09 Labs: Laboratory Results - last 24 hr 09/11/24 09/11/24 09:45 10:09 WBC 7.04 RBC 4.57 Hgb 14.2 Hct 41.4 MCV 91 MCH 31.1 MCHC 34.3 RDW 13.9 Plt Count 334 MPV 9.4 Immature Gran % 0.3 Neutrophils % 79.8 Lymphocytes % 12.2 Monocytes % 5.8 Eosinophils % 1.3 Basophils % 0.6 Nucleated RBC % 0.0 Absolute Neutrophils 5.62 Absolute Lymphocytes 0.86 L Absolute Monocytes 0.41 Absolute Eosinophils 0.09 Absolute Basophils 0.04 Sodium 139 Potassium 3.4 L Chloride 102 Carbon Dioxide 23.8 Anion Gap 13.2 H BUN 10 Creatinine 0.7 Est GFR (CKD-EPI 2020) 115.59 Glucose 86 Calcium 9.3 Magnesium 1.9 Total Bilirubin 2.9 H AST 612 H ALT 451 H Alkaline Phosphatase 157 H Total Protein 7.8 Albumin 4.0 Lipase 35 Urine Color Norma Urine Clarity Clear Urine pH 7.0 Ur Specific [place] 1.015 Urine Protein Negative Urine Ketones Negative Urine Blood Trace-intact H Urine Nitrite Negative Urine Bilirubin Small H Urine Urobilinogen 1.0 H Ur Leukocyte Esterase Negative Urine RBC 0-2 Urine WBC 0-2 Ur Epithelial Cells Few Urine Crystals Negative Urine Bacteria Few Urine Casts Negative Urine Mucus Negative Ur Culture Indicated? No Urine Glucose Negative Last Vital Signs Temp 98.1 F 09/11/24 18:43 Pulse 72 09/11/24 18:43 Resp 16 09/11/24 18:43 BP 108/92 H 09/11/24 18:43 Pulse Ox 100 09/11/24 18:43 H&P: Quality VTE Contraindication No VTE Prophylaxis: Contraindicated (tentative procedure plans tomorrow) Time Spent Time spent with Patient: <40 minutes Time was spent: preparing to see the patient(eg.review tests), ordering medications,tests, procedures, indepentently interpreting results and counseling the patient
[2024-09-11] MEDS: Normal Saline Flush 10 ML SYR IVP (21:38)
[2024-09-11] MEDS: PIPERACILLIN/TAZO 3.375 GM in Normal Saline 50 ML IVPB (23:06)
[2024-09-12] VITALS (21 sets, daily range): BP systolic 127–159; BP diastolic 76–98; PULSE 81–97; RESP 11–30; TEMP 36.2–37.2; O2SAT 95–98; BMI 47.5
[2024-09-12] MEDS: PIPERACILLIN/TAZO 3.375 GM in Normal Saline 50 ML IVPB (06:07)
[2024-09-12 07:00] LABS: HCT 38.0 % (36.0-46.0); HGB 12.8 g/dL (11.2-15.7); MCH 31.1 pg (27.0-33.0); MCHC 33.7 % (32.0-36.0); MCV 93 fL (80-95); MPV 9.4 fL (8.0-11.0); Platelet Count 293 10^3/uL (130-400); RBC 4.11 10^6/uL (3.93-5.22); RDW 14.2 % (11.7-14.6); RDW-SD 47.9 fL; WBC 5.26 10^3/uL (4.4-10.8)
--- NOTE | 2024-09-12 07:35 | PGE_ITS ---
Date of Service Date of service: 09/12/24 Time of Service: 07:35 Assessment and Plan Assessment and plan (1) Acute cholecystitis due to biliary calculus: Status: Acute Assessment and plan: Acute cholecystitis with possible choledocholithiasis vs a passed stone. Awaiting AM labs to help determine if she will require an MRCP vs. okay to proceed with laparoscopic cholecystectomy. With her improvement in her symptoms this morning, this is reassuring. Ordered Acetaminophen and Toradol PRN for if she wishes to take something for her migraine symptoms. Continue Zosyn Continue with NPO Encouraged ambulation and sitting in the chair throughout the morning. labs showed bilirubin up to 4 range, other labs about the same. MRCP done and shows normal CBD with stones in cystic duct only. Elevated bilirubin likely bile stasis. Will proceed with cholecystectomy. normal MRCP I do not plan a cholangiogram. Agree w Karen Janesn note, assessment and plan. (2) Elevated liver enzymes: Status: Acute Assessment and plan: suggestive of a passed stone. will plan recheck in AM. If worsening, will plan MRCP vs ERCP depending on severity of change. CBD is mildly dilated at greater than 5mm without visualized stone. Decreasing labs on recheck suggest passed stone and cholecystectomy can be done. recheck ordered for AM labs. Subjective Subjective Interval history since last seen: Clarissa reports that her symptoms are improved today. She is feeling much better and is optimist and eager to proceed with surgery if possible. She reports that today she is having a migraine and generally at home she take ibuprofen to help with them. Exam Const General: cooperative, healthy appearing and comfortable Orientation: alert and oriented x3 Resp Effort & Inspection: normal respiratory effort, no audible wheezes and no cough GI Inspection: normal to inspection Palpation: soft, no guarding and nontender Auscultation: normal bowel sounds Objective Last Vital Signs Temp 36.2 C L 09/11/24 21:22 Pulse 96 H 09/11/24 21:22 Resp 18 09/11/24 21:22 BP 129/79 09/11/24 21:22 Pulse Ox 98 09/11/24 21:22 Laboratory Results - last 24 hr 09/11/24 09/11/24 09/12/24 09:45 10:09 06:43 WBC 7.04 5.26 RBC 4.57 4.11 Hgb 14.2 12.8 Hct 41.4 38.0 MCV 91 93 MCH 31.1 31.1 MCHC 34.3 33.7 RDW 13.9 14.2 Plt Count 334 293 MPV 9.4 9.4 Immature Gran % 0.3 Neutrophils % 79.8 Lymphocytes % 12.2 Monocytes % 5.8 Eosinophils % 1.3 Basophils % 0.6 Nucleated RBC % 0.0 Absolute Neutrophils 5.62 Absolute Lymphocytes 0.86 L Absolute Monocytes 0.41 Absolute Eosinophils 0.09 Absolute Basophils 0.04 Sodium 139 Potassium 3.4 L Chloride 102 Carbon Dioxide 23.8 Anion Gap 13.2 H BUN 10 Creatinine 0.7 Est GFR (CKD-EPI 2020) 115.59 Glucose 86 Calcium 9.3 Magnesium 1.9 Total Bilirubin 2.9 H AST 612 H ALT 451 H Alkaline Phosphatase 157 H Total Protein 7.8 Albumin 4.0 Lipase 35 Urine Color Norma Urine Clarity Clear Urine pH 7.0 Ur Specific [place] 1.015 Urine Protein Negative Urine Ketones Negative Urine Blood Trace-intact H Urine Nitrite Negative Urine Bilirubin Small H Urine Urobilinogen 1.0 H Ur Leukocyte Esterase Negative Urine RBC 0-2 Urine WBC 0-2 Ur Epithelial Cells Few Urine Crystals Negative Urine Bacteria Few Urine Casts Negative Urine Mucus Negative Ur Culture Indicated? No Urine Glucose Negative Time Spent with Patient Time Spent with Patient: <25 minutes Time was spent: preparing to see the patient(eg.review tests), obtaining and/or reviewing separately otained hiistory, ordering medications,tests, procedures and counseling the patient
[2024-09-12 07:38] LABS: ALT 474 U/L (14-59); AST 353 U/L (15-37); Albumin 3.3 g/dL (3.4-5.0); Alkaline Phosphatase 178 U/L (46-116); Anion Gap 9.4 mmol/L (3-11); BUN 7 mg/dL (7-18); Bilirubin, Direct 3.1 mg/dL (0.0-0.2); Bilirubin, Total 4.7 mg/dL (0.2-1.0); CO2 28.6 mmol/L (21.0-32.0); Calcium 8.5 mg/dL (8.5-10.1); Chloride 104 mmol/L (98-107); Estimated GFR 115.59 (mL/min/1.73m2); Glucose 81 mg/dL (74-106); Potassium 3.5 mmol/L (3.5-5.1); Sodium 142 mmol/L (136-145); Total Protein 6.7 g/dL (6.4-8.2)
--- NOTE | 2024-09-12 07:39 | W.PM.PROGNOT ---
Date of Service Date of service: 09/12/24 Time of Service: 07:39 Assessment and Plan Assessment and plan (1) Acute cholecystitis due to biliary calculus: Status: Acute Assessment and plan: Plan lap cholecystectomy once the liver enzymes are sorted out. Discussed lap darci today, and patient asked questions and verbalized understanding. Discussed risk of pain, bleeding, infection, damage to bile ducts, bile leak, open procedure. Will plan cholecystectomy for today if liver enzymes are improved. If liver enzymes are worse, this may suggest choledocholithiasis and MRCP may be ordered. (2) Elevated liver enzymes: Status: Acute Assessment and plan: trend today, result pending. If worsening, will plan mrcp. If better, proceed with cholecystectomy. Subjective Subjective Interval history since last seen: Patient reports that her pain has decreased. Instead of sharp severe constant pain in the right upper quadrant, she now has dull pain only. No nausea. Exam Narrative Exam Narrative: Awake, NAD eomi, MMM normal resp effort abdomen is soft, nondistended and minimally tender no edema in extremities normal affect, mood is congruent speech clear and coherent Objective Last Vital Signs Temp 97.2 F L 09/11/24 21:22 Pulse 96 H 09/11/24 21:22 Resp 18 09/11/24 21:22 BP 129/79 09/11/24 21:22 Pulse Ox 98 09/11/24 21:22 Laboratory Results - last 24 hr 09/11/24 09/11/24 09/12/24 09:45 10:09 06:43 WBC 7.04 5.26 RBC 4.57 4.11 Hgb 14.2 12.8 Hct 41.4 38.0 MCV 91 93 MCH 31.1 31.1 MCHC 34.3 33.7 RDW 13.9 14.2 Plt Count 334 293 MPV 9.4 9.4 Immature Gran % 0.3 Neutrophils % 79.8 Lymphocytes % 12.2 Monocytes % 5.8 Eosinophils % 1.3 Basophils % 0.6 Nucleated RBC % 0.0 Absolute Neutrophils 5.62 Absolute Lymphocytes 0.86 L Absolute Monocytes 0.41 Absolute Eosinophils 0.09 Absolute Basophils 0.04 Sodium 139 Potassium 3.4 L Chloride 102 Carbon Dioxide 23.8 Anion Gap 13.2 H BUN 10 Creatinine 0.7 Est GFR (CKD-EPI 2020) 115.59 Glucose 86 Calcium 9.3 Magnesium 1.9 Total Bilirubin 2.9 H AST 612 H ALT 451 H Alkaline Phosphatase 157 H Total Protein 7.8 Albumin 4.0 Lipase 35 Urine Color Norma Urine Clarity Clear Urine pH 7.0 Ur Specific [place] 1.015 Urine Protein Negative Urine Ketones Negative Urine Blood Trace-intact H Urine Nitrite Negative Urine Bilirubin Small H Urine Urobilinogen 1.0 H Ur Leukocyte Esterase Negative Urine RBC 0-2 Urine WBC 0-2 Ur Epithelial Cells Few Urine Crystals Negative Urine Bacteria Few Urine Casts Negative Urine Mucus Negative Ur Culture Indicated? No Urine Glucose Negative Time Spent with Patient Time Spent with Patient: <25 minutes Time was spent: preparing to see the patient(eg.review tests), counseling the patient and care coordination
--- NOTE | 2024-09-12 08:50 | DI.MRI_ITS ---
Exam(s) MR ABDOMEN WO EXAM: MR ABDOMEN WO CLINICAL HISTORY: elevated liver enzymes, gb, choledocholithiasis? TECHNIQUE: Multiplanar multisequence MRI of the Abdomen was performed. COMPARISON: CT CT ABDOMEN PELVIS W from 04/16/2024 US US ABDOMEN LIMITED from 09/11/2024 FINDINGS: Lung bases: Unremarkable. Liver: There is no evidence of a hepatic mass. There is normal signal intensity of the liver. There is no intrahepatic biliary ductal dilatation. Pancreas: Unremarkable. Gallbladder and Bile Ducts: There is cholelithiasis. There is no biliary ductal dilatation. There do appear to be small stones in the cystic duct (series 3001, image 17). No stones are identified in the common bile duct.. No pericholecystic fluid is seen. Adrenals: Unremarkable. Kidneys: There is no suspicious renal mass. No evidence of hydronephrosis. Spleen: Unremarkable. Bowel: There is no evidence of bowel obstruction or bowel wall thickening. Aorta: Unremarkable. Soft Tissues: Unremarkable. Bone: Unremarkable. Lymph Nodes: Unremarkable. IMPRESSION: 1. Cholelithiasis. No biliary ductal dilatation. 2. There do appear to be small stones seen within the cystic duct. No stones are seen in the common bile duct. DATA REPOSITORY:
[2024-09-12] MEDS: ACETAMINOPHEN 1,000 MG/100 ML BAG 400 MG IVPB (10:28)
[2024-09-12] MEDS: Normal Saline Flush 10 ML SYR IVP (10:29)
--- NOTE | 2024-09-12 10:53 | W.ANESPRE ---
General Info Date of Service Date Performed: 09/12/24 Height: 5 ft 4 in Weight: 125.645 kg Body Mass Index (BMI): 47.5 Surgical Procedure: Operation Date: 09/12/24 12:10 Proposed Procedure Side Surgeon p Cholecystectomy Laparoscopic Eduarda Akers MD Meds Allergies and Home Medications Allergies Allergy/AdvReac Type Severity Reaction Status Date / Time gluten Allergy Nausea Verified 09/11/24 09:39 lactose AdvReac GI Verified 09/11/24 09:39 oxybutynin AdvReac Other (See Verified 09/11/24 09:39 Comment) semaglutide (From [facility]) AdvReac Suicidal Verified 09/11/24 09:39 thoughts Home Medication ?Medication ?Instructions ?Recorded omeprazole 20 mg capsule,delayed 20 mg PO DAILY PRN heartburn #90 03/09/23 release caps albuterol sulfate 90 mcg/actuation 2 puff inhalation Q6H PRN 06/15/23 aerosol inhaler (Ventolin HFA) shortness of breath or wheezing #18 grams sertraline 50 mg tablet 75 mg (1.5 x 50 mg) PO DAILY #135 01/24/24 tabs levonorgestrel 20.4 mcg/24 hr (up 1 device intrauterine ONCE 02/22/24 to 8 yrs) 52 mg intrauterine device (Liletta) ondansetron 4 mg disintegrating 4 mg PO Q8H PRN #30 tabs 04/16/24 tablet tirzepatide (weight loss) 12.5 12.5 mg (0.5 mL) subcut QWEEK #2 mL 08/16/24 mg/0.5 mL subcutaneous pen injector Current Visit Medications: Current Medications Generic Name Dose Route Start Last Admin Trade Name Freq PRN Reason Stop Dose Admin Ringer's Solution 1,000 mls @ 125 mls/hr 09/11/24 13:00 09/12/24 10:40 IV Infused INFUSION KATHY Infusion Piperacillin Sod/Tazobactam 50 mls @ 12.5 mls/hr 09/11/24 22:00 09/12/24 10:40 Sod 3.375 gm/ Sodium Chloride IVPB Infused Q8H KATHY Infusion Acetaminophen 1,000 mg in 100 mls @ 400 mls/hr 09/12/24 07:36 09/12/24 10:28 Ofirmev IVPB 400 mls/hr Q6H PRN PRN Administration IV Miscellaneous Supplies 1 each 09/11/24 13:00 Iv Access IV DIRECTED [facility] Ketorolac Tromethamine 15 mg 09/12/24 07:36 Ketorolac 15 Mg/Ml Vial IM 09/17/24 07:35 Q6H PRN PRN Morphine Sulfate 2 mg 09/11/24 14:17 Morphine 10 Mg/Ml Vial IVP Q2H PRN PRN Omeprazole 20 mg 09/11/24 20:46 Omeprazole 20 Mg Capcr PO DAILY PRN PRN Heartburn Ondansetron HCl 4 mg 09/11/24 14:17 Ondansetron 4 Mg/2 Ml Vial IVP Q6H PRN PRN Nausea / Vomiting Sertraline HCl 75 mg 09/12/24 10:00 Sertraline 50 Mg Tab PO DAILY KATHY Sodium Chloride 0 ml 09/11/24 12:59 Normal Saline Flush 10 Ml Syr IVP PRN PRN Sodium Chloride 0 ml 09/11/24 20:00 09/12/24 10:29 Normal Saline Flush 10 Ml Syr IVP 10 ml BID KATHY Administration Sodium Chloride 0 ml 09/11/24 12:59 Normal Saline 10 Ml Vial IJ DIRECTED PRN PFSH Active Problems Active Problems: Problem Status Onset Code Elevated liver enzymes Acute R74.8 Acute cholecystitis due to biliary calculus Acute K80.00 Cholelithiasis Acute K80.20 Pulmonary nodule Acute R91.1 Essential hypertension Chronic I10 Depressive disorder Chronic F32.9 Generalized anxiety disorder Chronic F41.1 Interstitial cystitis Chronic N30.10 Mild obstructive sleep apnea Chronic G47.33 Presence of Liletta IUD Chronic Z97.5 Celiac disease Chronic K90.0 External hemorrhoids Chronic K64.4 Axillary hidradenitis suppurativa Chronic L73.2 Rosacea Chronic L71.9 Allergic rhinitis Chronic J30.9 Obesity Chronic E66.9 Medical History Medical History Arthralgia [facility] [place] Rheumatology consulted 2021, secondary to minocycline they suspect. Migraine headache without aura GERD (gastroesophageal reflux disease) ADHD (attention deficit hyperactivity disorder), inattentive type Surgical History Surgical History S/P colonoscopy (08/09/11) Hx of esophagogastroduodenoscopy (08/09/11) Tobacco Smoking/Tobacco Use Status: Former Tobacco Use Passive smoking exposure: No Second hand exposure: Yes Alcohol Alcohol Intake: current Alcohol intake frequency: a few times a month Alcohol type: beer Substance Use Substance use: Never Substance use type: does not use Prental History History 1 Para 1 Hx # Term Pregnancies Multiple births Hx # Pregnancies Ectopic pregnancies AB induced Hx Number of Living Children AB spontaneous Vital Signs and Lab Results Vital Signs Most Recent Vital Signs in EMR: Most Recent Vital Signs Temp Pulse Resp BP Pulse Ox 36.4 C L 82 16 127/83 98 09/12/24 07:44 09/12/24 07:44 09/12/24 07:44 09/12/24 07:44 09/12/24 07:44 Point of Care Results Point of Care Results: POC- Test(urine) Negative 09/11/24 11:44 Lab Results 09/12/24 06:43 09/12/24 06:43 Complete Blood Count: WBC, (4.4-10.8) 5.26 10^3/uL Today, 06:43 RBC, (3.93-5.22) 4.11 10^6/uL Today, 06:43 Hgb, (11.2-15.7) 12.8 g/dL Today, 06:43 Hct, (36.0-46.0) 38.0 % Today, 06:43 Plt Count, (130-400) 293 10^3/uL Today, 06:43 Complete Metabolic Panel: Sodium, (136-145) 142 mmol/L Today, 06:43 Potassium, (3.5-5.1) 3.5 mmol/L Today, 06:43 Chloride, (98-107) 104 mmol/L Today, 06:43 Carbon Dioxide, (21.0-32.0) 28.6 mmol/L Today, 06:43 BUN, (7-18) 7 mg/dL Today, 06:43 Creatinine, (0.55-1.02) 0.7 mg/dL Today, 06:43 Est GFR (CKD-EPI 2020), (mL/min/1.73m2) 115.59 Today, 06:43 Magnesium, (1.8-2.4) 1.9 mg/dL 09/11/24, 10:09 Calcium, (8.5-10.1) 8.5 mg/dL Today, 06:43 Albumin, (3.4-5.0) 3.3 g/dL L Today, 06:43 Glucose, (74-106) 81 mg/dL Today, 06:43 Liver Function Panel: ALT, (14-59) 474 U/L H Today, 06:43 AST, (15-37) 353 U/L H Today, 06:43 Pancreas Panel: Lipase, (<78) 35 U/L 09/11/24, 10:09 Imaging and Studies Imaging and Studies Study information below may be from another EMR and interpreted by another provider. Please see original notes in EMR for more complete details. Echocardiogram Summary: 03/2022: Conclusion Normal left ventricular wall thickness and chamber size. Estimated ejection fraction is 60%. Wall motion is normal Normal right ventricular size and systolic function Both atria are normal in size There is no structural or hemodynamically significant valvular disease Mildly dilated ascending aorta measuring 3.44 cm Anesthesia Assessment and Plan Anesthesia History Personal History: No History of Anesthesia Complications Family History: No Family History of Anesthesia Complications Exercise Tolerance Exercise Tolerance: Metabolic Equivalents>4 Pertinent Negatives Pertinent Negatives: No Symptoms of GERD, No Major Cardiovascular Symptoms or Complaints, No Major Pulmonary Symptoms or Complaints and No History of CVA/TIA Cardiac & Pulmonary Exam Cardiac Exam: Normal S1/S2 Heart Sounds Pulmonary Exam: Clear Bilateral Breath Sounds Implantable Cardiac Device Does patient have a Pacemaker or an ICD?: No Airway Exam Known Difficult Airway: No Mallampati Class: 2 Mouth Opening: Normal (> 3cm) Thyromental Distance: Greater than 3 cm Neck Range of Motion: Full ROM Neck Circumference: Normal Teeth Condition: Normal Dentition ASA Classification ASA Score: ASA 3 Emergency Case?: No NPO Status NPO Status: NPO Clears >2 hours, Solids >8 hours Status Status: Negative HCG Anesthesia Plan Resuscitation Status: Full Code Anesthesia Technique: General Anesthesia Airway Planned: Endotracheal Tube Monitors Used: Standard Monitors
--- NOTE | 2024-09-12 11:00 | PDOC.CMIN ---
Date of service: 09/12/24 Time of Service: 11:00 Care Management Initial Assmt Initial Assessment Reason for Hospitalization: cholelithiasis Functional Status/Living Situation Patient Presentation: Clarissa present to the ED yesterday morning with c/o severe intermittent right upper quadrant pain since the night before. The pain woke her from sleep. She had diarrhea, and attributed the pain to that, but the pain persisted. Pain is accompanied by nausea and vomiting as well as shortness of breath. Pain was noted to be anywhere from 6-10/10. Clarissa was found to have acute cholecystitis due to biliary calculus. Lap cholecystectomy was performed this afternoon. Clarissa was very alert when CM met with her post surgery. Her sister was also present. Both were very pleasant. Clarissa stated that she would like to go home tonight. She misses her daughter and her cat. She feels confident she can care for herself tonight, and if not, her sister is only 5 minutes away. Clarissa was given a work note to return on Monday with 20# lifting restrictions. Clarissa works at a [employer], and does not feel that this will be a problem. Town of Residence: [place] Resides with: Child (daughter, Alyssa is 7.5yrs old) Significant Other/Family: Local (mom, Anabel and dad, Mike) Natural Supports: family Employment Status: Employed (works at [employer] in [place]. 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.) Instrumental Activities of Daily Living (ADLs): Independent Advance Directives Advance Directives: Do you have an Advance Directive: Y 12/21/17, 08:11 AD On File at [facility]: Y 12/21/17, 08:11 Date Asked 09/11/24 09/11/24, 09:41 AD Date Reviewed 09/11/24 09/11/24, 18:30 COLST On File at [facility] COLST Date Scanned Code Status Resuscitation Status Full Code Insurance Coverage/Financial Issues Insurance: [employer] - FINANCIAL ASST 100 - [id number] Care Team Visit Care Team Role Provider Type Erica Mullins NP Primary Care Provider NURSE PRACTITIONER Lena Alston Emergency Provider NURSE PRACTITIONER Eduarda Akers MD Admit Provider [facility] STAFF PHYSICIAN Attending Provider Discharge Potential Discharge Needs: PCP F/U Appt and Surgical F/U Appt Anticipated Barriers to Discharge: None Identified Patient/Family Education Needs: Review discharge instructions, discuss Ask Me Three Transportation: Private vehicle Plan: Clarissa will likely discharge home tonight with no new services. She will f/u with her PCP and the surgeon and continue per her plan of care. Clarissa will transport home in a private vehicle with her sister. Social Determinants of Health Screening Social Determinants of health last assessed in clinic: 09/11/24 Will the Patient Participate in the Screening?: Unable to obtain Do you worry about having a steady place to live?: yes What is your living situation today?: I do not have steady housing Problems where you live: no known problems In the past 12 months, have you had to go without electric, gas, oil or water in your home?: no Has lack of transportation kept you from medical appointments or from doing things needed for daily living?: no Has anyone in your life made you feel unsafe or unsupported?: no How hard is it for you to pay for the very basics like food, housing, medical care, and heating? Would you say it is:: Not hard at all Do you want help finding or keeping work or a job?: I do not need or want help If for any reason you need help with day-to-day activities such as bathing, preparing meals, shopping, managing finances, etc., do you get the help you need?: I don?t need any help How often do you feel lonely or isolated from those around you?: Never Do you speak a language other than Tajik at home?: No Health Related Social Needs Health related social needs: housing instability, housed, with risk of homelessness (Z59.811) [facility] All Active Problems Elevated liver enzymes (Acute) Acute cholecystitis due to biliary calculus (Acute) Cholelithiasis (Acute) Pulmonary nodule (Acute) Essential hypertension (Chronic) Depressive disorder (Chronic) Generalized anxiety disorder (Chronic) Interstitial cystitis (Chronic) Mild obstructive sleep apnea (Chronic) PSG 10/07/14. Managing with position changes and wt loss Presence of Liletta IUD (Chronic) Liletta IUD placed 02/22/24 Celiac disease (Chronic) External hemorrhoids (Chronic) Axillary hidradenitis suppurativa (Chronic) Rosacea (Chronic) Allergic rhinitis (Chronic) Obesity (Chronic) Medical History [place] [facility] [place] [place] consulted 2021, secondary to minocycline they suspect. Migraine headache without aura GERD (gastroesophageal reflux disease) ADHD (attention deficit hyperactivity disorder), inattentive type Surgical History S/P colonoscopy (08/09/11) Hx of esophagogastroduodenoscopy (08/09/11) Family History Mother Asthma Father Hypertension Sister No problems noted. Daughter No problems noted. Maternal Grandfather Heart disease Hypertension Maternal Grandmother Hyperlipidemia Paternal Grandfather , at 85 Prostate cancer Paternal Grandmother Heart disease Hypertension Stroke Depression Social History Smoking/Tobacco Use Status: Former Tobacco Use tobacco type: cigarettes Quit Date: 11/27/20 Tobacco: How many years used: 16 Quit status: has quit before Second Hand Exposure: Yes Smoking risk assessment performed?: Yes Alcohol Intake: current Alcohol Intake frequency: a few times a month Alcohol type: beer Drug use: Never Substance use type: does not use Caregiver/Support person: No Household members: children Housing: house Communication Needs: None Do you need help understanding health information?: Rarely current occupation: [employer] Pets and animals: Yes Pets and animals: cat(s) Sexually active: Yes Do you think of yourself as: straight/heterosexual Current gender identity: female What is your relationship status?: never How often do you talk on the phone with friends or family?: twice per week How often do you get together with friends or relatives?: once per week Do you belong to any clubs or organized social groups?: no Panel score (0-1 are the most socially isolated patients): 1 What type of physical activity do you participate in: yoga Duration: < 15 minutes/day Frequency: 1-2 times per week Katie/Nondenominational: No preference Special katie needs: No Seatbelt use: always Helmet use: Yes Helmet use: always 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
--- NOTE | 2024-09-12 11:55 | CHAPLAIN ---
I had a short visit with Clarissa. She was up in the chair talking with a family member/friend. She was pleasant and told me she was good when I explained my role.
[2024-09-12] MEDS: Lactated Ringers 1,000 ML 30 ML IV (12:25)
[2024-09-12] MEDS: Lactated Ringers 500 ML 30 ML IV (12:25)
[2024-09-12] MEDS: ceFAZolin 2 GM/50 ML BAG 100 GM (12:52)
[2024-09-12] MEDS: Bupivacaine 0.5% Pres-Free W/EPI 30 ML VIAL (13:05)
--- NOTE | 2024-09-12 13:17 | GB_PTH ---
PATIENT: Madelin,Clarissa Dunlap LOC: [place] Pool#:[id number] AGE/SX: 34/F ROOM: RE09/11/[address]: Eduarda Akers MD : 1990 BED: A DIS: 09/12/2024 SPEC #: [id number] RECD: 09/12/24 18:11 STATUS: ROBINA REQ #: [id number] SEPIDEH: 09/12/24 13:[address]: Eduarda Akers DEPT: Surgical Specimen RECD BY: Aleta Thayer ENTERED: 09/12/24 18:12 SP TYPE: GB OTHR DR: CICI Cortez Tissues: 1 - GALLBLADDER Procedures: GROSS AND MICRO LEVEL 3 Comments: [id number]
--- NOTE | 2024-09-12 14:08 | W.PM.OP ---
Operative Note Operative Note Refer to Anesthesia Record Procedure Description: Preoperative diagnosis: Acute cholecystitis Postoperative diagnosis: Acute cholecystitis Procedure: Laparoscopic cholecystectomy Surgeon: Eduarda Akers MD Certified Adapted Physical Educator: SAROJ Vera Anesthesia: GETA + local EBL 50mL Specimen: Gallbladder Complications: None Procedure Description: This is a 34-year-old female who presented to the emergency department for abdominal pain. The evaluation yielded a diagnosis of acute calculus cholecystitis with elevated liver enzymes. Labs were trended and bilirubin increased into 4 range. MRCP was done and confirmed a normal patent common bile duct without choledocholithiasis. Cholecystectomy was indicated. We discussed the procedure risks, benefits, alternatives, and expectations. All of the patient's questions were answered to their satisfaction. Informed consent was obtained and the patient was transferred to the operating room. She was placed supine on the operating table. SCDs were placed and all pressure points were padded appropriately. General anesthesia was induced. The abdomen was clipped prepped and draped in the usual sterile fashion. Timeout was performed. Local anesthetic was infiltrated underneath the umbilicus. An incision was made in the skin and the incision carried down to the umbilical stalk using cautery. The umbilical stalk was elevated using a Dimitri clamp and the fascia cleared of its fatty tissues. An incision was made in the fascia, and a Awilda clamp was used to enter the peritoneum. A finger was used to ensure no structures were adhered to the anterior abdominal wall. A Warren trocar was introduced and the abdomen was insufflated to 15 mmHg. Initial laparoscopy confirmed no injury to the intra-abdominal structures. 3 additional 5 mm ports were placed in the upper abdomen under direct visualization. Local anesthetic was infiltrated at each port site. Reverse Trendelenberg position was obtained and she was rotated toward the left. The gallbladder was enlarged and had significant acute inflammatory change including fatty adhesions and edema. The gallbladder dome was grasped and retracted cephalad. The infundibulum was grasped and retracted laterally and a dissection in Calots triangle was pursued with a [place] dissector and a suction tool. 2 tubular structures were dissected free and skeletonized. There was evidence of gallstones in the cystic duct. These gallstones were milked into the gallbladder. A critical view was obtained and the gallbladder cystic duct and cystic artery were identified and confirmed. The cystic duct and cystic artery were clipped and transected with EndoShears. Clip fell off the cystic artery and bleeding occurred and was controlled with additional clips. The gallbladder was then removed from the liver bed with cautery. It was placed into an Endo Catch bag and removed from the abdomen through the umbilicus. The liver bed was examined and hemostasis assured. All irrigation fluid was suctioned out and the patient taken out of reverse Trendelenburg position. The 5 mm ports were removed under direct visualization and the abdomen was desufflated. The umbilical trocar was removed. The umbilical fascia was closed with an 0 Vicryl suture in a [id number] stitch. The incisions were all closed with interrupted 4-0 Monocryl sutures in subcuticular fashion. The incisions were all washed and dried and Steri-Strips applied. The patient tolerated the procedure well. She extubated in the operating room and transferred to the recovery room in stable condition. There were no complications Date of Procedure: 09/12/24
--- NOTE | 2024-09-12 14:21 | W.ANESPOSTOP ---
Postoperative Evaluation Date, Time and Location Date Performed: 09/12/24 Time Performed: 14:21 Patient Location: PACU Vital Signs Most Recent Imported Vital Signs: Most Recent Vital Signs Temp Pulse Resp BP Pulse Ox 36.8 C 86 12 154/79 H 97 09/12/24 14:17 09/12/24 14:20 09/12/24 14:20 09/12/24 14:16 09/12/24 14:20 Pain Score Most Recent Pain Score: Most Recent Pain Score Pain Level 3 09/12/24 14:17 Assessment Mental Status: Awake (Alert & Oriented to Patient Baseline) Airway and Respiratory Function: Patent airway with normal (patient baseline) respiratory exam Cardiovascular Function: Hemodynamically Stable Hydration Status: Adequately Hydrated Nausea & Vomiting: No Nausea or Vomiting Pain: Pain is tolerable per patient Peripheral Nerve Block: Patient did not receive a nerve block
--- NOTE | 2024-09-12 15:15 | DSE_ITS ---
Date of service: 09/12/24 Time of Service: 15:16 DS: Diagnosis Discharge Diagnosis (1) Acute cholecystitis due to biliary calculus: Status: Acute Asessment and Plan: Resolved with cholecystectomy. (2) Elevated liver enzymes: Status: Acute Asessment and Plan: Due to bile stasis and cholecystitis. We will follow your labs as outpatient to ensure they improve now that the gallbladder is out. Discharge Plan Disposition Patient Disposition: Home Condition: Stable Discharge Details Reason For Visit: acute cholecystitis,paulino liver enzymes Admit Date/Time: 09/11/24 13:00 Admit Provider: Eduarda Akers Attending Provider: Eduarda Akers [facility] Hospital Course: This is a 34-year-old female who was seen and evaluated in the emergency department for acute onset severe right upper quadrant pain. Lab and imaging evaluation suggested acute cholecystitis with a dilated common bile duct. The common bile duct was greater than 5 mm in diameter in a 34-year-old female which is dilated. She was admitted and the lab work repeated. Bilirubin increased to 4.9 and the liver enzymes remained elevated. She was sent down for MRCP which was completed quickly. The MRCP showed a patent normal common bile without choledocholithiasis. Stones were seen within the cystic duct. The elevated li soila enzymes were were likely due to bile stasis, and cholecystectomy was indicated. She was taken for laparoscopic cholecystectomy. It was completed without complication. When she met criteria for recovery she was prepared for discharge home. Discharge instructions and return precautions have been reviewed with her. Diet as tolerated 20 pound lifting restriction for 4 weeks total. Shower in 48 hours. Office follow-up in 2 weeks. Outpatient lab follow-up in in 5 days. Recommendations for Follow Up Recommended tests to be ordered by follow up provider: None Home Meds and New Rx's Prescriptions: New hydrocodone-acetaminophen 5-325 mg tablet 1 tab PO Q6H PRNQty: 10 0RF No Action Liletta 20.4 mcg/24 hr (8 yrs) 52 mg intrauterine device 1 device intrauterine ONCE Rx Instructions: as a single dose sertraline 50 mg tablet 75 mg PO DAILY Qty: 135 3RF omeprazole 20 mg capsule,delayed release(DR/EC) 20 mg PO DAILY PRN (Reason: heartburn) Qty: 90 3RF albuterol sulfate [Ventolin HFA] 90 mcg/actuation HFA aerosol inhaler 2 puff Inhalation Q6H PRN (Reason: shortness of breath or wheezing) Qty: 18 4RF tirzepatide (weight loss) 12.5 mg/0.5 mL pen injector 12.5 mg subcut QWEEK Qty: 2 0RF ondansetron 4 mg tablet,disintegrating 4 mg PO Q8H PRNQty: 30 0RF Discharge Instructions Additional Instructions: Shower on 09-14-2024. Wash gently over Steri-Strips with soapy hands, rinse, pat dry. Do not peel strips or submerge them underwater. Do not swim until cleared by the surgeon in the office. Okay to walk, climb stairs, and do activities of everyday life. Do not lift, push, or pull greater than 20 pounds for 4 weeks. You may return to work in 1 week. If you can return to work without breaking the activity restrictions, you may return sooner if you feel well enough to. Activity:: as above Equipment/Supplies:: No Equipment Needed Diet:: As Tolerated DS: Summary Time Spent with Patient providing and/or coordinating discharge services: Less than 30 minutes Status at Discharge Functional status at discharge: independent ambulation Overall status at discharge: patient is progressing back to baseline Mental Status: mental status grossly normal Speech and Movement: speech and movement normal Mood: congruent mood Affect: normal affect Quality:SDOH Health Related Social Needs: Health related social needs risk of homeless Quality: VTE Contraindication No VTE Prophylaxis: Contraindicated (tentative procedure plans tomorrow) Exam Psych Mental Status: mental status grossly normal Speech and Movement: speech and movement normal Mood: congruent mood Affect: normal affect DS: Data Vitals/I&O Vitals and I&O: Vital Signs Temperature 97.2 F L 09/12/24 14:59 Temperature Source Temporal Artery Scan 09/12/24 14:59 Pulse 81 09/12/24 14:59 Pulse Rhythm Regular 09/11/24 21:15 Pulse 83 09/12/24 14:31 Respiratory Rate 16 09/12/24 14:59 Respiratory Effort Normal 09/11/24 21:15 Blood Pressure 144/88 H 09/12/24 14:59 Blood Pressure Mean 106 09/12/24 14:59 Blood Pressure Position Supine 09/11/24 17:57 Pulse Oximetry 95 09/12/24 14:59 Respiratory End-tidal CO2 31 09/12/24 14:26 Oxygen Delivery Method Room Air 09/12/24 14:59 Oxygen Flow Rate 0 09/12/24 14:59 Pain Level 3 09/12/24 14:38 Intake & Output 09/11/24 09/12/24 09/12/24 23:59 11:59 23:59 Intake Total 1100 / 1700 600 / 1700 Balance 1100 / 1700 600 / 1700 Weight 277 lb Intake: IV 1100 / 1700 600 / 1700 Other: Urine Color Yellow Urine Odor Normal Emesis Description None Data Completed and Pending Labs on day of discharge: Labs from last 24 hours 09/12/24 06:43 WBC 5.26 RBC 4.11 Hgb 12.8 Hct 38.0 MCV 93 MCH 31.1 MCHC 33.7 RDW 14.2 Plt Count 293 MPV 9.4 Sodium 142 Potassium 3.5 Chloride 104 Carbon Dioxide 28.6 Anion Gap 9.4 BUN 7 Creatinine 0.7 Est GFR (CKD-EPI 2020) 115.59 Glucose 81 Calcium 8.5 Total Bilirubin 4.7 H Conjugated Bilirubin 3.1 H AST 353 H ALT 474 H Alkaline Phosphatase 178 H Total Protein 6.7 Albumin 3.3 L PFSH All Active Problems Elevated liver enzymes (Acute) Acute cholecystitis due to biliary calculus (Acute) Cholelithiasis (Acute) Pulmonary nodule (Acute) Essential hypertension (Chronic) Depressive disorder (Chronic) Generalized anxiety disorder (Chronic) Interstitial cystitis (Chronic) Mild obstructive sleep apnea (Chronic) PSG 10/07/14. Managing with position changes and wt loss Presence of Liletta IUD (Chronic) Liletta IUD placed 02/22/24 Celiac disease (Chronic) External hemorrhoids (Chronic) Axillary hidradenitis suppurativa (Chronic) Rosacea (Chronic) Allergic rhinitis (Chronic) Obesity (Chronic) Medical History [place] [facility] [place] consulted 2021, secondary to minocycline they suspect. Migraine headache without aura GERD (gastroesophageal reflux disease) ADHD (attention deficit hyperactivity disorder), inattentive type Surgical History S/P colonoscopy (08/09/11) Hx of esophagogastroduodenoscopy (08/09/11) Family History Mother Asthma Father Hypertension Sister No problems noted. Daughter No problems noted. Maternal Grandfather Heart disease Hypertension Maternal Grandmother Hyperlipidemia Paternal Grandfather , at 85 Prostate cancer Paternal Grandmother Heart disease Hypertension Stroke Depression Social History Smoking/Tobacco Use Status: Former Tobacco Use tobacco type: cigarettes Quit Date: 11/27/20 Tobacco: How many years used: 16 Quit status: has quit before Second Hand Exposure: Yes Smoking risk assessment performed?: Yes Alcohol Intake: current Alcohol Intake frequency: a few times a month Alcohol type: beer Drug use: Never Substance use type: does not use Caregiver/Support person: No Household members: children Housing: house Communication Needs: None Do you need help understanding health information?: Rarely current occupation: [employer] Pets and animals: Yes Pets and animals: cat(s) Sexually active: Yes Do you think of yourself as: straight/heterosexual Current gender identity: female What is your relationship status?: never How often do you talk on the phone with friends or family?: twice per week How often do you get together with friends or relatives?: once per week Do you belong to any clubs or organized social groups?: no Panel score (0-1 are the most socially isolated patients): 1 What type of physical activity do you participate in: yoga Duration: < 15 minutes/day Frequency: 1-2 times per week Katie/Episcopal: No preference Special katie needs: No Seatbelt use: always Helmet use: Yes Helmet use: always 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 Water heater temp set <120 deg: No Working smoke detector in home: Yes Fire extinguisher in home: Yes Carbon monox detector in home: Yes Firearms in home: No Do you feel safe at home: Yes Do you feel safe in your relationship?: Yes Victim of physical abuse: No Victim of emotional abuse: No Victim of sexual abuse: No Female Reproductive History Menstrual control method: progestin IUCD History History 1 Para 1 Hx # Term Pregnancies Multiple births Hx # Pregnancies Ectopic pregnancies AB induced Hx Number of Living Children AB spontaneous Time Spent with Patient Time Spent with Patient: 45-69 minutes Time was spent: preparing to see the patient(eg.review tests), ordering medications,tests, procedures, counseling the patient, care coordination and other (operating, reviewing mrcp, discussing lap darci and post op care)
== END 2024-09-12 18:29 | disposition home or self-care (01) ==
LOC: ER 15:34 → MS 09-12 08:38
PROVIDERS: Student in an Organized Health Care Education/Training Program; Admitting Provider Surgery; Emergency Provider Nurse Practitioner Family; PCP Nurse Practitioner Family; Responsible Provider Surgery; Visit Provider Surgery
PROC: 0FT44ZZ Resection of Gallbladder, Percutaneous Endoscopic Approach (ICD-10-PCS; CPT 47562; principal; 2024-09-12 12:00)
DX: K80.00 Calculus of gallbladder with acute cholecystitis without obstruction (principal); Z68.42 Body mass index [BMI] 45.0-49.9, adult; R74.8 Abnormal levels of other serum enzymes; I10 Essential (primary) hypertension; R91.1 Solitary pulmonary nodule; F32.A Depression, unspecified; G47.33 Obstructive sleep apnea (adult) (pediatric); E66.9 Obesity, unspecified; J30.9 Allergic rhinitis, unspecified; L71.9 Rosacea, unspecified; K90.0 Celiac disease; Z79.899 Other long term (current) drug therapy; F90.9 Attention-deficit hyperactivity disorder, unspecified type; K21.9 Gastro-esophageal reflux disease without esophagitis; G43.009 Migraine without aura, not intractable, without status migrainosus; F41.1 Generalized anxiety disorder; L73.2 Hidradenitis suppurativa
CPT/HCPCS: 47562; 36415; 76705; 80053; 81025; 83690; 85027; 96361; 96374; 96375; 99285; 74181; 81003; 81015; 82248; 83735; 85025; 88304; G0378; J0131; J0690; J1100; J1885; J2003; J2250; J2405; J2543; J2704

== ENCOUNTER 2025-01-13 14:20 | Outpatient (REF) | payer OTHER, SELFPAY | END 2025-01-13 14:21 | disposition home or self-care (01) | LOC: LBN 14:20 | PROVIDERS: PCP Nurse Practitioner Family; Visit Provider Physician Assistant | DX: J02.9 Acute pharyngitis, unspecified (principal) | CPT/HCPCS: 87070 ==